=== PATIENT | female | born 1970 | race American Indian/Alaskan Native ===

== ENCOUNTER 2016-12-17 08:56 | Emergency (ER) | payer OTHER ==
[2016-12-17 09:42] LABS: Basophils % (Auto) 1.2 % (0.0-1.8); Eosinophils % (Auto) 1.9 % (0.0-4.3); Hematocrit 24.2 % (30.3-42.9); Hemoglobin 7.8 gm/dl (10.1-14.3); Mean Corpuscular HGB Conc 32 % (30-34); Mean Corpuscular Volume 72 fl (79-97); Platelet Count 166 K/mm3 (140-440); Red Blood Count 3.37 M/mm3 (3.65-5.03); Reticulocyte % 1.85 % (0.78-2.58); White Blood Count 5.9 K/mm3 (4.5-11.0)
[2016-12-17 10:05] LABS: Mean Corpuscular Hemoglobin 23 pg (28-32); Red Cell Distribution Width 21.8 % (13.2-15.2)
[2016-12-17] MEDS ORDERED: ZOFRAN IV ONE (13:07)
[2016-12-17] MEDS ORDERED: NACL 0.9% 1000 ML 1,000 ML IV ONE (13:07)
--- NOTE | 2016-12-17 13:24 | Emergency Department Report ---
ED General Adult HPI - General Chief complaint: Sickle Cell Crisis Stated complaint: SICKLE CELL CRISIS/CHEST PAIN/NAUSEA Time Seen by Provider: 12/17/16 13:06 Source: patient Mode of arrival: Ambulatory Limitations: No Limitations - History of Present Illness MD Complaint: sickle cell crisis -: Gradual Location: buttocks, left, right, upper extremity, lower extremity Radiation: back Severity scale (0 -10): 5 Quality: stabbing, sharp, constant Worsens with: none Associated Symptoms: denies other symptoms. denies: confusion, chest pain, cough, diaphoresis, fever/chills, headaches, loss of appetite, malaise, nausea/ vomiting, rash, shortness of breath, syncope Treatments Prior to Arrival: none - Related Data Previous Rx's Medication Instructions Recorded Last Taken Type HYDROcodone/APAP 10-325 [[place] 1 each PO BID #20 tablet 12/17/16 Unknown Rx 10/325] Allergies Allergy/AdvReac Type Severity Reaction Status Date / Time NSAIDS (Non-Steroidal AdvReac Unknown Verified 12/17/16 09:15 Anti-Inflamma promethazine HCl AdvReac Unknown Verified 12/17/16 09:14 [From Phenergan] tramadol AdvReac Unknown Verified 12/17/16 09:14 ED Review of Systems ROS: Stated complaint: SICKLE CELL CRISIS/CHEST PAIN/NAUSEA Other details as noted in HPI Comment: All other systems reviewed and negative ED Past Medical Hx - Past Medical History Hx of Cancer: Yes (Renal Cell Carcinoma) Hx Sickle Cell Disease: Yes - Surgical History Additional Surgical History: Removal left kidney, Thyroidectomy - Social History Smoking Status: Never Smoker Substance Use Type: Alcohol - Medications Home Medications: Home Medications Medication Instructions Recorded Confirmed Last Taken Type HYDROcodone/APAP 10-325 [[place] 1 each PO BID #20 tablet 12/17/16 Unknown Rx 10/325] ED Physical Exam - General Limitations: No Limitations General appearance: alert, in no apparent distress - Head Head exam: Present: atraumatic, normocephalic - Eye Eye exam: Present: normal appearance, PERRL, EOMI - ENT ENT exam: Present: normal exam, normal orophraynx, mucous membranes moist - Neck Neck exam: Present: normal inspection - Respiratory Respiratory exam: Present: normal lung sounds bilaterally. Absent: respiratory distress - Cardiovascular Cardiovascular Exam: Present: regular rate, normal rhythm. Absent: systolic murmur, diastolic murmur, rubs, gallop - GI/Abdominal GI/Abdominal exam: Present: soft, normal bowel sounds - Extremities Exam Extremities exam: Present: normal inspection - Back Exam Back exam: Present: normal inspection - Neurological Exam Neurological exam: Present: alert, oriented X3 - Psychiatric Psychiatric exam: Present: normal affect, normal mood - Skin Skin exam: Present: warm, dry, intact, normal color. Absent: rash ED Course Vital Signs 12/17/16 12/17/16 12/17/16 09:08 13:51 15:23 Temperature 98.6 F Pulse Rate 73 74 Respiratory 20 20 20 Rate Blood Pressure 119/74 Blood Pressure 122/74 [Left] O2 Sat by Pulse 100 100 Oximetry 12/17/16 12/17/16 16:38 17:30 Temperature Pulse Rate Respiratory 18 18 Rate Blood Pressure Blood Pressure [Left] O2 Sat by Pulse Oximetry ED Medical Decision Making - Lab Data Result diagrams: 12/17/16 09:20 - Radiology Data Radiology results: report reviewed, image reviewed - Medical Decision Making patient doing well , wishes to go home at this time and doesnt want to wait for rest of the labs, will refill her pain meds and follow up on Sunday Critical care attestation.: If time is entered above; I have spent that time in minutes in the direct care of this critically ill patient, excluding procedure time. ED Disposition Clinical Impression: Sickle cell anemia Disposition: - TO HOME OR SELFCARE Is pt being admited?: No Does the pt Need Aspirin: No Prescriptions: HYDROcodone/APAP 10-325 [[place] 10/325] 1 each PO BID #20 tablet Referrals: PRIMARY CARE, [Primary Care Provider] - 3-5 Days Time of Disposition: 17:16
[2016-12-17] MEDS ORDERED: DILAUDID IV ONE ×2 (13:37→18:12)
[2016-12-17 15:23] VITALS: BP 122/74
[2016-12-17] MEDS ORDERED: BENADRYL ONE (16:46)
[2016-12-17] MEDS ORDERED: DILAUDID ONE (16:47)
[2016-12-17] MEDS ORDERED: BENADRYL IV ONE (18:12)
--- NOTE | 2016-12-18 07:21 | XRay Report ---
AP CHEST: HISTORY: Chest pain, sickle cell disease AP view of the chest demonstrates a normal mediastinal and cardiac contour with clear lungs and normal bony and soft tissue structures. IMPRESSION: Unremarkable AP chest.
== END 2016-12-17 18:15 | disposition home or self-care (01) ==
LOC: ED 08:56
DX: D57.1 Sickle-cell disease without crisis (principal)
CPT/HCPCS: 36415; 71010; 83690; 84702; 85025; 85045; 93005; 93010; 96374; 96375; 96376; 99284; J1170; J1200; J2405; J7030

== ENCOUNTER 2016-12-21 15:44 | Inpatient (IN) | payer SELFPAY ==
[2016-12-21] MEDS ORDERED: D5NS 0.2% 1,000 ML IV SCH (17:00)
[2016-12-21 17:29] LABS: Basophils % (Auto) 1.4 % (0.0-1.8); Eosinophils % (Auto) 3.1 % (0.0-4.3); Hematocrit 25.3 % (30.3-42.9); Hemoglobin 8.1 gm/dl (10.1-14.3); Mean Corpuscular HGB Conc 32 % (30-34); Mean Corpuscular Volume 74 fl (79-97); Platelet Count 182 K/mm3 (140-440); Red Blood Count 3.45 M/mm3 (3.65-5.03); Reticulocyte % 2.06 % (0.78-2.58); White Blood Count 6.8 K/mm3 (4.5-11.0)
[2016-12-21 17:43] LABS: Mean Corpuscular Hemoglobin 23 pg (28-32); Red Cell Distribution Width 21.9 % (13.2-15.2)
[2016-12-22] MEDS ORDERED: ZOFRAN IV ONE (02:59)
[2016-12-22] MEDS ORDERED: DILAUDID IV ONE (02:59)
[2016-12-22] MEDS ORDERED: BENADRYL IV ONE (02:59)
--- NOTE | 2016-12-22 02:59 | Emergency Department Report ---
ED General Adult HPI - General Chief complaint: Sickle Cell Crisis Stated complaint: SICKLE CELL PAIN/NAUSEA/CHEST PAIN Time Seen by Provider: 12/22/16 02:17 Source: patient Mode of arrival: Ambulatory Limitations: No Limitations - History of Present Illness Initial comments: 46-year-old female with a past medical history of sickle cell S as a renal cell carcinoma with left nephrectomy as well as previous cholecystectomy presents to the hospital complains of generalized body pain secondary sickle cell crisis. Patient was seen here on December [address] Olmstead for the same and prescribed hydrocodone 20 tablets. Patient states pain has worsened and now she complains of bilateral hand and feet swelling. Symptoms sudden onset in intensity, constant, no aggravating or alleviating factors. Patient denies fever. Patient complains of chest tightness and dyspnea on exertion. No reports of cough or fever. Patient states she only has a crisis every 1-1.5 years, she does not have a port, and she just moved here from [place] Severity scale (0 -10): 8 - Related Data Previous Rx's Medication Instructions Recorded Last Taken Type HYDROcodone/APAP 10-325 [[place] 1 each PO BID #20 tablet 12/17/16 Unknown Rx 10/325] Allergies Allergy/AdvReac Type Severity Reaction Status Date / Time NSAIDS (Non-Steroidal AdvReac Unknown Verified 12/17/16 09:15 Anti-Inflamma promethazine HCl AdvReac Unknown Verified 12/17/16 09:14 [From Phenergan] tramadol AdvReac Unknown Verified 12/17/16 09:14 ED Review of Systems ROS: Stated complaint: SICKLE CELL PAIN/NAUSEA/CHEST PAIN Other details as noted in HPI Comment: All other systems reviewed and negative Other: Constitutional: No fevers chills Eyes: No eye pain visual changes ENT: No ear pain or throat pain Neck: Denies pain Respiratory: Denies cough wheezing shortness of breath Cardiovascular: As per HPI GI: Denies abdominal pain, nausea, vomiting, diarrhea : Denies dysuria Musculoskeletal: As per HPI Skin: Denies rash, lesions, erythema Neurologic: Denies headache, numbness, weakness Psychiatric: Denies suicidal ideation, hallucinations ED Past Medical Hx - Past Medical History Previous Medical History?: Yes Hx Sickle Cell Disease: Yes Additional medical history: Renal cell carcinoma - Surgical History Past Surgical History?: Yes Hx Cholecystectomy: Yes Additional Surgical History: Removal left kidney, Thyroidectomy. 3 c section - Social History Smoking Status: Never Smoker Substance Use Type: None - Medications Home Medications: Home Medications Medication Instructions Recorded Confirmed Last Taken Type HYDROcodone/APAP 10-325 [[place] 1 each PO BID #20 tablet 12/17/16 Unknown Rx 10/325] ED Physical Exam - General Limitations: No Limitations - Other Other exam information: General: No limitations, patient is alert in no acute distress Head exam: Atraumatic, normocephalic Eyes exam: Normal appearance ENT: Moist mucous membrane, normal oropharynx Neck exam: Normal inspection, full range of motion, no meningismus nontender Respiratory exam: Clear to auscultation bilateral, no wheezes, rales, crackles Cardiovascular: Normal rate and rhythm, normal heart sounds Abdomen: Soft, nondistended, and nontender, with normal bowel sounds, no rebound, or guarding Extremity: Full range of motion normal inspection no deformity, no calf tenderness , mild nonpitting pedal edema. No noticeable hand edema Back: Normal Inspection, full range of motion, no tenderness Neurologic: Alert, oriented x3, cranial nerves intact, no motor or sensory deficit Psychiatric: normal affect, normal mood Skin: Warm, dry, intact ED Course Vital Signs 12/21/16 12/22/16 12/22/16 16:56 01:50 01:53 Temperature 98 F Pulse Rate 87 69 71 Respiratory 16 11 L 14 Rate Blood Pressure 143/90 131/86 Blood Pressure [Left] O2 Sat by Pulse 100 100 Oximetry 12/22/16 12/22/16 12/22/16 02:00 02:11 02:21 Temperature Pulse Rate 59 L 74 72 Respiratory 13 14 11 L Rate Blood Pressure 121/80 121/80 131/69 Blood Pressure [Left] O2 Sat by Pulse Oximetry 12/22/16 02:37 Temperature Pulse Rate 69 Respiratory Rate Blood Pressure Blood Pressure 131/69 [Left] O2 Sat by Pulse Oximetry - Reevaluation(s) Reevaluation #1: 12/22/16 03:07 Dilaudid, Zofran, and Benadryl ordered ED Medical Decision Making - Lab Data Result diagrams: 12/21/16 17:13 Lab Results 12/21/16 Range/Units 17:13 WBC 6.8 (4.5-11.0) K/mm3 RBC 3.45 L (3.65-5.03) M/mm3 Hgb 8.1 L (10.1-14.3) gm/dl Hct 25.3 L (30.3-42.9) % MCV 74 L (79-97) fl MCH 23 L (28-32) pg MCHC 32 (30-34) % RDW 21.9 H (13.2-15.2) % Plt Count 182 (140-440) K/mm3 Lymph % (Auto) 30.8 (13.4-35.0) % [place] % (Auto) 5.8 (0.0-7.3) % Eos % (Auto) 3.1 (0.0-4.3) % Baso % (Auto) 1.4 (0.0-1.8) % Lymph # 2.1 (1.2-5.4) K/mm3 [place] # 0.4 (0.0-0.8) K/mm3 Eos # 0.2 (0.0-0.4) K/mm3 Baso # 0.1 (0.0-0.1) K/mm3 Seg Neutrophils % 58.9 (40.0-70.0) % Seg Neutrophils # 4.0 (1.8-7.7) K/mm3 Percent Retic 2.06 (0.78-2.58) % - Radiology Data Radiology results: image reviewed (chest x-ray:naf) - Medical Decision Making Patient will be admitted for sickle cell crisis since she is requiring repeat ER visitation this week. She does not require blood transfusion, white count normal without signs of infection. Sickle cell test has been ordered to verify her status given that she has normal retake counts with her crisis - Differential Diagnosis sickle cell crisis, drug-seeking, anemia, acute chest Critical Care Time: No Critical care attestation.: If time is entered above; I have spent that time in minutes in the direct care of this critically ill patient, excluding procedure time. ED Disposition Clinical Impression: Sickle cell anemia with crisis Disposition: OP ADMIT IP TO THIS HOSP Is pt being admited?: Yes Condition: Stable Time of Disposition: 02:58 (Dr Galindo/hosp)
[2016-12-22] MEDS ORDERED: ZOFRAN IV PRN (03:49)
[2016-12-22] MEDS ORDERED: MILK OF MAGNESIA PO PRN (03:49)
[2016-12-22] MEDS ORDERED: DULCOLAX PR PRN (03:49)
--- NOTE | 2016-12-22 03:53 | History and Physical Report ---
History of Present Illness Date of examination: 12/22/16 History of present illness: 46-year-old man with a history of sickle cell, renal cell cancer comes emergency room complaining of pain in the arms and legs, achy, constant since last week, intensity 6/10, no radiation any cannot identify exacerbating or relieving factors. Also complaining of chest pain and shortness of breath, worse with activity. Patient with recent travel to [place] and [place] Patient denies palpitation, abdominal pain, hematochezia, dysuria, frequency, focal weakness, dysarthria, fever chills, polydipsia polyuria, hot or cold intolerance, easy bruisability, or rash or bleeding from mucosal membrane, rhinorrhea, epistaxis, earache, tinnitus, blurry vision, eye discharge, anxiety , depression. Other review of systems negative PAST SURGICAL HISTORY: Left nephrectomy, cholecystectomy, partial thyroidectomy , , left oophorectomy SOCIAL HISTORY: Social alcohol, no tobacco or drugs FAMILY HISTORY: Hypertension Medications and Allergies Allergies Allergy/AdvReac Type Severity Reaction Status Date / Time NSAIDS (Non-Steroidal AdvReac Unknown Verified 12/17/16 09:15 Anti-Inflamma promethazine HCl AdvReac Unknown Verified 12/17/16 09:14 [From Phenergan] tramadol AdvReac Unknown Verified 12/17/16 09:14 Home Medications Medication Instructions Recorded Confirmed Last Taken Type HYDROcodone/APAP 10-325 [[place] 1 each PO BID #20 tablet 12/17/16 Unknown Rx 10/325] Active Meds: Active Medications Dextrose/Sodium Chloride (D5ns 0.2%) 1,000 mls @ 250 mls/hr IV DIRECT RYANNE Exam - Physical Exam Narrative exam: Gen. appearance: Patient lying in bed, no apparent distress HEENT: Normocephalic, atraumatic, pupils equally round and reactive to light, extraocular movement intact, and no sclericterus,. No JVD or thyromegaly or nodule,neck supple, no carotid bruit ,mucous membranes moist, no exudate or erythema Heart: S1, S2, regular rate and rhythm Lungs: Clear to auscultation bilaterally, breathing comfortable Abdomen: Positive bowel sounds, nontender, nondistended, no organomegaly Extremity: No edema, cyanosis, clubbing Skin: No rash, nodules, warm, dry Neuro: Oriented 3, cranial nerves II-12 intact, speech is fluent, motor and sensory intact - Constitutional Vitals: Temp Pulse Resp BP Pulse Ox 98 F 69 11 L 131/69 100 12/21/16 16:56 12/22/16 02:37 12/22/16 02:21 12/22/16 02:37 12/22/16 01:53 Results - Labs CBC & Chem 7: 12/21/16 17:13 Labs: Abnormal lab results 12/21/16 Range/Units 17:13 RBC 3.45 L (3.65-5.03) M/mm3 Hgb 8.1 L (10.1-14.3) gm/dl Hct 25.3 L (30.3-42.9) % MCV 74 L (79-97) fl MCH 23 L (28-32) pg RDW 21.9 H (13.2-15.2) % - Imaging and Cardiology EKG: image reviewed Chest x-ray: image reviewed Assessment and Plan Sickle cell crisis Chest pain, rule out PE Admit to medicine Start IV fluids, IV narcotics Check d-dimer, cardiac enzymes, chemistry, CBC, retic and LDH Start DVT prophylaxis
[2016-12-22] MEDS ORDERED: D5/0.45NS 1,000 ML IV SCH (04:00)
[2016-12-22 04:32] LABS: BUN/Creatinine Ratio 9.16; Calcium 8.5 mg/dL (8.4-10.2); Chloride 100.1 mmol/L (98-107); Potassium 3.6 mmol/L (3.6-5.0)
[2016-12-22] MEDS: OxyCONTIN PO SCH ×2 (05:21→13:25)
--- NOTE | 2016-12-22 07:52 | XRay Report ---
Single chest are compared to 12/17/16. History: Chest pain. Shortness of breath. Findings: Normal cardiomediastinal silhouette. Trachea is midline. No consolidation, pneumothorax or pleural effusion. Impression: No acute cardiopulmonary findings.
[2016-12-22] MEDS: MORPHINE IV PRN ×3 (08:22→21:28)
[2016-12-22] MEDS: FOLVITE PO SCH (09:58)
[2016-12-22] MEDS: LOVENOX SUB-Q SCH (09:58)
[2016-12-22] MEDS: THERAGRAN Tab PO SCH (09:58)
[2016-12-22] MEDS ORDERED: LOVENOX SUB-Q SCH (10:00)
--- NOTE | 2016-12-22 12:44 | Admit Criteria Form ---
Admission Criteria Documentation: SICKLE CELL DISEASE Clinical Indications for Admission to Inpatient Care (Place 'X' for any and all applicable criteria): Admission is indicated for ANY ONE of the following(1)(2)(3)(4)(5): [ X]I. Inpatient admission required rather than observation care because of ANY ONE of the following: [ ]a) Altered mental status [ ]b) High fever or infection requiring inpatient admission as indicated by ANY ONE of the following: [ ]A. Appropriate outpatient observation care antimicrobial treatment unavailable, not effective, or not appropriate for infection [ ]B. Documented bacteremia [ ]C. Temp >104.9F (40.5C) (oral) [ ]D. Temp >103.1F (oral) or <96.8F(rectal) that does not respond to all emergency treatment measures [ ]c) Supplemental O2 or respiratory therapy for over 24 h that are performable only in acute inpatient setting [ ]d) Continuous parenteral narcoticsother major pain intervention for >24 h performable only in acute inpatient setting. [ ]e) Exchange transfusion [ X]f) Other condition, treatment or monitoring requiring inpatient admission [ ]II. Acute chest syndrome indicated by ALL of the following (10): [ ]a) New alveolar infiltrate involving at least one lung segment [ ]b) Associated pulmonary symptoms or findings as indicated by ANY ONE of the following: [ ]i) Chest pain [ ]ii) Hypoxemia [ ]iii) Tachypnea/dyspnea [ ]iv) Wheezing [ ]v) Cough [ ]vi) Sputum production [ ]III. Significant hypoxemia or acidosis (more severe than baseline) [ ]IV. Emergent surgery needed (eg, acute cholecystitis) [ ]V. -related complication(11) [ ]. Splenic or hepatic sequestration(12) [ ]VII. Aplastic crisis [ ]VIII. Priapism or other vascular complication(13) [ ]IX. Traumatic hyphema [A](14) [ ]X. Underlying condition requiring hospitalization (eg, osteomyelitis) [ ]XI. Signs or symptoms of central nervous system injury indicated by ANY ONE of the following: [ ]a) Stroke(9) [ ]b) Seizure [ ]c) Other significant central nervous system symptom or event [ ]XII. Acute renal failure Extended stay beyond goal length of stay may be needed for: [ ]a) Inadequate pain control [ ]b) Acute chest syndrome [ ]c) Sequestration or aplastic crisis (12) [ ]d) Pneumonia and asthma exacerbation [ ]e) Neurologic or vascular complications (25) [ ]f) Infection (eg, osteomyelitis) that requires ongoing treatment) The original [facility] [employer] content created by [facility] has been revised. The portions of the content which have been revised are identified through the use of italic text or in bold, and [facility] has neither reviewed nor approved the modified material. All other unmodified content is copyright [facility]. Please see references footnoted in the original [facility] edition 2016 Admission Criteria Met: Yes
--- NOTE | 2016-12-22 15:44 | Event Note ---
Date: 12/22/16 Patient was admitted this morning, and evaluated Medical records reviewed, agree with the current management Transfer to medical floor, possible discharge in 1-2 days if stable Plan of care discussed with the patient and her nurse
[2016-12-22] MEDS ORDERED: SENOKOT PO SCH (22:00)
[2016-12-23] MEDS: MORPHINE IV PRN (02:49)
[2016-12-23] MEDS: MORPHINE PO PRN ×2 (09:05→15:40)
[2016-12-23] MEDS: THERAGRAN Tab PO SCH (09:10)
[2016-12-23] MEDS: FOLVITE PO SCH (09:10)
[2016-12-23] MEDS: LOVENOX SUB-Q SCH (09:10)
[2016-12-23 10:48] LABS: Basophils % (Auto) 1.3 % (0.0-1.8); Eosinophils % (Auto) 3.1 % (0.0-4.3); Hematocrit 23.2 % (30.3-42.9); Hemoglobin 7.5 gm/dl (10.1-14.3); Mean Corpuscular HGB Conc 32 % (30-34); Mean Corpuscular Volume 73 fl (79-97); Platelet Count 159 K/mm3 (140-440); Reticulocyte % 2.09 % (0.78-2.58); White Blood Count 5.6 K/mm3 (4.5-11.0)
[2016-12-23 10:49] LABS: Mean Corpuscular Hemoglobin 23 pg (28-32); Red Cell Distribution Width 21.8 % (13.2-15.2)
--- NOTE | 2016-12-23 11:13 | Discharge Summary ---
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 initially evaluated managed symptomatically,patients h/h was closely monitored. symptoms significantly improved.on the day of discharge,patient is comfortable no new complaints and patient is hemodynamically and clinically stable for d/c home Disposition: DC-01 TO HOME OR SELFCARE Time spent for discharge: 31 min Core Measure Documentation - Palliative Care Palliative Care/ Comfort Measures: Not Applicable - Core Measures Any of the following diagnoses?: none Exam - Constitutional Vitals: Temp Pulse Resp BP Pulse Ox 97.9 F 46 L 18 90/50 98 12/23/16 08:00 12/23/16 08:00 12/23/16 08:00 12/23/16 08:00 12/23/16 08:00 General appearance: Present: no acute distress, well-nourished - EENT Eyes: Present: PERRL, EOM intact - Neck Neck: Present: supple, normal ROM - Respiratory Respiratory effort: normal Respiratory: bilateral: CTA, diminished, negative: rales, rhonchi, wheezing - Cardiovascular Rhythm: regular Heart Sounds: Present: S1 & S2 - Extremities Extremities: no ischemia, No edema Extremity abnormal: edema Peripheral Pulses: within normal limits - Abdominal General gastrointestinal: Present: soft, non-tender, non-distended, normal bowel sounds - Integumentary Integumentary: Present: clear, warm - Musculoskeletal Musculoskeletal: strength equal bilaterally - Psychiatric Psychiatric: appropriate mood/affect, cooperative - Neurologic Neurologic: CNII-XII intact, moves all extremities Plan Activity: no restrictions Diet: regular Additional Instructions: f/u private welder tech in 3-4 days. if you have chest pain or shortness of breath,contact MD or go to ER Follow up with: PRIMARY CARE, [Primary Care Provider] - 7 Days
[2016-12-23 16:38] VITALS: BP 124/80
== END 2016-12-23 17:05 | disposition home or self-care (01) | DRG 812 ==
LOC: ED 15:44 → 4A 12-22 03:49 → 3A 12-22 14:06
PROVIDERS: ADMIT Internal Medicine; ATTEND Internal Medicine
DX: D57.00 Hb-SS disease with crisis, unspecified (principal); E89.0 Postprocedural hypothyroidism; Z88.8 Allergy status to other drugs, medicaments and biological substances; Z90.5 Acquired absence of kidney; Z90.49 Acquired absence of other specified parts of digestive tract; Z90.721 Acquired absence of ovaries, unilateral; Z90.89 Acquired absence of other organs; Z82.49 Family history of ischemic heart disease and other diseases of the circulatory system
CPT/HCPCS: 36415; 71020; 80048; 83615; 85025; 85045; 85379; 85660; 96374; 96375; J1170; J1200; J1650; J2270; J2405

== ENCOUNTER 2017-01-26 21:13 | Emergency (ER) | payer SELFPAY ==
[2017-01-26] MEDS ORDERED: D5NS 0.2% 1,000 ML IV SCH (22:00)
[2017-01-26 22:09] LABS: Basophils % (Auto) 1.2 % (0.0-1.8); Eosinophils % (Auto) 1.9 % (0.0-4.3); Hematocrit 27.2 % (30.3-42.9); Hemoglobin 8.8 gm/dl (10.1-14.3); Mean Corpuscular HGB Conc 32 % (30-34); Mean Corpuscular Volume 74 fl (79-97); Platelet Count 196 K/mm3 (140-440); Red Blood Count 3.65 M/mm3 (3.65-5.03); Reticulocyte % 2.11 % (0.78-2.58); White Blood Count 6.6 K/mm3 (4.5-11.0)
[2017-01-26 22:10] LABS: Mean Corpuscular Hemoglobin 24 pg (28-32); Red Cell Distribution Width 20.1 % (13.2-15.2)
[2017-01-27 03:07] LABS: BUN/Creatinine Ratio 9.28; Calcium 9.9 mg/dL (8.4-10.2); Chloride 102.2 mmol/L (98-107); Potassium 3.7 mmol/L (3.6-5.0)
[2017-01-27] MEDS ORDERED: MORPHINE IV ONE ×2 (03:12→05:03)
[2017-01-27] MEDS ORDERED: NACL 0.9% 1000 ML 1,000 ML IV ONE (03:13)
--- NOTE | 2017-01-27 05:21 | Emergency Department Report ---
ED Chest Pain HPI - General Chief Complaint: Sickle Cell Crisis Stated Complaint: CHEST PAIN, SICKLE CELL PAIN Time Seen by Provider: 01/27/17 01:58 Source: patient Mode of arrival: Ambulatory Limitations: No Limitations - History of Present Illness Initial Comments: This is a 46-year-old Afro-[place] female presents to the emergency department with a 2 day history of sickle cell pain which included some chest pain, bilateral shoulder pain and leg pain. She denies any shortness of breath, nausea, vomiting, fever. She says that this is how her usual pain crisis presents. She took some folic acid, which she takes on a regular basis, but did not get any relief. She does not currently have a primary care physician as she just moved here from [place]. She denies any history of IA, CVA, PE/ DVT. She does have a left nephrectomy secondary to renal cell carcinoma in the past. Severity scale (0 -10): 6 - Related Data Home Medications Medication Instructions Recorded Confirmed Last Taken Folic Acid 20 mg PO QDAY 12/22/16 12/22/16 Unknown Previous Rx's Medication Instructions Recorded Last Taken Type HYDROcodone/APAP 5-325 [Cranberry 1 - 2 each PO Q6HR PRN #12 tablet 01/27/17 Unknown Rx 5/325] Allergies Allergy/AdvReac Type Severity Reaction Status Date / Time NSAIDS (Non-Steroidal AdvReac Unknown Verified 12/17/16 09:15 Anti-Inflamma promethazine HCl AdvReac Unknown Verified 12/17/16 09:14 [From Phenergan] tramadol AdvReac Unknown Verified 12/17/16 09:14 Heart Score - HEART Score History: Slightly suspicious EKG: Normal Age: 45-65 Risk factors: No known risk factors Troponin: < normal limit HEART Score: 1 - Critical Actions Critical Actions: 0-3 pts:0.9-1.7%risk of adverse cardiac event.Candidate for discharge ED Review of Systems ROS: Stated complaint: CHEST PAIN, SICKLE CELL PAIN Other details as noted in HPI Comment: All other systems reviewed and negative Constitutional: denies: chills, fever Eyes: denies: eye pain, eye discharge, vision change ENT: denies: ear pain, throat pain Respiratory: denies: cough, shortness of breath, wheezing Cardiovascular: chest pain. denies: palpitations, edema Gastrointestinal: denies: abdominal pain, nausea, diarrhea Genitourinary: denies: urgency, dysuria, discharge Musculoskeletal: arthralgia. denies: joint swelling Skin: denies: rash, lesions Neurological: denies: headache, weakness, paresthesias ED Past Medical Hx - Past Medical History Hx Congestive Heart Failure: No Hx Diabetes: No Hx Sickle Cell Disease: Yes Hx Asthma: No Hx COPD: No Additional medical history: Renal cell carcinoma - Surgical History Hx Cholecystectomy: Yes Additional Surgical History: Removal left kidney, Thyroidectomy. 3 c section, left oop - Social History Smoking Status: Never Smoker Substance Use Type: Alcohol - Medications Home Medications: Home Medications Medication Instructions Recorded Confirmed Last Taken Type Folic Acid 20 mg PO QDAY 12/22/16 12/22/16 Unknown History HYDROcodone/APAP 5-325 [Cranberry 1 - 2 each PO Q6HR PRN #12 tablet 01/27/17 Unknown Rx 5/325] ED Physical Exam - General Limitations: No Limitations - Other Other exam information: GENERAL: The patient is well-developed well-nourished. HEENT: Normocephalic. Atraumatic. Extraocular motions are intact. Patient has moist mucous membranes. Pupils equal reactive to light bilaterally. NECK: Supple. Trachea is midline. CHEST/LUNGS: Clear to auscultation. There is no respiratory distress noted. There is some reproducible tenderness to palpation along the chest wall. HEART/CARDIOVASCULAR: Regular. There is no tachycardia. There is no gallop rub or murmur. ABDOMEN: Abdomen is soft, nontender. Patient has normal bowel sounds. There is no abdominal distention. SKIN: Skin is warm and dry. NEURO: The patient is awake, alert, and oriented. The patient is cooperative. The patient has no focal neurologic deficits. The patient has normal speech. MUSCULOSKELETAL: There is no tenderness or deformity. There is no limitation range of motion. There is no evidence of acute injury. Radial pulse +2 over 4 bilaterally. Muscle strength 5 out of 5 for upper and lower extremities bilaterally. ED Course Vital Signs 01/26/17 01/27/17 01/27/17 21:27 00:53 01:00 Temperature 98.1 F Pulse Rate 95 H 73 76 Respiratory 18 19 21 Rate Blood Pressure 134/95 133/93 Blood Pressure [Left] O2 Sat by Pulse 95 Oximetry 01/27/17 01/27/17 01/27/17 01:01 01:10 01:20 Temperature 97.7 F Pulse Rate 74 70 85 Respiratory 20 18 12 Rate Blood Pressure 133/93 129/87 Blood Pressure 136/90 [Left] O2 Sat by Pulse 100 Oximetry 01/27/17 01/27/17 01/27/17 01:30 01:40 01:50 Temperature Pulse Rate 78 66 77 Respiratory 11 L 11 L 11 L Rate Blood Pressure 126/82 129/87 127/91 Blood Pressure [Left] O2 Sat by Pulse 100 Oximetry 01/27/17 01/27/17 01/27/17 02:00 02:10 02:20 Temperature Pulse Rate 71 73 71 Respiratory 15 14 15 Rate Blood Pressure 130/90 130/90 128/79 Blood Pressure [Left] O2 Sat by Pulse 99 100 95 Oximetry 01/27/17 01/27/17 01/27/17 02:30 03:00 03:30 Temperature Pulse Rate 69 69 70 Respiratory 15 18 14 Rate Blood Pressure 123/75 126/87 120/90 Blood Pressure [Left] O2 Sat by Pulse 98 96 99 Oximetry 01/27/17 01/27/17 01/27/17 04:00 04:30 04:42 Temperature Pulse Rate 66 66 66 Respiratory 19 16 Rate Blood Pressure 121/72 118/64 Blood Pressure [Left] O2 Sat by Pulse 93 92 Oximetry 01/27/17 01/27/17 05:00 05:39 Temperature Pulse Rate 53 L Respiratory 16 18 Rate Blood Pressure 109/65 Blood Pressure [Left] O2 Sat by Pulse 94 100 Oximetry BONNIE score - Bonnie Score Age > 65: (0) No Aspirin use within the Past 7 Days: (0) No 3 or more CAD Risk Factors: (0) No 2 or more Angina events in past 24 hrs: (1) Yes (if pain is angina) Known CAD with more than 50% Stenosis: (0) No Elevated Cardiac Markers: (0) No ST Deviation Greater than 0.5mm: (0) No BONNIE Score: 1 ED Medical Decision Making - Lab Data Result diagrams: 01/26/17 21:56 01/27/17 02:30 - EKG Data -: EKG Interpreted by Mn EKG shows normal: sinus rhythm, axis, intervals, QRS complexes (Q waves to the septal leads and borderline Q waves to the inferior leads), ST-T waves Rate: normal - EKG Data When compared to previous EKG there are: no significant change Interpretation: unchanged when compared t (12/17/16) - Radiology Data Radiology results: image reviewed interpreted by me: Chest x-ray did not show any acute process. Heart is normal shape and size. No effusions. No pneumothorax. No signs of pneumonia seen. - Medical Decision Making 46-year-old female with sickle cell presents with some joint pains, chest pain. EKG does not show any signs of ST elevation IA, or dysrhythmia. Labs are mostly unremarkable including negative troponins 2 and a negative d-dimer. Reticulocyte count is only 2. Hemoglobin is around 8.8 which is higher than previous visit. Chest x-ray does not show any acute process. Vital signs stable including being afebrile. She appears low suspicion for chest crisis. She is low on the heart score criteria and low on the BONNIE score. Patient did have some renal insufficiency. She has a history of a nephrectomy. She is urinating well but will be given a referral for nephrology. She was given some IV fluid as well as some pain medication. Upon reevaluation she says she is feeling much improved. She appears safe for discharge home at this time. She was given a referral for cardiology, nephrology, and primary care. She will return to the ER for any worsening of her symptoms or any acute distress. - Differential Diagnosis chest crisis, IA, PE, pneumonia, costochondritis Critical Care Time: No Critical care attestation.: If time is entered above; I have spent that time in minutes in the direct care of this critically ill patient, excluding procedure time. ED Disposition Clinical Impression: Sickle cell anemia with crisis, Body aches, Renal insufficiency Chest pain Qualifiers: Chest pain type: unspecified Qualified Code(s): R07.9 - Chest pain, unspecified Disposition: DC-01 TO HOME OR SELFCARE Is pt being admited?: No Condition: Stable Instructions: Chest Pain (ED), Sickle Cell Crisis (ED) Additional Instructions: Please follow-up with a primary care physician as soon as possible. I referral for a local painting trades worker, Dr. Galindo, in case you would like to follow up regarding your chest pain. Return to the emergency department with any recurrence of her chest pain, worsening of your symptoms, development of fever, or any acute distress. You've been prescribed a medication that is sedating. Therefore this medication cannot be mixed with alcohol, or taken prior to driving, working, or being responsible for children. Prescriptions: HYDROcodone/APAP 5-325 [Cranberry 5/325] 1 - 2 each PO Q6HR PRN #12 tablet PRN Reason: Pain Referrals: [facility] [Outside] - 3-5 Days ESTELLA GALINDO MD [Staff Physician] - 3-5 Days PRIMARY CARE, [Primary Care Provider] - 3-5 Days ALBERT HOOKS MD [Staff Physician] - 3-5 Days Time of Disposition: 05:50
[2017-01-27 05:38] VITALS: BP 109/65
--- NOTE | 2017-01-27 09:12 | XRay Report ---
Single view chest: Compared to 12/22/16. History: Chest pain. Findings: Borderline cardiomegaly. Trachea is midline. No consolidation, pneumothorax or pleural effusion. Impression: No acute cardiopulmonary findings.
== END 2017-01-27 06:03 | disposition home or self-care (01) ==
LOC: ED 21:13
DX: D57.00 Hb-SS disease with crisis, unspecified (principal); N28.9 Disorder of kidney and ureter, unspecified; R07.9 Chest pain, unspecified; Z88.8 Allergy status to other drugs, medicaments and biological substances
CPT/HCPCS: 36415; 71010; 80048; 84484; 85025; 85045; 85379; 93005; 93010; 96361; 96374; 96376; 99284; J2270; J7030

== ENCOUNTER 2017-05-26 01:43 | Inpatient (IN) | payer MEDICAID ==
[2017-05-26 02:48] LABS: Basophils % (Auto) 0.6 % (0.0-1.8); Eosinophils % (Auto) 1.6 % (0.0-4.3); Hematocrit 24.8 % (30.3-42.9); Mean Corpuscular HGB Conc 32 % (30-34); Platelet Count 217 K/mm3 (140-440); Red Blood Count 3.67 M/mm3 (3.65-5.03); Red Cell Distribution Width 19.6 % (13.2-15.2); Reticulocyte % 1.94 % (0.78-2.58); White Blood Count 7.7 K/mm3 (4.5-11.0)
[2017-05-26 02:58] LABS: BUN/Creatinine Ratio 15; Blood Urea Nitrogen 16 mg/dL (7-17); Calcium 9.3 mg/dL (8.4-10.2); Carbon Dioxide 20 mmol/L (22-30); Glucose 97 mg/dL (65-100)
[2017-05-26 03:25] LABS: Anion Gap 19 mmol/L; Potassium 3.6 mmol/L (3.6-5.0); Sodium 138 mmol/L (137-145)
[2017-05-26 04:06] LABS: Mean Corpuscular Hemoglobin 22 pg (28-32); Mean Corpuscular Volume 68 fl (79-97)
--- NOTE | 2017-05-26 05:15 | XRay Report ---
FINAL REPORT EXAM: XR CHEST 1V AP HISTORY: chest pain TECHNIQUE: A portable upright view of the chest was submitted. There are no previous studies available for comparison. FINDINGS: The heart size and mediastinum appear normal. The lungs are clear. There EKG leads overlying the chest wall. The bones and soft tissues otherwise reveal obesity. IMPRESSION: No active chest disease.
--- NOTE | 2017-05-26 07:26 | Emergency Department Report ---
ED Chest Pain HPI - General Chief Complaint: Chest Pain Stated Complaint: CP/SICKLE CELL CRISIS Time Seen by Provider: 05/26/17 06:56 Source: patient Mode of arrival: Ambulatory Limitations: No Limitations - History of Present Illness Initial Comments: Patient complains of tightness across her chest which does not radiate down her arms. She states that she's had this since yesterday and it's only mildly persistent. She does not complain of shortness of breath or cough. She denies any leg pain. She states she has had some leg swelling however bilaterally. The patient has been worked up at this facility before she has sickle cell disease. She's had a few admissions for chest pain. She's had a VQ scan which was recently negative. She has no history of VTE. She states that she has been treated for atrial fibrillation which was related to hyperthyroidism. She' s had a partial thyroidectomy. She is not on a blood thinner. She cannot identify a intranet developer that she has seen in the office. Apparently her heart workup for atrial fibrillation did not take place here. Complaint: chest pain -: Gradual Onset: during rest Pain Location: other (across the anterior chest) Pain Radiation: none Severity scale (0 -10): 9 Quality: tightness Consistency: constant, now resolved (now much improved mildly persistent) Improves With: nothing Worsens With: nothing Context: other (sickle cell disease.) re: denies: nausea, vomting, diaphoresis Other Symptoms: denies: cough, fever, syncope Treatments Prior to Arrival: none Aspirin use within the Past 7 Days: (0) No - Related Data Home Medications Medication Instructions Recorded Confirmed Last Taken Folic Acid 20 mg PO QDAY 12/22/16 05/26/17 Unknown Levothyroxine [Synthroid] 125 mcg PO QAM 05/26/17 05/26/17 Unknown Allergies Allergy/AdvReac Type Severity Reaction Status Date / Time NSAIDS (Non-Steroidal AdvReac Unknown Verified 12/17/16 09:15 Anti-Inflamma promethazine HCl AdvReac Unknown Verified 12/17/16 09:14 [From Phenergan] tramadol AdvReac Unknown Verified 12/17/16 09:14 Heart Score - HEART Score History: Moderately suspicious EKG: Non-specific Age: 45-65 Risk factors: 1-2 risk factors Troponin: < normal limit HEART Score: 4 - Critical Actions Critical Actions: 4-6 pts:12-16.6% risk of adverse cardiac event. Should be admitted ED Review of Systems ROS: Stated complaint: CP/SICKLE CELL CRISIS Other details as noted in HPI Constitutional: denies: chills, fever Eyes: denies: eye pain, eye discharge, vision change ENT: denies: ear pain, throat pain Respiratory: denies: cough, shortness of breath, wheezing Cardiovascular: denies: chest pain, palpitations Endocrine: no symptoms reported Gastrointestinal: denies: abdominal pain, nausea, diarrhea Genitourinary: denies: urgency, dysuria, discharge Musculoskeletal: arthralgia, other. denies: back pain, joint swelling Skin: denies: rash, lesions Neurological: denies: headache, weakness, paresthesias Psychiatric: denies: anxiety, depression Hematological/Lymphatic: denies: easy bleeding, easy bruising ED Past Medical Hx - Past Medical History Hx Congestive Heart Failure: No Hx Diabetes: No Hx Sickle Cell Disease: Yes Hx Asthma: No Hx COPD: No Additional medical history: Renal cell carcinoma - Surgical History Hx Cholecystectomy: Yes Additional Surgical History: Removal left kidney, Thyroidectomy. 3 c section, left oop - Social History Smoking Status: Never Smoker Substance Use Type: None - Medications Home Medications: Home Medications Medication Instructions Recorded Confirmed Last Taken Type Folic Acid 20 mg PO QDAY 12/22/16 05/26/17 Unknown History Levothyroxine [Synthroid] 125 mcg PO QAM 05/26/17 05/26/17 Unknown History ED Physical Exam - General Limitations: No Limitations General appearance: alert, in no apparent distress - Head Head exam: Present: atraumatic, normocephalic. Absent: normal inspection - Eye Eye exam: Present: normal appearance. Absent: scleral icterus - ENT ENT exam: Present: mucous membranes moist - Neck Neck exam: Present: normal inspection - Respiratory Respiratory exam: Present: normal lung sounds bilaterally. Absent: respiratory distress - Cardiovascular Cardiovascular Exam: Present: regular rate, normal rhythm. Absent: systolic murmur, diastolic murmur, rubs, gallop - GI/Abdominal GI/Abdominal exam: Present: soft, normal bowel sounds. Absent: distended, tenderness, guarding, rebound, rigid - Extremities Exam Extremities exam: Present: full ROM, normal capillary refill, pedal edema (trace ), other (1+ pretibial edema bilaterally). Absent: tenderness, joint swelling, calf tenderness - Back Exam Back exam: Present: normal inspection - Neurological Exam Neurological exam: Present: alert, oriented X3, CN II-XII intact. Absent: motor sensory deficit - Psychiatric Psychiatric exam: Present: normal affect, normal mood - Skin Skin exam: Present: warm, dry, intact, normal color. Absent: rash ED Course Vital Signs 05/26/17 05/26/17 05/26/17 02:11 03:51 03:59 Temperature 98.1 F 98 F Pulse Rate 82 104 H 74 Respiratory 13 18 Rate Blood Pressure 142/94 Blood Pressure 133/87 [Left] O2 Sat by Pulse 100 96 Oximetry 05/26/17 05/26/17 05/26/17 04:00 05:00 06:00 Temperature Pulse Rate 65 61 76 Respiratory 21 14 18 Rate Blood Pressure 127/75 127/75 139/73 Blood Pressure [Left] O2 Sat by Pulse 98 99 96 Oximetry 05/26/17 07:00 Temperature Pulse Rate 76 Respiratory 13 Rate Blood Pressure 129/81 Blood Pressure [Left] O2 Sat by Pulse 100 Oximetry - Reevaluation(s) Reevaluation #1: D-dimer was negative. Coags and pro BNP are pending. Chest x-ray is negative. 05/26/17 08:50 Reevaluation #2: I will order repeat EKG. The patient is being seen by the hospitalist and admitted to telemetry for further care and evaluation stable condition. 05/26/17 08:52 BONNIE score - Bonnie Score Age > 65: (0) No Aspirin use within the Past 7 Days: (0) No 3 or more CAD Risk Factors: (0) No 2 or more Angina events in past 24 hrs: (1) Yes (if pain is angina) Known CAD with more than 50% Stenosis: (0) No Elevated Cardiac Markers: (0) No ST Deviation Greater than 0.5mm: (0) No BONNIE Score: 1 ED Medical Decision Making - Lab Data Result diagrams: 05/26/17 02:20 05/26/17 02:20 Laboratory Results - last 24 hr 05/26/17 05/26/17 05/26/17 02:20 02:20 03:59 WBC 7.7 RBC 3.67 Hgb 8.0 L Hct 24.8 L MCV 68 L MCH 22 L MCHC 32 RDW 19.6 H Plt Count 217 Lymph % (Auto) 24.1 [place] % (Auto) 6.8 Eos % (Auto) 1.6 Baso % (Auto) 0.6 Lymph # 1.9 [place] # 0.5 Eos # 0.1 Baso # 0.0 Seg Neutrophils % 66.9 Seg Neutrophils # 5.2 Percent Retic 1.94 D-Dimer Sodium 138 Potassium 3.6 Chloride 103.0 Carbon Dioxide 20 L Anion Gap 19 BUN 16 Creatinine 1.1 Estimated GFR > 60 BUN/Creatinine Ratio 15 Glucose 97 Calcium 9.3 Troponin T < 0.010 HCG, Qual Negative 05/26/17 05/26/17 05:13 05:13 WBC RBC Hgb Hct MCV MCH MCHC RDW Plt Count Lymph % (Auto) [place] % (Auto) Eos % (Auto) Baso % (Auto) Lymph # [place] # Eos # Baso # Seg Neutrophils % Seg Neutrophils # Percent Retic D-Dimer < 135 Sodium Potassium Chloride Carbon Dioxide Anion Gap BUN Creatinine Estimated GFR BUN/Creatinine Ratio Glucose Calcium Troponin T < 0.010 HCG, Qual Laboratory Results - last 24 hr 05/26/17 05/26/17 05/26/17 02:20 02:20 03:59 WBC 7.7 RBC 3.67 Hgb 8.0 L Hct 24.8 L MCV 68 L MCH 22 L MCHC 32 RDW 19.6 H Plt Count 217 Lymph % (Auto) 24.1 [place] % (Auto) 6.8 Eos % (Auto) 1.6 Baso % (Auto) 0.6 Lymph # 1.9 [place] # 0.5 Eos # 0.1 Baso # 0.0 Seg Neutrophils % 66.9 Seg Neutrophils # 5.2 Percent Retic 1.94 D-Dimer Sodium 138 Potassium 3.6 Chloride 103.0 Carbon Dioxide 20 L Anion Gap 19 BUN 16 Creatinine 1.1 Estimated GFR > 60 BUN/Creatinine Ratio 15 Glucose 97 Calcium 9.3 Magnesium Total Bilirubin AST ALT Alkaline Phosphatase Troponin T < 0.010 NT-Pro-B Natriuret Pep Total Protein Albumin Albumin/Globulin Ratio HCG, Qual Negative 05/26/17 05/26/17 05/26/17 05:13 05:13 08:09 WBC RBC Hgb Hct MCV MCH MCHC RDW Plt Count Lymph % (Auto) [place] % (Auto) Eos % (Auto) Baso % (Auto) Lymph # [place] # Eos # Baso # Seg Neutrophils % Seg Neutrophils # Percent Retic D-Dimer < 135 Sodium Potassium Chloride Carbon Dioxide Anion Gap BUN Creatinine Estimated GFR BUN/Creatinine Ratio Glucose Calcium Magnesium Total Bilirubin AST ALT Alkaline Phosphatase Troponin T < 0.010 < 0.010 NT-Pro-B Natriuret Pep Total Protein Albumin Albumin/Globulin Ratio HCG, Qual 05/26/17 08:12 WBC RBC Hgb Hct MCV MCH MCHC RDW Plt Count Lymph % (Auto) [place] % (Auto) Eos % (Auto) Baso % (Auto) Lymph # [place] # Eos # Baso # Seg Neutrophils % Seg Neutrophils # Percent Retic D-Dimer Sodium Potassium Chloride Carbon Dioxide Anion Gap BUN Creatinine Estimated GFR BUN/Creatinine Ratio Glucose Calcium Magnesium 1.90 Total Bilirubin 0.70 AST 13 ALT 6 L Alkaline Phosphatase 85 Troponin T NT-Pro-B Natriuret Pep 56.21 Total Protein 8.0 Albumin 4.1 Albumin/Globulin Ratio 1.1 HCG, Qual - EKG Data -: EKG Interpreted by Me - EKG Data Interpretation: other (2 serial EKGs were reviewed 1 from last night at about 2 AM that suggests the possibility of flutter with possibly 3-1 block versus motion artifact. ) - Radiology Data interpreted by me: Chest x-ray no acute process. Critical care attestation.: If time is entered above; I have spent that time in minutes in the direct care of this critically ill patient, excluding procedure time. ED Disposition Clinical Impression: Sickle-cell disease with pain Chest pain Qualifiers: Chest pain type: unspecified Qualified Code(s): R07.9 - Chest pain, unspecified Disposition: OP ADMIT IP TO THIS HOSP Is pt being admited?: Yes Does the pt Need Aspirin: Yes Condition: Stable Instructions: Chest Pain (ED) Referrals: PRIMARY CARE, [Primary Care Provider] - 3-5 Days Time of Disposition: 08:53
[2017-05-26] MEDS ORDERED: ASPIRIN PO ONE (07:54)
[2017-05-26] MEDS ORDERED: DILAUDID IV ONE (07:54)
[2017-05-26] MEDS ORDERED: ZOFRAN IV ONE (08:09)
--- NOTE | 2017-05-26 08:41 | History and Physical Report ---
History of Present Illness Date of examination: 05/26/17 Chief complaint: Chest pain History of present illness: 46 year old -[place] female with past medical history significant for sickle cell disease, RCCA status post left nephrectomy, hypothyroidism status post thyroidectomy, A. fib presented to the emergency department complaining of chest pain. Midsternal chest pain, sharp, on and off, 8 out of 10 in intensity , worsened was ambulation. She denied diaphoresis, palpitation, fever, chills but admitted for occasional dry cough & SOB. She is also complaining joint pain , back pain, lower extremity pain. Patient has been admitted for sickle cell pain crisis previously. Patient didn't have a primary care physician. REVIEW OF SYSTEMS: GENERAL: no weight change, no fatigue, no fever HEAD: no head ache EYES: no blurry vision, no acute visual loss EARS: no hearing loss, no discharge, no earache NOSE: no stuffiness, no sneezing, no discharge MOUTH, THROAT AND NECK: no bleeding gums, no sore throat, no swollen neck CARDIAC: As stated in HPI. RESPIRATORY: no shortness of breath, no wheeze, + cough, no sputum, no hemoptysis, no asthma GI: no decreased appetite, no nausea, no vomiting, no dysphagia, no diarrhea, no constipation, no abdominal pain URINARY: no change in frequency, no urgency, no polyuria, no hematuria, no incontinence MUSCULOSKELETAL: no muscle weakness, no pain, no joint stiffness NEUROLOGIC: no loss of sensation/numbness, no tingling, no tremors, no weakness/ paralysis HEMATOLOGIC: no anemia, no easy bruising SKIN: no rashes ENDOCRINE: no heat/cold intolerance, no polyuria, no polydipsia, + thyroid problems, no diabetes PSYCHIATRIC: no anxiety, no depression, no suicidal ideations Past History Past Medical History: atrial fib, hyperthyroidism, other (Sickle cell disease) Past Surgical History: thyroidectomy, Other (Left kidney nephrectomy) Social history: full code. denies: smoking, alcohol abuse, prescription drug abuse, IV drug use Family history: no significant family history Medications and Allergies Allergies Allergy/AdvReac Type Severity Reaction Status Date / Time NSAIDS (Non-Steroidal AdvReac Unknown Verified 12/17/16 09:15 Anti-Inflamma promethazine HCl AdvReac Unknown Verified 12/17/16 09:14 [From Phenergan] tramadol AdvReac Unknown Verified 12/17/16 09:14 Home Medications Medication Instructions Recorded Confirmed Last Taken Type Folic Acid 20 mg PO QDAY 12/22/16 05/26/17 Unknown History Levothyroxine [Synthroid] 125 mcg PO QAM 05/26/17 05/26/17 Unknown History Active Meds: Active Medications Dextrose/Sodium Chloride (D5ns 0.2%) 1,000 mls @ 250 mls/hr IV DIRECT RYANNE Exam - Physical Exam Narrative exam: Not in cardiopulmonary distress. The patient appeared well nourished and normally developed. Vital signs as documented. Head exam is unremarkable. No scleral icterus . Neck is without jugular venous distension, thyromegaly, or carotid bruits. Lungs are clear to auscultation. Cardiac exam reveals regular rate and Rhythm. First and second heart sounds normal. No murmurs, rubs or gallops. Abdominal exam reveals normal bowel sounds, no masses, no organomegaly and no aortic enlargement. Extremities are nonedematous and both femoral and pedal pulses are normal. 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 No focal weakness. - Constitutional Vitals: Temp Pulse Resp BP Pulse Ox 98 F 76 13 129/81 100 05/26/17 03:59 05/26/17 07:00 05/26/17 07:00 05/26/17 07:00 05/26/17 07:00 Results - Labs CBC & Chem 7: 05/26/17 09:12 05/26/17 09:12 Labs: Laboratory Last Values WBC 7.7 K/mm3 (4.5-11.0) 05/26/17 02:20 RBC 3.67 M/mm3 (3.65-5.03) 05/26/17 02:20 Hgb 8.0 gm/dl (10.1-14.3) L 05/26/17 02:20 Hct 24.8 % (30.3-42.9) L 05/26/17 02:20 MCV 68 fl (79-97) L 05/26/17 02:20 MCH 22 pg (28-32) L 05/26/17 02:20 MCHC 32 % (30-34) 05/26/17 02:20 RDW 19.6 % (13.2-15.2) H 05/26/17 02:20 Plt Count 217 K/mm3 (140-440) 05/26/17 02:20 Lymph % (Auto) 24.1 % (13.4-35.0) 05/26/17 02:20 [place] % (Auto) 6.8 % (0.0-7.3) 05/26/17 02:20 Eos % (Auto) 1.6 % (0.0-4.3) 05/26/17 02:20 Baso % (Auto) 0.6 % (0.0-1.8) 05/26/17 02:20 Lymph # 1.9 K/mm3 (1.2-5.4) 05/26/17 02:20 [place] # 0.5 K/mm3 (0.0-0.8) 05/26/17 02:20 Eos # 0.1 K/mm3 (0.0-0.4) 05/26/17 02:20 Baso # 0.0 K/mm3 (0.0-0.1) 05/26/17 02:20 Seg Neutrophils % 66.9 % (40.0-70.0) 05/26/17 02:20 Seg Neutrophils # 5.2 K/mm3 (1.8-7.7) 05/26/17 02:20 Percent Retic 1.94 % (0.78-2.58) 05/26/17 02:20 D-Dimer < 135 ng/mlDDU (0-234) 05/26/17 05:13 Sodium 138 mmol/L (137-145) 05/26/17 02:20 Potassium 3.6 mmol/L (3.6-5.0) 05/26/17 02:20 Chloride 103.0 mmol/L (98-107) 05/26/17 02:20 Carbon Dioxide 20 mmol/L (22-30) L 05/26/17 02:20 Anion Gap 19 mmol/L 05/26/17 02:20 BUN 16 mg/dL (7-17) 05/26/17 02:20 Creatinine 1.1 mg/dL (0.7-1.2) 05/26/17 02:20 Estimated GFR > 60 ml/min 05/26/17 02:20 BUN/Creatinine Ratio 15 % 05/26/17 02:20 Glucose 97 mg/dL (65-100) 05/26/17 02:20 Calcium 9.3 mg/dL (8.4-10.2) 05/26/17 02:20 Troponin T < 0.010 ng/mL (0.00-0.029) 05/26/17 05:13 HCG, Qual Negative (Negative) 05/26/17 03:59 Assessment and Plan Assessment and plan: Sickle cell pain crisis Chest pain Atrial flutter Hypothyroidism Morbid obesity - Pain control, - Serial EKG and cardiac enzymes, stress test, cardiology consult - EKG shows atrial flutter - Resume appropriate home medications - Counseled about weight loss DVT prophylaxis - Heparin Disposition admit to telemetry Advance Directives: Yes VTE prophylaxis?: Chemical Plan of care discussed with patient/family: Yes
[2017-05-26 08:45] LABS: Alanine Aminotransferase 6 units/L (7-56); Albumin 4.1 g/dL (3.9-5); Albumin/Globulin Ratio 1.1 %; Alkaline Phosphatase 85 units/L (35-129)
[2017-05-26 08:50] LABS: Partial Thromboplastin Time 34.4 Sec. (24.2-36.6)
[2017-05-26 08:52] LABS: Bilirubin,Direct < 0.2 mg/dL (0-0.2); Bilirubin,Indirect 0.5 mg/dL
[2017-05-26] MEDS ORDERED: MORPHINE IV PRN (09:02)
[2017-05-26] MEDS ORDERED: SODIUM CHLORIDE FLUSH SYRINGE 10 ML IV PRN (09:02)
[2017-05-26 09:19] LABS: Basophils % (Auto) 0.9 % (0.0-1.8); Eosinophils % (Auto) 1.9 % (0.0-4.3); Hematocrit 22.8 % (30.3-42.9); Hemoglobin 7.4 gm/dl (10.1-14.3); Mean Corpuscular HGB Conc 33 % (30-34); Platelet Count 208 K/mm3 (140-440); Red Cell Distribution Width 19.5 % (13.2-15.2); White Blood Count 7.1 K/mm3 (4.5-11.0)
[2017-05-26 09:21] LABS: Mean Corpuscular Hemoglobin 22 pg (28-32); Mean Corpuscular Volume 67 fl (79-97)
[2017-05-26 09:41] LABS: Anion Gap 19 mmol/L; BUN/Creatinine Ratio 13; Blood Urea Nitrogen 14 mg/dL (7-17); Calcium 8.9 mg/dL (8.4-10.2); Carbon Dioxide 19 mmol/L (22-30); Chloride 103.6 mmol/L (98-107); Glucose 88 mg/dL (65-100); Potassium 3.6 mmol/L (3.6-5.0); Sodium 138 mmol/L (137-145)
[2017-05-26] MEDS ORDERED: LEXISCAN IV ONE ×2 (09:49→09:53)
[2017-05-26] MEDS: MORPHINE IV PRN ×3 (12:38→23:02)
[2017-05-26] MEDS: ZOFRAN IV PRN ×2 (12:39→23:02)
--- NOTE | 2017-05-26 14:54 | Consultation ---
History of Present Illness Consult date: 05/26/17 Requesting physician: JAKE BERGMAN Consult reason: chest pain History of present illness: The patient was seen after she underwent a pharmacologic stress test with nuclear imaging this morning. She claims that she has been experiencing recurrent substernal chest tightness associated with shortness of breath for 1 week. Symptoms are worse with exertion. Her nuclear scan showed mostly fixed defect with no significant ischemia. Past History Past Medical History: atrial fib (paroxysmal), cancer (renal cell cancer), hypothyroidism, other (sickle cell disease) Past Surgical History: Other (Left kidney nephrectomy secondary to renal cell cancer) Social history: alcohol abuse, full code. denies: smoking Family history: denies: CAD Medications and Allergies Allergies Allergy/AdvReac Type Severity Reaction Status Date / Time NSAIDS (Non-Steroidal AdvReac Unknown Verified 12/17/16 09:15 Anti-Inflamma promethazine HCl AdvReac Unknown Verified 12/17/16 09:14 [From Phenergan] tramadol AdvReac Unknown Verified 12/17/16 09:14 Home Medications Medication Instructions Recorded Confirmed Last Taken Type Folic Acid 20 mg PO QDAY 12/22/16 05/26/17 Unknown History Levothyroxine [Synthroid] 125 mcg PO QAM 05/26/17 05/26/17 Unknown History Active Meds: Active Medications Aspirin (Baby Aspirin) 81 mg PO QDAY RYANNE Atorvastatin Calcium (Lipitor) 20 mg PO QHS RYANNE Famotidine (Pepcid) 20 mg PO BID RYANNE Heparin Sodium (Porcine) (Heparin) 5,000 unit SUB-Q Q8HR RYANNE Dextrose/Sodium Chloride (D5ns 0.2%) 1,000 mls @ 250 mls/hr IV DIRECT RYANNE Morphine Sulfate (Morphine) 2 mg IV Q4H PRN PRN Reason: Chest Pain Last Admin: 05/26/17 12:38 Dose: 2 mg Ondansetron HCl (Zofran) 4 mg IV Q6H PRN PRN Reason: Nausea And Vomiting Last Admin: 05/26/17 12:39 Dose: 4 mg Sodium Chloride (Sodium Chloride Flush Syringe 10 Ml) 10 ml IV PRN PRN PRN Reason: LINE FLUSH Review of Systems Constitutional: no fever, no chills Ears, nose, mouth and throat: no ear pain, no ear discharge, no sore throat Cardiovascular: chest pain, palpitations, shortness of breath, no orthopnea, no edema, no lightheadedness Respiratory: shortness of breath, no cough, no hemoptysis Gastrointestinal: no abdominal pain, no nausea, no vomiting, no diarrhea, no constipation Genitourinary Female: no dysuria, no urinary frequency Rectal: no pain, no bleeding Musculoskeletal: no neck stiffness, no neck pain, no myalgias Integumentary: no rash, no pruritis Neurological: no weakness, no parathesias, no headaches Endocrine: no cold intolerance, no heat intolerance Hematologic/Lymphatic: no easy bruising, no easy bleeding Allergic/Immunologic: no urticaria, no wheezing Physical Examination Vital Signs Temp Pulse BP Pulse Ox 98.1 F 82 142/94 100 05/26/17 02:11 05/26/17 02:11 05/26/17 02:11 05/26/17 02:11 General appearance: no acute distress HEENT: Positive: EOMI, Normocephaly, Mucus Membranes Moist Neck: Positive: neck supple, trachea midline Cardiac: Positive: Reg Rate and Rhythm, Regular Rate, S1/S2 Lungs: Positive: clear to auscultation Neuro: Positive: Grossly Intact Abdomen: Positive: Soft, Active Bowel Sounds. Negative: Tender Skin: Positive: Clear. Negative: Rash Musculoskeletal: Normal Range of Motion Extremities: Present: normal. Absent: edema Results 05/26/17 09:12 05/26/17 09:12 Cardiac Enzymes 05/26/17 Range/Units 08:12 AST 13 (5-40) units/L Coagulation 05/26/17 Range/Units 08:12 PT 13.7 (12.2-14.9) Sec. INR 1.00 (0.87-1.13) APTT 34.4 (24.2-36.6) Sec. CBC 05/26/17 05/26/17 Range/Units 02:20 09:12 WBC 7.7 7.1 (4.5-11.0) K/mm3 RBC 3.67 3.40 L (3.65-5.03) M/mm3 Hgb 8.0 L 7.4 L (10.1-14.3) gm/dl Hct 24.8 L 22.8 L (30.3-42.9) % Plt Count 217 208 (140-440) K/mm3 Lymph # 1.9 1.8 (1.2-5.4) K/mm3 [place] # 0.5 0.4 (0.0-0.8) K/mm3 Eos # 0.1 0.1 (0.0-0.4) K/mm3 Baso # 0.0 0.1 (0.0-0.1) K/mm3 Comprehensive Metabolic Panel 05/26/17 05/26/17 05/26/17 Range/Units 02:20 08:12 09:12 Sodium 138 138 (137-145) mmol/L Potassium 3.6 3.6 (3.6-5.0) mmol/L Chloride 103.0 103.6 (98-107) mmol/L Carbon Dioxide 20 L 19 L (22-30) mmol/L BUN 16 14 (7-17) mg/dL Creatinine 1.1 1.1 (0.7-1.2) mg/dL Glucose 97 88 (65-100) mg/dL Calcium 9.3 8.9 (8.4-10.2) mg/dL Direct Bilirubin < 0.2 (0-0.2) mg/dL Indirect Bilirubin 0.5 mg/dL AST 13 (5-40) units/L ALT 6 L (7-56) units/L Alkaline Phosphatase 85 (35-129) units/L Total Protein 8.0 (6.3-8.2) g/dL Albumin 4.1 (3.9-5) g/dL - Imaging and Cardiology EKG: image reviewed EKG interpretations - Telemetry EKG Rhythm: Sinus Bradycardia Assessment and Plan Add oral nitrates. - Patient Problems (1) Chest pain Current Visit: Yes Status: Acute Qualifiers: Chest pain type: unspecified Qualified Code(s): R07.9 - Chest pain, unspecified (2) Sickle cell anemia with crisis Current Visit: Yes Status: Acute (3) History of unilateral nephrectomy Current Visit: Yes Status: Acute
[2017-05-26] MEDS: PEPCID PO SCH ×2 (18:57→21:15)
[2017-05-26] MEDS: IMDUR PO SCH (18:57)
[2017-05-26] MEDS: HEPARIN SUB-Q SCH (21:15)
--- NOTE | 2017-05-26 22:56 | Treadmill Report ---
REASON FOR STUDY: Chest pain. STRESS TEST PROTOCOL: The patient received 0.4 of Lexiscan intravenously over 10 seconds. Technetium-99m tetrofosmin was subsequently injected. Baseline EKG, sinus bradycardia. Lexiscan EKG, no diagnostic ischemic changes. No chest pain. No arrhythmias. IMPRESSION: Electrocardiographically negative stress test. Nuclear imaging report to follow. JOB# [id number] CONSTANTIN/KAVIN
[2017-05-27] MEDS: ZOFRAN IV PRN (06:16)
[2017-05-27] MEDS: MORPHINE IV PRN ×3 (06:16→20:11)
[2017-05-27] MEDS: HEPARIN SUB-Q SCH ×3 (06:17→21:16)
--- NOTE | 2017-05-27 07:28 | Treadmill Report ---
THALLIUM REPORT REASON FOR STUDY: Chest pain. IMAGING PROTOCOL: The patient received 10 mCi of Tc-99m Tetrofosmin for rest imaging, and 28 mCi of Tc-99m Tetrofosmin for stress imaging. Imaging for all procedures was completed 30-90 minutes following the initial injection of Technetium 99m Tetrofosmin. SPECT imaging in the 180 degree arc was performed in the right anterior oblique projection. Computerized reconstruction of the images was performed for analysis. NUCLEAR IMAGING RESULTS: Normal left ventricular cavity size with no change from stress to rest. Distribution of radionuclide within the left ventricle revealed a medium size area of photo-induction involving the inferior and inferoapical region. The degree of photo-induction is moderate. Rest imaging does not show any significant improvement in this defect. Gated SPECT imaging revealed normal global LV systolic function with no significant wall motion abnormalities. The calculated left ventricular ejection fraction is 66%. IMPRESSION: Medium-size fixed inferior and inferoapical defect. Normal global LV systolic function with no significant wall motion abnormalities. EF 66%. These findings suggest prior infarction in the right coronary artery territory. However, in the absence of significant wall motion abnormalities, the defect noted in this patient may be artifactual. No evidence of significant stress-induced ischemia. JOB# [id number] CONSTANTIN/KAVIN HAMILTON
[2017-05-27 09:25] LABS: Basophils % (Auto) 0.9 % (0.0-1.8); Eosinophils % (Auto) 2.4 % (0.0-4.3); Hematocrit 22.4 % (30.3-42.9); Hemoglobin 7.2 gm/dl (10.1-14.3); Mean Corpuscular HGB Conc 32 % (30-34); Platelet Count 199 K/mm3 (140-440); Red Blood Count 3.37 M/mm3 (3.65-5.03); Red Cell Distribution Width 19.8 % (13.2-15.2); White Blood Count 6.6 K/mm3 (4.5-11.0)
[2017-05-27 09:31] LABS: Mean Corpuscular Volume 67 fl (79-97)
[2017-05-27 09:32] LABS: Mean Corpuscular Hemoglobin 21 pg (28-32)
[2017-05-27] MEDS ORDERED: NACL 0.9% 500 ML 500 ML IV ONE (09:49)
[2017-05-27] MEDS ORDERED: SYNTHROID PO SCH (10:00)
[2017-05-27] MEDS ORDERED: NACL 0.9% 1000 ML 1,000 ML IV SCH (10:00)
[2017-05-27] MEDS ORDERED: FOLIC ACID 20 MG PO SCH (10:00)
[2017-05-27] MEDS: PEPCID PO SCH ×2 (10:57→21:16)
[2017-05-27] MEDS: BABY ASPIRIN PO SCH (10:57)
[2017-05-27] MEDS: FOLVITE PO SCH (10:57)
[2017-05-27] MEDS: IMDUR PO SCH (10:58)
--- NOTE | 2017-05-27 13:45 | Progress Note ---
Assessment and Plan Assessment and plan: Sickle cell pain crisis Chest pain Atrial flutter Hypothyroidism Morbid obesity - Pain control, - Serial cardiac enzymes normal, stress test was negative, cardiology consult appreciated - EKG shows atrial flutter - Hemoglobin is trending down given her patient's low blood pressure and chest pain, patient needs transfusion of 1 unit of blood - TSH is very high, patient has been out of her medication for the last 2 weeks and restarted as inpatient - Resume appropriate home medications - Counseled about weight loss DVT prophylaxis - Heparin Disposition admit to telemetry History Interval history: Patient to seen and evaluated this morning, Chest pain is getting better. Hospitalist Physical - Physical exam Narrative exam: Not in cardiopulmonary distress. The patient appeared well nourished and normally developed. Vital signs as documented. Head exam is unremarkable. No scleral icterus . Neck is without jugular venous distension, thyromegaly, or carotid bruits. Lungs are clear to auscultation. Cardiac exam reveals regular rate and Rhythm. First and second heart sounds normal. No murmurs, rubs or gallops. Abdominal exam reveals normal bowel sounds, no masses, no organomegaly and no aortic enlargement. Extremities are nonedematous and both femoral and pedal pulses are normal. RN TRIAGE: Alert and oriented 3. No focal weakness. - Constitutional Vitals: Temp Pulse Resp BP Pulse Ox 98.3 F 63 20 111/69 95 05/27/17 09:40 05/27/17 10:58 05/27/17 09:40 05/27/17 10:58 05/27/17 09:40 General appearance: Present: no acute distress Results - Labs CBC & Chem 7: 05/27/17 09:09 05/26/17 09:12 Labs: Laboratory Last Values WBC 6.6 K/mm3 (4.5-11.0) 05/27/17 09:09 RBC 3.37 M/mm3 (3.65-5.03) L 05/27/17 09:09 Hgb 7.2 gm/dl (10.1-14.3) L 05/27/17 09:09 Hct 22.4 % (30.3-42.9) L 05/27/17 09:09 MCV 67 fl (79-97) L 05/27/17 09:09 MCH 21 pg (28-32) L 05/27/17 09:09 MCHC 32 % (30-34) 05/27/17 09:09 RDW 19.8 % (13.2-15.2) H 05/27/17 09:09 Plt Count 199 K/mm3 (140-440) 05/27/17 09:09 Lymph % (Auto) 25.0 % (13.4-35.0) 05/27/17 09:09 [place] % (Auto) 6.1 % (0.0-7.3) 05/27/17 09:09 Eos % (Auto) 2.4 % (0.0-4.3) 05/27/17 09:09 Baso % (Auto) 0.9 % (0.0-1.8) 05/27/17 09:09 Lymph # 1.7 K/mm3 (1.2-5.4) 05/27/17 09:09 [place] # 0.4 K/mm3 (0.0-0.8) 05/27/17 09:09 Eos # 0.2 K/mm3 (0.0-0.4) 05/27/17 09:09 Baso # 0.1 K/mm3 (0.0-0.1) 05/27/17 09:09 Seg Neutrophils % 65.6 % (40.0-70.0) 05/27/17 09:09 Seg Neutrophils # 4.4 K/mm3 (1.8-7.7) 05/27/17 09:09 Percent Retic 1.94 % (0.78-2.58) 05/26/17 02:20 PT 13.7 Sec. (12.2-14.9) 05/26/17 08:12 INR 1.00 (0.87-1.13) 05/26/17 08:12 APTT 34.4 Sec. (24.2-36.6) 05/26/17 08:12 D-Dimer < 135 ng/mlDDU (0-234) 05/26/17 05:13 Sodium 138 mmol/L (137-145) 05/26/17 09:12 Potassium 3.6 mmol/L (3.6-5.0) 05/26/17 09:12 Chloride 103.6 mmol/L (98-107) 05/26/17 09:12 Carbon Dioxide 19 mmol/L (22-30) L 05/26/17 09:12 Anion Gap 19 mmol/L 05/26/17 09:12 BUN 14 mg/dL (7-17) 05/26/17 09:12 Creatinine 1.1 mg/dL (0.7-1.2) 05/26/17 09:12 Estimated GFR > 60 ml/min 05/26/17 09:12 BUN/Creatinine Ratio 13 % 05/26/17 09:12 Glucose 88 mg/dL (65-100) 05/26/17 09:12 Calcium 8.9 mg/dL (8.4-10.2) 05/26/17 09:12 Magnesium 1.90 mg/dL (1.7-2.3) 05/26/17 08:12 Total Bilirubin 0.70 mg/dL (0.1-1.2) 05/26/17 08:12 Direct Bilirubin < 0.2 mg/dL (0-0.2) 05/26/17 08:12 Indirect Bilirubin 0.5 mg/dL 05/26/17 08:12 AST 13 units/L (5-40) 05/26/17 08:12 ALT 6 units/L (7-56) L 05/26/17 08:12 Alkaline Phosphatase 85 units/L (35-129) 05/26/17 08:12 Troponin T < 0.010 ng/mL (0.00-0.029) 05/26/17 13:50 NT-Pro-B Natriuret Pep 56.21 pg/mL (0-450) 05/26/17 08:12 Total Protein 8.0 g/dL (6.3-8.2) 05/26/17 08:12 Albumin 4.1 g/dL (3.9-5) 05/26/17 08:12 Albumin/Globulin Ratio 1.1 % 05/26/17 08:12 TSH 43.930 mlU/mL (0.270-4.200) H 05/26/17 09:01 Free T4 0.41 ng/dL (0.76-1.46) L 05/26/17 09:01 HCG, Qual Negative (Negative) 05/26/17 03:59 Blood Type O POSITIVE 05/27/17 10:25 Antibody Screen Negative 05/27/17 10:25 Crossmatch See Detail 05/27/17 10:25 Hemoglobin is trending down
--- NOTE | 2017-05-27 14:02 | Progress Note ---
Assessment and Plan We'll see her PRN. Thanks. - Patient Problems (1) Chest pain Current Visit: Yes Status: Acute Qualifiers: Chest pain type: unspecified Qualified Code(s): R07.9 - Chest pain, unspecified (2) Sickle cell anemia with crisis Current Visit: Yes Status: Acute (3) History of unilateral nephrectomy Current Visit: Yes Status: Acute Subjective Date of service: 05/27/17 Principal diagnosis: Chest Pain, Sickle cell anemia with pain crisis Interval history: She claims that her chest pain has improved. We discussed her negative stress test. Objective Vital Signs Temp Pulse Pulse Resp BP BP Pulse Ox 05/27/17 10:58 63 111/69 05/27/17 09:40 98.3 F 54 L 20 94/53 95 05/27/17 05:38 98.5 F 62 18 128/66 96 05/27/17 00:36 98.5 F 63 18 113/55 99 05/26/17 20:46 98.5 F 56 L 18 106/48 96 05/26/17 20:15 52 L 05/26/17 20:00 58 L 05/26/17 18:57 70 116/85 05/26/17 17:08 98.3 F 72 18 116/85 - Physical Examination General: No Apparent Distress HEENT: Positive: EOMI, Normocephaly, Mucus Membranes Moist Neck: Positive: neck supple, trachea midline Cardiac: Positive: Reg Rate and Rhythm Lungs: Positive: clear to auscultation Neuro: Positive: Grossly Intact Abdomen: Positive: Soft, Active Bowel Sounds. Negative: Tender Skin: Positive: Clear. Negative: Rash Musculoskeletal: Normal Range of Motion Extremities: Present: normal. Absent: edema - Labs and Meds CBC 05/27/17 Range/Units 09:09 WBC 6.6 (4.5-11.0) K/mm3 RBC 3.37 L (3.65-5.03) M/mm3 Hgb 7.2 L (10.1-14.3) gm/dl Hct 22.4 L (30.3-42.9) % Plt Count 199 (140-440) K/mm3 Lymph # 1.7 (1.2-5.4) K/mm3 [place] # 0.4 (0.0-0.8) K/mm3 Eos # 0.2 (0.0-0.4) K/mm3 Baso # 0.1 (0.0-0.1) K/mm3 - Imaging and Cardiology EKG: image reviewed Nuclear stress test: image reviewed
[2017-05-27] MEDS ORDERED: NACL 0.9% 500 ML 500 ML IV SCH (18:00)
[2017-05-28] MEDS: D5NS 0.2% 1,000 ML IV SCH ×3 (00:38→08:11)
[2017-05-28] MEDS: MORPHINE IV PRN ×4 (00:39→13:55)
[2017-05-28] MEDS: HEPARIN SUB-Q SCH (05:00)
[2017-05-28 06:51] LABS: Basophils % (Auto) 1.2 % (0.0-1.8); Eosinophils % (Auto) 2.9 % (0.0-4.3); Hematocrit 23.5 % (30.3-42.9); Hemoglobin 7.5 gm/dl (10.1-14.3); Mean Corpuscular HGB Conc 32 % (30-34); Mean Corpuscular Volume 70 fl (79-97); Platelet Count 173 K/mm3 (140-440); Red Blood Count 3.37 M/mm3 (3.65-5.03); White Blood Count 6.8 K/mm3 (4.5-11.0)
[2017-05-28 06:52] LABS: Mean Corpuscular Hemoglobin 22 pg (28-32); Red Cell Distribution Width 21.1 % (13.2-15.2)
[2017-05-28 07:08] LABS: Chloride 102.7 mmol/L (98-107); Potassium 3.5 mmol/L (3.6-5.0)
[2017-05-28] MEDS: IMDUR PO SCH (09:17)
[2017-05-28] MEDS: BABY ASPIRIN PO SCH (09:17)
[2017-05-28] MEDS: PEPCID PO SCH (09:18)
[2017-05-28] MEDS: FOLVITE PO SCH (09:18)
[2017-05-28] MEDS ORDERED: NACL 0.9% 500 ML 500 ML IV ONE (10:42)
--- NOTE | 2017-05-28 10:50 | Discharge Summary ---
Providers - Providers Date of Admission: 05/26/17 09:54 Date of discharge: 05/28/17 Attending physician: JAKE BERGMAN MD 05/26/17 Consult to Cardiac Rehabilitation [CONS] Routine Reason For Exam: Phase I 05/26/17 09:02 Consult to Cardiology [CONS] Routine Consulting Provider: LUIS MEZA Reason For Exam: chest pain, Atrial flutter Primary care physician: CIRCUIT MANAGER Hospitalization Reason for admission: sickle cell pain crisis, sickle cell anemia, chest pain Condition: Stable Pertinent studies: Cardiac stress test negative for acute ischemia Hospital course: 46 year old -Portuguese female with past medical history significant for sickle cell disease, RCCA status post left nephrectomy, hypothyroidism status post thyroidectomy, A. fib presented to the emergency department complaining of chest pain. Midsternal chest pain, sharp, on and off, 8 out of 10 in intensity , worsened was ambulation. She denied diaphoresis, palpitation, fever, chills but admitted for occasional dry cough & SOB. She is also complaining joint pain , back pain, lower extremity pain. Patient has been admitted for sickle cell pain crisis previously. Patient didn't have a primary care physician. The patient was admitted to the floor and managed for sickle cell pain crisis. For chest pain cardiac stress test was done and was negative, cardiology consulted and recommended no further cardiac workup. Patient's hemoglobin was low and given her chest pain, and tachycardia have transfused 2 units of blood. Patient TSH was high and was not taking her levothyroxine for a while and her levothyroxine was restarted and given a script to continue as an outpatient. I have also referred the patient to follow with Dr. Machuca and advised to have followup with her PCP. Patient was hemodynamically stable at the time of discharge. Patient's medications were reviewed and updated at the time of discharge. Patient is obese and counselled about weight loss. Disposition: - TO HOME OR SELFCARE Time spent for discharge: 31 minutes - Discharge Diagnoses (1) Chest pain Status: Acute Qualifiers: Chest pain type: unspecified Qualified Code(s): R07.9 - Chest pain, unspecified (2) History of unilateral nephrectomy Status: Acute (3) Sickle cell anemia with crisis Status: Acute (4) Sickle-cell disease with pain Status: Acute Core Measure Documentation - Palliative Care Palliative Care/ Comfort Measures: Not Applicable - Core Measures Any of the following diagnoses?: none Exam - Physical Exam Narrative exam: Not in cardiopulmonary distress. The patient is obese. Vital signs as documented. Head exam is unremarkable. No scleral icterus . Neck is without jugular venous distension, thyromegaly, or carotid bruits. Lungs are clear to auscultation. Cardiac exam reveals regular rate and Rhythm. First and second heart sounds normal. No murmurs, rubs or gallops. Abdominal exam reveals normal bowel sounds, no masses, no organomegaly and no aortic enlargement. Extremities are nonedematous and both femoral and pedal pulses are normal. 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 No focal weakness. - Constitutional Vitals: Temp Pulse Resp BP Pulse Ox 98.2 F 66 14 115/58 99 05/28/17 08:05 05/28/17 08:05 05/28/17 09:19 05/28/17 08:05 05/28/17 08:05 Plan Activity: no restrictions Weight Bearing Status: Full Weight Bearing Diet: low fat, low cholesterol Follow up with: PRIMARY CARE, [Primary Care Provider] - 3-5 Days HERBERT MACHUCA DO [Staff Physician] - 7 Days Prescriptions: Folic Acid 1 mg PO QDAY #30 capsule Levothyroxine [Synthroid] 125 mcg PO QAM #30 tablet Oxycodone HCl/Acetaminophen [Percocet 10/325 mg] 1 each PO Q6HR PRN #12 tablet PRN Reason: Pain
--- NOTE | 2017-05-28 12:23 | Query- Chest Pain ---
Deayanna Rodriguez Diana Date: 05/28/17 Health And Safety Consultant/CDS: Rohit Phone#:[phone] Exercise your independent professional judgment when responding to query. Questions asked do not imply a particular answer is desired or expected. We greatly appreciate your clarification on this issue. Clinical Documentation States: 46 year old female was admitted on 05/26/17 The discharge summary (Dr. Ortiz) states " Reason for admission: sickle cell pain crisis, sickle cell anemia, chest pain - Discharge Diagnoses (1) Chest pain (3) Sickle cell anemia with crisis (4) Sickle-cell disease with pain " The cardiology progress note (Dr. Her 05/27/17) states " - Patient Problems (1) Chest pain Principal diagnosis: Chest Pain, Sickle cell anemia with pain crisis Interval history: She claims that her chest pain has improved. We discussed her negative stress test. " Please document the etiology of Chest Pain: [ ] Myocardial Infarction [ ] Pneumonia [ ] Mediastinitis [x ] Costochondritis [ ] Pulmonary Embolism [ ] Coronary Artery Disease [ ] GERD [ ] Other: [ ] Comment/Explanation: Present on Admission: [ x] Yes (Y) [ ] Clinically undeterminable (W) [ ] No(N) Please document response in your Progress Notes and/or Discharge Summary and indicate if the condition was present on admission. ALFONSO
[2017-05-28 17:38] VITALS: BP 115/69
[2017-05-29] MEDS ORDERED: SYNTHROID PO SCH (06:00)
== END 2017-05-28 17:47 | disposition home or self-care (01) | DRG 205 ==
LOC: ED 01:43 → 4A 09:54
PROVIDERS: ADMIT Internal Medicine; ATTEND Internal Medicine
PROC: 30233N1 Transfusion of Nonautologous Red Blood Cells into Peripheral Vein, Percutaneous Approach (ICD-10-PCS; principal; 2017-05-27)
DX: M94.0 Chondrocostal junction syndrome [Tietze] (principal); D57.00 Hb-SS disease with crisis, unspecified; I48.92 Unspecified atrial flutter; E66.01 Morbid (severe) obesity due to excess calories; E89.0 Postprocedural hypothyroidism; I48.0 Paroxysmal atrial fibrillation; F10.10 Alcohol abuse, uncomplicated; M54.9 Dorsalgia, unspecified; M25.50 Pain in unspecified joint; Z88.8 Allergy status to other drugs, medicaments and biological substances; Z85.528 Personal history of other malignant neoplasm of kidney; Z90.5 Acquired absence of kidney; Z68.41 Body mass index [BMI] 40.0-44.9, adult; Z90.49 Acquired absence of other specified parts of digestive tract; Z79.899 Other long term (current) drug therapy; Z71.3 Dietary counseling and surveillance
CPT/HCPCS: 36415; 71010; 78452; 80048; 80074; 83735; 83880; 84439; 84443; 84484; 84703; 85025; 85045; 85379; 85610; 85660; 85730; 86850; 86900; 86901; 86920; 93005; 93010; 93017; 96374; 96375; A9270-GY; A9502; J1170; J1644; J2270; J2405; J2785; J7030; J7040; P9016

== ENCOUNTER 2017-09-08 01:47 | Emergency (ER) | payer MEDICAID ==
[2017-09-08] MEDS ORDERED: ASPIRIN PO ONE (02:44)
[2017-09-08 03:04] LABS: Basophils # (Auto) 0.1 K/mm3 (0.0-0.1); Basophils % (Auto) 0.8 % (0.0-1.8); Eosinophils # (Auto) 0.1 K/mm3 (0.0-0.4); Eosinophils % (Auto) 1.2 % (0.0-4.3); Hematocrit 26.1 % (30.3-42.9); Hemoglobin 8.7 gm/dl (10.1-14.3); Lymphocytes # (Auto) 1.6 K/mm3 (1.2-5.4); Lymphocytes % (Auto) 18.5 % (13.4-35.0); Mean Corpuscular HGB Conc 33 % (30-34); Mean Corpuscular Volume 73 fl (79-97); Monocytes # (Auto) 0.3 K/mm3 (0.0-0.8); Monocytes % (Auto) 3.8 % (0.0-7.3); Platelet Count 231 K/mm3 (140-440); Red Blood Count 3.59 M/mm3 (3.65-5.03)
[2017-09-08 03:19] LABS: Mean Corpuscular Hemoglobin 24 pg (28-32); Red Cell Distribution Width 22.3 % (13.2-15.2)
[2017-09-08 03:31] LABS: BUN/Creatinine Ratio 11; Blood Urea Nitrogen 12 mg/dL (7-17); Calcium 8.6 mg/dL (8.4-10.2); Hemolysis Index 0
--- NOTE | 2017-09-08 04:33 | XRay Report ---
FINAL REPORT PROCEDURE: XR CHEST ROUTINE 2V TECHNIQUE: PA and lateral chest radiographs were obtained. CPT 51959 HISTORY: cough, chest pain, sob COMPARISON: No prior studies are available for comparison. FINDINGS: Heart: Normal. Mediastinum/Vessels: Normal. Lungs/Pleural space: Normal. Bony thorax: No acute osseous abnormality. Other: IMPRESSION: Normal examination.
--- NOTE | 2017-09-08 06:27 | Emergency Department Report ---
ED General Adult HPI - General Chief complaint: Chest Pain Stated complaint: CHEST PAIN Time Seen by Provider: 09/08/17 05:58 Source: patient Mode of arrival: Ambulatory Limitations: No Limitations - History of Present Illness Initial comments: 46 yo has hx of Hgb SS disease who presents with sickle cell crisis. She has diffuse chest pain nonproductive cough. She denies fever. She has bilateral lower extremity pain. Gradual Onset of symptoms. Nondescript chest pain radiating to her left chest. Constant in nature. Bilateral diffuse lower extremity pain. No indication of injury. Patient takes Goody powder for pain [id number]. She is followed by [facility]. -: Gradual, days(s) (1) Location: chest, lower extremity Severity scale (0 -10): 9 Quality: aching Consistency: constant Improves with: none Worsens with: none Associated Symptoms: chest pain, cough. denies: confusion, diaphoresis, fever/ chills, headaches, loss of appetite, malaise, nausea/vomiting, rash, seizure, shortness of breath, syncope, weakness - Related Data Previous Rx's Medication Instructions Recorded Last Taken Type Folic Acid 1 mg PO QDAY #30 capsule 05/28/17 Unknown Rx Levothyroxine [Synthroid] 125 mcg PO QAM #30 tablet 05/28/17 Unknown Rx Oxycodone HCl/Acetaminophen 1 each PO Q6HR PRN #12 tablet 05/28/17 Unknown Rx [Percocet 10/325 mg] Oxycodone HCl/Acetaminophen 1 each PO Q4H PRN #20 tablet 09/08/17 Unknown Rx [Percocet 7.5/325 mg] Allergies Allergy/AdvReac Type Severity Reaction Status Date / Time NSAIDS (Non-Steroidal AdvReac Unknown Verified 12/17/16 09:15 Anti-Inflamma promethazine HCl AdvReac Unknown Verified 12/17/16 09:14 [From Phenergan] tramadol AdvReac Unknown Verified 12/17/16 09:14 ED Review of Systems ROS: Stated complaint: CHEST PAIN Other details as noted in HPI Comment: All other systems reviewed and negative Constitutional: denies: chills, fever, malaise Respiratory: cough Cardiovascular: chest pain ED Past Medical Hx - Past Medical History Previous Medical History?: Yes Hx Congestive Heart Failure: No Hx Diabetes: No Hx Sickle Cell Disease: Yes Hx Asthma: No Hx COPD: No Additional medical history: Renal cell carcinoma. A-Fib. Stage 2 kidney Disease - Surgical History Past Surgical History?: Yes Hx Cholecystectomy: Yes Additional Surgical History: Removal left kidney, Thyroidectomy. x3, left ovary removal - Social History Smoking Status: Never Smoker Substance Use Type: None - Medications Home Medications: Home Medications Medication Instructions Recorded Confirmed Last Taken Type Folic Acid 1 mg PO QDAY #30 capsule 05/28/17 Unknown Rx Levothyroxine [Synthroid] 125 mcg PO QAM #30 tablet 05/28/17 Unknown Rx Oxycodone HCl/Acetaminophen 1 each PO Q6HR PRN #12 tablet 05/28/17 Unknown Rx [Percocet 10/325 mg] Oxycodone HCl/Acetaminophen 1 each PO Q4H PRN #20 tablet 09/08/17 Unknown Rx [Percocet 7.5/325 mg] ED Physical Exam - General Limitations: No Limitations General appearance: alert, in no apparent distress - Head Head exam: Present: atraumatic, normocephalic - Eye Eye exam: Present: normal appearance - ENT ENT exam: Present: mucous membranes moist - Neck Neck exam: Present: normal inspection. Absent: tenderness, meningismus - Respiratory Respiratory exam: Present: normal lung sounds bilaterally. Absent: respiratory distress, wheezes, rales, rhonchi - Cardiovascular Cardiovascular Exam: Present: regular rate, normal rhythm, normal heart sounds. Absent: systolic murmur, diastolic murmur, rubs, gallop - GI/Abdominal GI/Abdominal exam: Present: soft, normal bowel sounds. Absent: distended, tenderness, guarding, rebound - Extremities Exam Extremities exam: Present: normal inspection - Back Exam Back exam: Present: normal inspection - Neurological Exam Neurological exam: Present: alert, oriented X3 - Psychiatric Psychiatric exam: Present: normal affect, normal mood - Skin Skin exam: Present: warm, dry, intact, normal color. Absent: rash ED Course Vital Signs 09/08/17 09/08/17 09/08/17 02:29 04:54 05:00 Temperature 98.6 F Pulse Rate 82 91 H Respiratory 18 Rate Blood Pressure 135/97 133/87 141/87 Blood Pressure [Left] O2 Sat by Pulse 99 99 96 Oximetry 09/08/17 09/08/17 09/08/17 05:02 05:30 06:00 Temperature Pulse Rate 78 80 Respiratory 18 28 H 20 Rate Blood Pressure 134/74 121/79 Blood Pressure [Left] O2 Sat by Pulse 99 99 98 Oximetry 09/08/17 09/08/17 09/08/17 06:30 07:00 08:59 Temperature Pulse Rate 71 79 84 Respiratory 14 21 18 Rate Blood Pressure 131/76 138/68 Blood Pressure 116/77 [Left] O2 Sat by Pulse 98 98 100 Oximetry 09/08/17 12:20 Temperature Pulse Rate 88 Respiratory 18 Rate Blood Pressure Blood Pressure 114/78 [Left] O2 Sat by Pulse 100 Oximetry ED Medical Decision Making - Lab Data Result diagrams: 09/08/17 02:54 09/08/17 02:54 Vital Signs - 24 hr 09/08/17 09/08/17 09/08/17 02:29 04:54 05:00 Temperature 98.6 F Pulse Rate 82 91 H Respiratory 18 Rate Blood Pressure 135/97 133/87 141/87 O2 Sat by Pulse 99 99 96 Oximetry 09/08/17 05:02 Temperature Pulse Rate Respiratory 18 Rate Blood Pressure O2 Sat by Pulse 99 Oximetry - EKG Data 09/08/17 06:28 EKG obtained that 202 Normal sinus rhythm rate of 70 bpm normal axis prolonged QT interval anterior Q waves no ST elevation poor R-wave progression in anterior leads - Medical Decision Making Mrs. Vo presents with sickle cell disease crisis. No indication of acute chest syndrome. No fever no hypoxia nondescript mild chest pain. Patient appears well. She appears comfortable. She does not appear toxic. Chest pain atypical for ACS. Patient had recent nuclear stress tests myocardial perfusion scan May 2017 3 months ago. No evidence of reversible ischemia. Aspirin order canceled. ASA not indicated. Mrs. Gerson botello's pain improved with medication provided in the ED. She desired discharge home. She states that she desires to avoid hospitalization. I prescribed Percocet 7.5 mg tablets according to her request. Critical care attestation.: If time is entered above; I have spent that time in minutes in the direct care of this critically ill patient, excluding procedure time. ED Disposition Clinical Impression: Sickle cell anemia with crisis, Chest pain Disposition: - TO HOME OR SELFCARE Is pt being admited?: No Does the pt Need Aspirin: No Condition: Stable Instructions: Sickle Cell Crisis (ED) Prescriptions: Oxycodone HCl/Acetaminophen [Percocet 7.5/325 mg] 1 each PO Q4H PRN #20 tablet PRN Reason: Pain
[2017-09-08] MEDS ORDERED: DILAUDID IV ONE ×3 (06:33→08:52)
[2017-09-08] MEDS ORDERED: ZOFRAN IV ONE (07:40)
[2017-09-08] MEDS ORDERED: BENADRYL IV ONE (10:46)
[2017-09-08] MEDS ORDERED: PERCOCET 5/325 PO ONE (10:47)
[2017-09-08 12:20] VITALS: BP 114/78
== END 2017-09-08 13:11 | disposition home or self-care (01) ==
LOC: ED 01:47
DX: D57.00 Hb-SS disease with crisis, unspecified (principal); N18.2 Chronic kidney disease, stage 2 (mild); R05 Cough; I48.91 Unspecified atrial fibrillation; E89.0 Postprocedural hypothyroidism; Z90.89 Acquired absence of other organs; Z90.721 Acquired absence of ovaries, unilateral; Z90.5 Acquired absence of kidney; Z90.49 Acquired absence of other specified parts of digestive tract; Z88.6 Allergy status to analgesic agent; Z88.8 Allergy status to other drugs, medicaments and biological substances
CPT/HCPCS: 36415; 71046; 80048; 84484; 84703; 85025; 93005; 93010; 96374; 96375; 96376; 99284; J1170; J1200; J2405

== ENCOUNTER 2018-02-05 02:29 | Emergency (ER) | payer MEDICAID, OTHER ==
[2018-02-05] MEDS ORDERED: ASPIRIN PO ONE (04:25)
[2018-02-05 04:45] LABS: Basophils # (Auto) 0.1 K/mm3 (0.0-0.1); Basophils % (Auto) 1.9 % (0.0-1.8); Eosinophils # (Auto) 0.2 K/mm3 (0.0-0.4); Eosinophils % (Auto) 2.9 % (0.0-4.3); Hematocrit 23.1 % (30.3-42.9); Hemoglobin 7.5 gm/dl (10.1-14.3); Lymphocytes # (Auto) 1.7 K/mm3 (1.2-5.4); Lymphocytes % (Auto) 23.5 % (13.4-35.0); Mean Corpuscular HGB Conc 32 % (30-34); Monocytes # (Auto) 0.3 K/mm3 (0.0-0.8); Monocytes % (Auto) 4.4 % (0.0-7.3); Platelet Count 222 K/mm3 (140-440); Red Blood Count 3.52 M/mm3 (3.65-5.03); Red Cell Distribution Width 19.9 % (13.2-15.2)
[2018-02-05 04:49] LABS: Mean Corpuscular Hemoglobin 21 pg (28-32); Mean Corpuscular Volume 66 fl (79-97)
[2018-02-05] MEDS ORDERED: D5NS 0.2% 1,000 ML IV SCH (05:00)
[2018-02-05 05:02] LABS: BUN/Creatinine Ratio 9; Blood Urea Nitrogen 12 mg/dL (7-17); Calcium 8.9 mg/dL (8.4-10.2); Hemolysis Index 11
[2018-02-05] MEDS ORDERED: TYLENOL PO ONE (07:03)
[2018-02-05] MEDS ORDERED: DILAUDID IM ONE (07:03)
--- NOTE | 2018-02-05 07:05 | Emergency Department Report ---
ED General Adult HPI - General Chief complaint: Chest Pain Stated complaint: CHEST PAIN,SOB,SICKLE CELL Time Seen by Provider: 02/05/18 06:53 Source: patient, RN notes reviewed, old records reviewed Mode of arrival: Ambulatory Limitations: No Limitations - History of Present Illness Initial comments: This is a 47-year-old female who is not known to this provider previously. Past medical history includes sickle cell disease, history of left nephrectomy, hypothyroidism, paroxysmal A. fib, not currently on anticoagulation, had a nuclear stress test performed at this hospital May 2017, which demonstrated a normal global LV systolic function, no wall motion abnormalities , no evidence of stress-induced ischemia. Patient presents to the ER with a complaint of swelling in her bilateral wrists and her bilateral feet which has been going on for the past couple days, she reports that this feels similar to prior episodes of sickle cell crisis, she also complains of lower back pain, frontal sinus headache, and chest wall pain. The chest wall pain has been present since Sunday, 3-4 days, is intermittent , and does not radiate to the back, arms or neck. There is no vomiting, there is no diaphoresis. The patient denies DVT, pulmonary emesis factors, recent aspirin ingestion, recent cocaine ingestion. She also endorses dysuria. She also endorses bilateral hip pain. -: Gradual Location: head, chest, back, left, right, upper extremity, lower extremity Radiation: non-radiation Quality: aching Consistency: intermittent Improves with: none Worsens with: none Associated Symptoms: chest pain, loss of appetite, malaise, shortness of breath. denies: confusion, cough, diaphoresis, fever/chills, headaches, nausea/ vomiting, rash, seizure, syncope, weakness - Related Data Previous Rx's Medication Instructions Recorded Last Taken Type Oxycodone HCl/Acetaminophen 1 each PO Q6HR PRN #12 tablet 05/28/17 Unknown Rx [Percocet 10/325 mg] Folic Acid 1 mg PO QDAY #30 capsule 02/05/18 Unknown Rx Furosemide [Lasix] 20 mg PO QDAY #14 tablet 02/05/18 Unknown Rx Levothyroxine [Synthroid] 125 mcg PO QAM #30 tablet 02/05/18 Unknown Rx Oxycodone HCl/Acetaminophen 1 each PO Q4H PRN #10 tablet 02/05/18 Unknown Rx [Percocet 7.5/325 mg] Allergies Allergy/AdvReac Type Severity Reaction Status Date / Time NSAIDS (Non-Steroidal AdvReac Unknown Verified 12/17/16 09:15 Anti-Inflamma promethazine HCl AdvReac Unknown Verified 12/17/16 09:14 [From Phenergan] tramadol AdvReac Unknown Verified 12/17/16 09:14 ED Review of Systems ROS: Stated complaint: CHEST PAIN,SOB,SICKLE CELL Other details as noted in HPI Comment: All other systems reviewed and negative ED Past Medical Hx - Past Medical History Hx Congestive Heart Failure: No Hx Diabetes: No Hx Sickle Cell Disease: Yes Hx Asthma: No Hx COPD: No Additional medical history: Renal cell carcinoma. A-Fib. Stage 2 kidney Disease - Surgical History Hx Cholecystectomy: Yes Additional Surgical History: Removal left kidney, Thyroidectomy. x3, left ovary removal - Social History Smoking Status: Never Smoker Substance Use Type: Alcohol - Medications Home Medications: Home Medications Medication Instructions Recorded Confirmed Last Taken Type Oxycodone HCl/Acetaminophen 1 each PO Q6HR PRN #12 tablet 05/28/17 Unknown Rx [Percocet 10/325 mg] Folic Acid 1 mg PO QDAY #30 capsule 02/05/18 Unknown Rx Furosemide [Lasix] 20 mg PO QDAY #14 tablet 02/05/18 Unknown Rx Levothyroxine [Synthroid] 125 mcg PO QAM #30 tablet 02/05/18 Unknown Rx Oxycodone HCl/Acetaminophen 1 each PO Q4H PRN #10 tablet 02/05/18 Unknown Rx [Percocet 7.5/325 mg] ED Physical Exam - General Limitations: No Limitations General appearance: alert, in no apparent distress - Head Head exam: Present: atraumatic, normocephalic, other (there is reproducible frontal sinus tenderness) - Eye Eye exam: Present: normal appearance, EOMI. Absent: nystagmus - ENT ENT exam: Present: normal exam, normal orophraynx, mucous membranes moist, normal external ear exam - Neck Neck exam: Present: normal inspection, full ROM. Absent: tenderness, meningismus - Respiratory Respiratory exam: Present: normal lung sounds bilaterally, chest wall tenderness. Absent: respiratory distress - Cardiovascular Cardiovascular Exam: Present: regular rate, normal rhythm, normal heart sounds. Absent: bradycardia, tachycardia, irregular rhythm, systolic murmur, diastolic murmur, rubs, gallop - GI/Abdominal GI/Abdominal exam: Present: soft. Absent: distended, tenderness, guarding, rebound, rigid, pulsatile mass - Extremities Exam Extremities exam: Present: normal inspection (there is no obvious swelling noted to the bilateral wrists. There is full active, passive range of motion in the bilateral upper, lower extremities. There is no extremity, redness, pus , streaking. Compartments soft.), full ROM, normal capillary refill, pedal edema (there is 2+ pitting edema in the bilateral lower extremities), other (2+ pulses noted in the bilateral upper, lower extremities. Compartments soft. No long bony tenderness. The pelvis is stable.). Absent: tenderness, calf tenderness - Back Exam Back exam: Present: normal inspection, full ROM, paraspinal tenderness. Absent : CVA tenderness (R), CVA tenderness (L) - Neurological Exam Neurological exam: Present: alert, oriented X3, CN II-XII intact, normal gait, other (Extraocular movements intact. Tongue midline. No facial droop. Facial sensation intact to light touch in the V1, V2, V3 distribution bilaterally. 5 and 5 strength in 4 extremities.. Sensation is intact to light touch in 4 extremities.). Absent: motor sensory deficit - Psychiatric Psychiatric exam: Present: anxious - Skin Skin exam: Present: warm, dry, intact, normal color. Absent: rash ED Course Vital Signs 02/05/18 02/05/18 02/05/18 04:16 06:31 06:45 Temperature 98.3 F Pulse Rate 86 62 Respiratory 16 17 Rate Blood Pressure 151/94 129/81 137/83 Blood Pressure [Left] O2 Sat by Pulse 100 98 Oximetry 02/05/18 02/05/18 02/05/18 07:00 07:10 07:19 Temperature 98.4 F Pulse Rate 90 90 Respiratory 15 15 Rate Blood Pressure 137/83 146/98 Blood Pressure 137/83 [Left] O2 Sat by Pulse 99 99 99 Oximetry 02/05/18 02/05/18 02/05/18 07:30 07:45 08:01 Temperature Pulse Rate 76 Respiratory 17 Rate Blood Pressure 130/89 130/83 146/90 Blood Pressure [Left] O2 Sat by Pulse 100 100 100 Oximetry 02/05/18 02/05/18 02/05/18 08:15 08:20 08:31 Temperature Pulse Rate Respiratory 15 Rate Blood Pressure 146/90 146/90 Blood Pressure [Left] O2 Sat by Pulse 100 98 Oximetry 02/05/18 02/05/18 02/05/18 08:45 09:01 09:15 Temperature Pulse Rate Respiratory Rate Blood Pressure 146/90 146/90 159/95 Blood Pressure [Left] O2 Sat by Pulse 100 99 99 Oximetry 02/05/18 02/05/18 02/05/18 09:31 09:45 10:01 Temperature Pulse Rate Respiratory Rate Blood Pressure 159/95 159/95 159/95 Blood Pressure [Left] O2 Sat by Pulse 97 100 100 Oximetry 02/05/18 10:20 Temperature 98.4 F Pulse Rate 88 Respiratory 16 Rate Blood Pressure Blood Pressure 142/84 [Left] O2 Sat by Pulse 100 Oximetry - Reevaluation(s) Reevaluation #1: 02/05/18 07:59 Differential diagnosis, including not limited to: Sickle cell crisis, frontal sinus headache, pneumonia, urinary tract infection, costochondritis, sickle cell crisis, dependent edema, hepatic dysfunction, DVT Assessment and plan: 47-year-old female complaining of chest wall pain, extremity pain and swelling, dysuria I find the patient to be low risk by well's criteria, she has had multiple negative d-dimer's in the past, and she is also perc negative Chest pain by history is atypical, reproducible, low risk by heart score, and patient also had a nuclear stress test within the past year that was negative for stress-induced ischemia. The EKG today is abnormal but unchanged 2, and also appears to be unchanged from her prior EKG. Her pain will be treated, a urinalysis is pending, a chest x-ray was negative, and bilateral lower extremity DVT study is pending, although I suspect dependent edema, not thromboembolic disease. Reevaluation #2: 02/05/18 09:33 Troponin is negative 2. DVT study is negative. Laboratory studies do not demonstrate evidence of congestive heart failure, hepatic failure, renal insufficiency, or urinary tract infection. The patient is afebrile with reassuring vital signs and appears to be clinically and hemodynamically staBle. She is medically suitable for discharge at this point in time, and she can follow up with an outpatient primary care doctor. Most likely has dependent edema and lower extremities without evidence of erica congestive heart failure, or pulmonary fluid overload. Patient's TSH is elevated suggesting probably managed hypothyroidism. She will be discharged with diuretics, instructions to follow up with nephrology , Synthroid, and instructions to follow up with primary care. 02/05/18 09:34 ED Medical Decision Making - Lab Data Result diagrams: 02/05/18 04:30 02/05/18 04:30 Vital Signs 02/05/18 02/05/18 02/05/18 04:16 06:31 06:45 Temperature 98.3 F Pulse Rate 86 62 Respiratory 16 17 Rate Blood Pressure 151/94 129/81 137/83 Blood Pressure [Left] O2 Sat by Pulse 100 98 Oximetry 02/05/18 02/05/18 02/05/18 07:00 07:10 07:19 Temperature 98.4 F Pulse Rate 90 90 Respiratory 15 15 Rate Blood Pressure 137/83 146/98 Blood Pressure 137/83 [Left] O2 Sat by Pulse 99 99 99 Oximetry Labs 02/05/18 02/05/18 02/05/18 04:30 04:30 04:30 WBC 7.2 RBC 3.52 L Hgb 7.5 L Hct 23.1 L MCV 66 L MCH 21 L MCHC 32 RDW 19.9 H Plt Count 222 Lymph % (Auto) 23.5 Davidson % (Auto) 4.4 Eos % (Auto) 2.9 Baso % (Auto) 1.9 H Lymph # 1.7 Davidson # 0.3 Eos # 0.2 Baso # 0.1 Seg Neutrophils % 67.3 Seg Neutrophils # 4.8 Percent Retic 2.33 Sodium 139 Potassium 4.1 Chloride 103.2 Carbon Dioxide 21 L Anion Gap 19 BUN 12 Creatinine 1.4 H Estimated GFR 49 BUN/Creatinine Ratio 9 Glucose 105 H Calcium 8.9 Troponin T < 0.010 HCG, Qual Negative - EKG Data -: EKG Interpreted by Ks - EKG Data When compared to previous EKG there are: no significant change 02/05/18 08:01 EKG #1 demonstrates sinus, 73 bpm, QTC prolonged, left axis deviation, motion artifact, poor R-wave progression. EKG #2 was unchanged. Both EKGs appeared to be unchanged from prior EKG from 09/08/2017. - Radiology Data Radiology results: report reviewed, image reviewed X-ray of the chest is negative for acute disease. [facility] Female : 1970 MedRec# [id number] 02/05/18 09:31 - Radiology Dept. Note by AMANDA CANCHOLA [facility] Num: [id number] : 1970 Patient Age: 47 VASCULAR LAB.PRELIMINARY REPORT. BLE VENOUS DUPLEX DONE BEDSIDE. NO EVIDENCE OF DVT/SVT IN VESSELS VISUALIZED. Initialized on 02/05/18 09:31 - END OF NOTE Critical care attestation.: If time is entered above; I have spent that time in minutes in the direct care of this critically ill patient, excluding procedure time. ED Disposition Clinical Impression: Sickle-cell disease with pain, Chest pain, Dependent edema Disposition: - TO HOME OR SELFCARE Is pt being admited?: No Does the pt Need Aspirin: No Condition: Stable Instructions: Chest Pain (ED) Additional Instructions: Take the medications as directed. Laboratory studies suggested chronic anemia, chronic hypothyroidism follow-up with a primary care doctor for anemia, hypothyroidism, and edema. Alternatively, patient may follow-up with any listed cardiology groups within the next week for her chest pain and edema. Follow up with nephrology specialist or edema history of nephrectomy within the next month. Return to the ER right away with new pain, worsening pain, migration of pain, projectile vomiting, change in mental status, confusion, inability to tolerate liquids since. Prescriptions: Folic Acid 1 mg PO QDAY #30 capsule Furosemide [Lasix] 20 mg PO QDAY #14 tablet Levothyroxine [Synthroid] 125 mcg PO QAM #30 tablet Oxycodone HCl/Acetaminophen [Percocet 7.5/325 mg] 1 each PO Q4H PRN #10 tablet PRN Reason: Pain Referrals: BRADLY OCONNOR MD [Primary Care Provider] - 3-5 Days GRISELDA FLORES MD [Staff Physician] - 3-5 Days [facility] [Provider Group] - 3-5 Days [facility] [Provider Group] - 3-5 Days
--- NOTE | 2018-02-05 07:21 | XRay Report ---
FINAL REPORT EXAM: XR CHEST ROUTINE 2V HISTORY: chest pressure TECHNIQUE: PA and lateral chest radiographs PRIORS: 09/08/2017 FINDINGS: No mediastinal shift. Cardiac silhouette is not enlarged. No pneumothorax, effusion, or focal pulmonary opacity. No acute skeletal finding. IMPRESSION: No focal pulmonary opacity.
[2018-02-05 08:11] LABS: Alanine Aminotransferase 8 units/L (7-56); Albumin 4.2 g/dL (3.9-5); Bilirubin,Direct < 0.2 mg/dL (0-0.2)
[2018-02-05 08:35] LABS: Bacteria,Urine 1+ /HPF (Negative)
[2018-02-05 08:40] LABS: Bilirubin,Urine Negative (Negative); Blood,Urine Negative (Negative); Color,Urine Yellow (Yellow); Protein,Urine <15 mg/dL mg/dL (Negative); Urobilinogen,Urine < 2.0 mg/dL (<2.0)
[2018-02-05 10:22] VITALS: BP 142/84
== END 2018-02-05 10:20 | disposition home or self-care (01) ==
LOC: ED 02:29
DX: D57.1 Sickle-cell disease without crisis (principal); R07.9 Chest pain, unspecified; R60.9 Edema, unspecified; R30.0 Dysuria; M25.552 Pain in left hip; M25.551 Pain in right hip; N18.2 Chronic kidney disease, stage 2 (mild); E03.9 Hypothyroidism, unspecified; Z88.8 Allergy status to other drugs, medicaments and biological substances
CPT/HCPCS: 36415; 71046; 80048; 80074; 81001; 83735; 83880; 84443; 84484; 84703; 85025; 85045; 87086; 93005; 93010; 93970; 96372; 99285; J1170

== ENCOUNTER 2018-07-07 11:36 | Emergency (ER) | payer MEDICAID ==
[2018-07-07 11:48] VITALS: BP 136/78
[2018-07-07 12:26] LABS: Basophils # (Auto) 0.1 K/mm3 (0.0-0.1); Basophils % (Auto) 1.6 % (0.0-1.8); Eosinophils # (Auto) 0.2 K/mm3 (0.0-0.4); Eosinophils % (Auto) 3.4 % (0.0-4.3); Hematocrit 24.5 % (30.3-42.9); Hemoglobin 7.8 gm/dl (10.1-14.3); Lymphocytes % (Auto) 16.1 % (13.4-35.0); Mean Corpuscular HGB Conc 32 % (30-34); Mean Corpuscular Volume 75 fl (79-97); Monocytes # (Auto) 0.4 K/mm3 (0.0-0.8); Monocytes % (Auto) 6.8 % (0.0-7.3); Platelet Count 184 K/mm3 (140-440); Red Blood Count 3.29 M/mm3 (3.65-5.03)
[2018-07-07 12:40] LABS: INR 0.95 (0.87-1.13)
[2018-07-07 12:41] LABS: Partial Thromboplastin Time 32.6 Sec. (24.2-36.6)
[2018-07-07 12:43] LABS: Alanine Aminotransferase 6 units/L (7-56); Albumin 4.1 g/dL (3.9-5)
[2018-07-07 13:03] LABS: Free T4 (Free Thyroxine) 0.15 ng/dL (0.76-1.46)
[2018-07-07 13:10] LABS: Bilirubin,Direct < 0.2 mg/dL (0-0.2)
[2018-07-07] MEDS ORDERED: BENADRYL IV STA (13:18)
[2018-07-07] MEDS ORDERED: SUBLIMAZE IV ONE ×2 (13:18→15:20)
[2018-07-07] MEDS ORDERED: NACL 0.9% 1000 ML 1,000 ML IV ONE (13:18)
[2018-07-07] MEDS ORDERED: ZOFRAN IV STA (13:19)
--- NOTE | 2018-07-07 13:51 | Emergency Department Report ---
ED General Adult HPI - General Chief complaint: Sickle Cell Crisis Stated complaint: SICKLE CELL PAIN/CHEST TIGHTNESS Time Seen by Provider: 07/07/18 13:01 Source: patient Mode of arrival: Ambulatory Limitations: No Limitations - History of Present Illness Initial comments: 47-year-old obese -[place] female with a past medical history of sickle cell disease is most department complaining of she feels like is a sickle cell pain crisis exacerbation. She's been present for the last 1-1/2 weeks. She tried [id number] counter medications at her home Percocet with no resolution of her symptoms. Denies any fever, chills, sweats, vomiting or diarrhea but has been feeling cold symptoms with nasal congestion and coryza having some swelling to her lower extremity a few days ago which is improved today. Feels that the Weather[employer] plan role in her current symptomology, but the pain is becoming too elevated for her to cope. She denies any previous history of a DVT. States she is able to tolerate Consistency: constant Improves with: medication Worsens with: none Associated Symptoms: malaise. denies: confusion, cough, fever/chills, shortness of breath, syncope, weakness - Related Data Previous Rx's Medication Instructions Recorded Last Taken Type Oxycodone HCl/Acetaminophen 1 each PO Q6HR PRN #12 tablet 05/28/17 Unknown Rx [Percocet 10/325 mg] Folic Acid 1 mg PO QDAY #30 capsule 02/05/18 Unknown Rx Furosemide [Lasix] 20 mg PO QDAY #14 tablet 02/05/18 Unknown Rx Levothyroxine [Synthroid] 125 mcg PO QAM #30 tablet 02/05/18 Unknown Rx Oxycodone HCl/Acetaminophen 1 each PO Q4H PRN #10 tablet 02/05/18 Unknown Rx [Percocet 7.5/325 mg] Levothyroxine Sodium [Synthroid] 175 mcg PO QDAY #20 tab 07/07/18 Unknown Rx Allergies Allergy/AdvReac Type Severity Reaction Status Date / Time NSAIDS (Non-Steroidal AdvReac Unknown Verified 12/17/16 09:15 Anti-Inflamma promethazine HCl AdvReac Unknown Verified 12/17/16 09:14 [From Phenergan] tramadol AdvReac Unknown Verified 12/17/16 09:14 ED Review of Systems ROS: Stated complaint: SICKLE CELL PAIN/CHEST TIGHTNESS Other details as noted in HPI Constitutional: denies: chills, fever Eyes: denies: eye pain, eye discharge, vision change ENT: denies: ear pain, throat pain Respiratory: denies: cough, shortness of breath, wheezing Cardiovascular: denies: chest pain, palpitations Endocrine: no symptoms reported Gastrointestinal: denies: abdominal pain, nausea, diarrhea Genitourinary: denies: urgency, dysuria, discharge Musculoskeletal: denies: back pain, joint swelling, arthralgia Skin: denies: rash, lesions Neurological: denies: headache, weakness, paresthesias Psychiatric: denies: anxiety, depression Hematological/Lymphatic: denies: easy bleeding, easy bruising ED Past Medical Hx - Past Medical History Hx Congestive Heart Failure: No Hx Diabetes: No Hx Sickle Cell Disease: Yes Hx Asthma: No Hx COPD: No Additional medical history: Renal cell carcinoma,hypothyroidism. A-Fib. Stage 2 kidney Disease - Surgical History Hx Cholecystectomy: Yes Additional Surgical History: Removal left kidney, Thyroidectomy. x3, left ovary removal - Social History Smoking Status: Never Smoker Substance Use Type: Alcohol - Medications Home Medications: Home Medications Medication Instructions Recorded Confirmed Last Taken Type Oxycodone HCl/Acetaminophen 1 each PO Q6HR PRN #12 tablet 05/28/17 Unknown Rx [Percocet 10/325 mg] Folic Acid 1 mg PO QDAY #30 capsule 02/05/18 Unknown Rx Furosemide [Lasix] 20 mg PO QDAY #14 tablet 02/05/18 Unknown Rx Levothyroxine [Synthroid] 125 mcg PO QAM #30 tablet 02/05/18 Unknown Rx Oxycodone HCl/Acetaminophen 1 each PO Q4H PRN #10 tablet 02/05/18 Unknown Rx [Percocet 7.5/325 mg] Levothyroxine Sodium [Synthroid] 175 mcg PO QDAY #20 tab 07/07/18 Unknown Rx ED Physical Exam - General Limitations: No Limitations General appearance: alert, in no apparent distress - Head Head exam: Present: atraumatic, normocephalic - Eye Eye exam: Present: normal appearance, PERRL, EOMI Pupils: Present: normal accommodation - ENT ENT exam: Present: normal exam, mucous membranes moist, TM's normal bilaterally - Neck Neck exam: Present: normal inspection - Respiratory Respiratory exam: Present: normal lung sounds bilaterally. Absent: respiratory distress, wheezes, rales, chest wall tenderness, accessory muscle use, prolonged expiratory - Cardiovascular Cardiovascular Exam: Present: regular rate, normal rhythm. Absent: systolic murmur, diastolic murmur, rubs, gallop - GI/Abdominal GI/Abdominal exam: Present: soft, normal bowel sounds. Absent: distended, tenderness - Extremities Exam Extremities exam: Present: normal inspection, tenderness (to her thighs and lower extremity. No Homans sign. No cords. Pulses 2+2 dorsalis pedis and posterior tibialis. Skin has normal turgor and tenting. Capillary refills are brisk.), normal capillary refill. Absent: joint swelling - Back Exam Back exam: Present: normal inspection - Neurological Exam Neurological exam: Present: alert, oriented X3 - Psychiatric Psychiatric exam: Present: normal affect, normal mood - Skin Skin exam: Present: warm, dry, intact, normal color. Absent: rash ED Course Vital Signs 07/07/18 11:45 Temperature 98.2 F Pulse Rate 85 Respiratory 18 Rate Blood Pressure 136/78 O2 Sat by Pulse 100 Oximetry ED Medical Decision Making - Lab Data Result diagrams: 07/07/18 12:12 07/07/18 12:12 Critical care attestation.: If time is entered above; I have spent that time in minutes in the direct care of this critically ill patient, excluding procedure time. ED Disposition Clinical Impression: Sickle-cell disease with pain, Nonadherence to medication, Hypothyroid Disposition: DC-01 TO HOME OR SELFCARE Is pt being admited?: No Does the pt Need Aspirin: No Condition: Stable Instructions: Sickle Cell Crisis (ED), Thyroid Supplement (By mouth), Hypothyroidism (ED) Prescriptions: Levothyroxine Sodium [Synthroid] 175 mcg PO QDAY #20 tab Referrals: CHRISTOPHER YEN [Primary Care Provider] - 3-5 Days
--- NOTE | 2018-07-07 14:11 | XRay Report ---
FINAL REPORT EXAM: XR CHEST ROUTINE 2V HISTORY: sob,chest tightness COMPARISON: Chest radiograph performed on 02/05/2018 TECHNIQUE: Frontal and lateral views of the chest FINDINGS: The cardiomediastinal silhouette is normal in appearance. The lungs are clear without focal consolidation. There is no pleural effusion or pneumothorax. There is no acute soft tissue or osseous abnormality. IMPRESSION: No acute cardiopulmonary disease.
== END 2018-07-07 16:59 | disposition home or self-care (01) ==
LOC: ED 11:36
DX: D57.219 Sickle-cell/Hb-C disease with crisis, unspecified (principal); E89.0 Postprocedural hypothyroidism; Z90.49 Acquired absence of other specified parts of digestive tract; Z88.6 Allergy status to analgesic agent; Z88.5 Allergy status to narcotic agent
CPT/HCPCS: 36415; 71046; 80048; 80076; 84439; 84443; 84484; 85025; 85045; 85379; 85610; 85730; 93005; 93010; 96374; 96375; 96376; 99284; J1200; J2405; J3010; J7030

== ENCOUNTER 2018-10-02 03:21 | Emergency (ER) | payer MEDICAID ==
[2018-10-02 04:04] LABS: Basophils # (Auto) 0.1 K/mm3 (0.0-0.1); Basophils % (Auto) 1.8 % (0.0-1.8); Eosinophils # (Auto) 0.2 K/mm3 (0.0-0.4); Eosinophils % (Auto) 2.4 % (0.0-4.3); Hemoglobin 8.6 gm/dl (10.1-14.3); Lymphocytes # (Auto) 1.4 K/mm3 (1.2-5.4); Lymphocytes % (Auto) 20.7 % (13.4-35.0); Mean Corpuscular HGB Conc 33 % (30-34); Mean Corpuscular Volume 73 fl (79-97); Monocytes # (Auto) 0.4 K/mm3 (0.0-0.8); Monocytes % (Auto) 5.6 % (0.0-7.3); Platelet Count 226 K/mm3 (140-440); Red Blood Count 3.56 M/mm3 (3.65-5.03)
[2018-10-02 04:28] LABS: BUN/Creatinine Ratio 11; Blood Urea Nitrogen 16 mg/dL (7-17); Calcium 8.5 mg/dL (8.4-10.2); Hemolysis Index 1
--- NOTE | 2018-10-02 04:30 | XRay Report ---
PROCEDURE: XR CHEST 1V AP TECHNIQUE: Chest radiograph single view. HISTORY: Chest Pain COMPARISONS: July 07, 2018 . FINDINGS: Heart: Normal. Mediastinum/Vessels: Normal. Lungs/Pleural space: Normal. Bony thorax: No acute osseous abnormality. Life support devices: None. IMPRESSION: No acute cardiopulmonary abnormality. This document is electronically signed by Maulik Yang MD., October 02 2018 04:28:48 AM ET
[2018-10-02 04:47] VITALS: BP 129/77
[2018-10-02] MEDS ORDERED: NORCO 10/325 PO ONE (07:22)
[2018-10-02] MEDS ORDERED: ZOFRAN ODT PO ONE (07:22)
[2018-10-02] MEDS ORDERED: DUONEB *Not for PRN Use IH ONE (07:22)
[2018-10-02 07:35] LABS: INR 0.89 (0.87-1.13)
[2018-10-02 07:36] LABS: Partial Thromboplastin Time 30.1 Sec. (24.2-36.6)
--- NOTE | 2018-10-02 08:12 | Emergency Department Report ---
ED General Adult HPI - General Chief complaint: Chest Pain Stated complaint: SSC,CP,SOB Time Seen by Provider: 10/02/18 06:27 Source: patient Mode of arrival: Ambulatory Limitations: No Limitations - History of Present Illness Initial comments: Patient presents to the emergency department with a chief complaint of chest pain or shortness of breath for the last 2 days. Patient denies headache, abdominal pain, weakness. Patient describes the chest pain as a tightness and denies any radiation of her chest pain. Patient also complains of diffuse body pain as well -: Sudden Location: chest Severity scale (0 -10): 6 Quality: aching Consistency: constant Improves with: none Worsens with: none Associated Symptoms: denies other symptoms Treatments Prior to Arrival: none - Related Data Previous Rx's Medication Instructions Recorded Last Taken Type Oxycodone HCl/Acetaminophen 1 each PO Q6HR PRN #12 tablet 05/28/17 Unknown Rx [Percocet 10/325 mg] Folic Acid 1 mg PO QDAY #30 capsule 02/05/18 Unknown Rx Furosemide [Lasix] 20 mg PO QDAY #14 tablet 02/05/18 Unknown Rx Levothyroxine [Synthroid] 125 mcg PO QAM #30 tablet 02/05/18 Unknown Rx Oxycodone HCl/Acetaminophen 1 each PO Q4H PRN #10 tablet 02/05/18 Unknown Rx [Percocet 7.5/325 mg] Levothyroxine Sodium [Synthroid] 175 mcg PO QDAY #20 tab 07/07/18 Unknown Rx HYDROcodone/APAP 5-325 [[place] 1 each PO Q6HR PRN #12 tablet 10/02/18 Unknown Rx 5/325] Allergies Allergy/AdvReac Type Severity Reaction Status Date / Time promethazine HCl Allergy Unknown Verified 10/02/18 03:30 [From Phenergan] ketorolac [From Toradol] AdvReac Unknown Verified 10/02/18 03:30 NSAIDS (Non-Steroidal AdvReac Unknown Verified 12/17/16 09:15 Anti-Inflamma tramadol AdvReac Unknown Verified 12/17/16 09:14 ED Review of Systems ROS: Stated complaint: SSC,CP,SOB Other details as noted in HPI Comment: Unobtainable due to pts medical conditions Constitutional: denies: chills, fever Eyes: denies: eye pain, eye discharge, vision change ENT: denies: ear pain, throat pain Respiratory: shortness of breath. denies: cough, wheezing Cardiovascular: chest pain. denies: palpitations Endocrine: no symptoms reported Gastrointestinal: denies: abdominal pain, nausea, diarrhea Genitourinary: denies: urgency, dysuria, discharge Musculoskeletal: denies: back pain, joint swelling, arthralgia Skin: denies: rash, lesions Neurological: denies: headache, weakness, paresthesias Psychiatric: denies: anxiety, depression Hematological/Lymphatic: denies: easy bleeding, easy bruising ED Past Medical Hx - Past Medical History Previous Medical History?: Yes Hx Congestive Heart Failure: No Hx Diabetes: No Hx Sickle Cell Disease: Yes Hx Asthma: No Hx COPD: No Additional medical history: Renal cell carcinoma,hypothyroidism. A-Fib. Stage 2 kidney Disease. fibroids - Surgical History Past Surgical History?: Yes Hx Cholecystectomy: Yes Additional Surgical History: Removal left kidney, Thyroidectomy. x3, left ovary removal - Social History Smoking Status: Never Smoker Substance Use Type: Alcohol - Medications Home Medications: Home Medications Medication Instructions Recorded Confirmed Last Taken Type Oxycodone HCl/Acetaminophen 1 each PO Q6HR PRN #12 tablet 05/28/17 Unknown Rx [Percocet 10/325 mg] Folic Acid 1 mg PO QDAY #30 capsule 02/05/18 Unknown Rx Furosemide [Lasix] 20 mg PO QDAY #14 tablet 02/05/18 Unknown Rx Levothyroxine [Synthroid] 125 mcg PO QAM #30 tablet 02/05/18 Unknown Rx Oxycodone HCl/Acetaminophen 1 each PO Q4H PRN #10 tablet 02/05/18 Unknown Rx [Percocet 7.5/325 mg] Levothyroxine Sodium [Synthroid] 175 mcg PO QDAY #20 tab 07/07/18 Unknown Rx HYDROcodone/APAP 5-325 [[place] 1 each PO Q6HR PRN #12 tablet 10/02/18 Unknown Rx 5/325] ED Physical Exam - General Limitations: No Limitations General appearance: alert, in no apparent distress - Head Head exam: Present: atraumatic, normocephalic - Eye Eye exam: Present: normal appearance, PERRL, EOMI - ENT ENT exam: Present: mucous membranes moist - Neck Neck exam: Present: normal inspection - Respiratory Respiratory exam: Present: normal lung sounds bilaterally, wheezes. Absent: respiratory distress, rales - Cardiovascular Cardiovascular Exam: Present: regular rate, normal rhythm. Absent: systolic murmur, diastolic murmur, rubs, gallop - GI/Abdominal GI/Abdominal exam: Present: soft, normal bowel sounds. Absent: distended, tenderness - Extremities Exam Extremities exam: Present: normal inspection - Back Exam Back exam: Present: normal inspection - Neurological Exam Neurological exam: Present: alert, oriented X3, CN II-XII intact. Absent: motor sensory deficit - Psychiatric Psychiatric exam: Present: normal affect, normal mood - Skin Skin exam: Present: warm, dry, intact, normal color. Absent: rash ED Course Vital Signs 10/02/18 10/02/18 10/02/18 03:31 04:40 06:53 Temperature 98.3 F Pulse Rate 85 80 Pulse Rate [ Anterior Bilateral Throughout] Respiratory 16 24 16 Rate Respiratory Rate [Anterior Bilateral Throughout] Blood Pressure 129/77 129/77 [Right] O2 Sat by Pulse 98 99 98 Oximetry 10/02/18 10/02/18 08:05 08:15 Temperature Pulse Rate Pulse Rate [ 72 77 Anterior Bilateral Throughout] Respiratory Rate Respiratory 21 16 Rate [Anterior Bilateral Throughout] Blood Pressure [Right] O2 Sat by Pulse Oximetry ED Medical Decision Making - Lab Data Result diagrams: 10/02/18 03:42 10/02/18 03:42 Lab Results 10/02/18 10/02/18 10/02/18 Range/Units 03:42 03:42 06:39 WBC 6.9 (4.5-11.0) K/mm3 RBC 3.56 L (3.65-5.03) M/mm3 Hgb 8.6 L (10.1-14.3) gm/dl Hct 26.0 L (30.3-42.9) % MCV 73 L (79-97) fl MCH 24 L (28-32) pg MCHC 33 (30-34) % RDW 20.0 H (13.2-15.2) % Plt Count 226 (140-440) K/mm3 Lymph % (Auto) 20.7 (13.4-35.0) % [place] % (Auto) 5.6 (0.0-7.3) % Eos % (Auto) 2.4 (0.0-4.3) % Baso % (Auto) 1.8 (0.0-1.8) % Lymph # 1.4 (1.2-5.4) K/mm3 [place] # 0.4 (0.0-0.8) K/mm3 Eos # 0.2 (0.0-0.4) K/mm3 Baso # 0.1 (0.0-0.1) K/mm3 Seg Neutrophils % 69.5 (40.0-70.0) % Seg Neutrophils # 4.8 (1.8-7.7) K/mm3 PT (12.2-14.9) Sec. INR (0.87-1.13) APTT (24.2-36.6) Sec. D-Dimer (0-234) ng/mlDDU Sodium 139 (137-145) mmol/L Potassium 3.8 (3.6-5.0) mmol/L Chloride 104.7 (98-107) mmol/L Carbon Dioxide 21 L (22-30) mmol/L Anion Gap 17 mmol/L BUN 16 (7-17) mg/dL Creatinine 1.5 H (0.7-1.2) mg/dL Estimated GFR 45 ml/min BUN/Creatinine Ratio 11 % Glucose 102 H (65-100) mg/dL Calcium 8.5 (8.4-10.2) mg/dL Troponin T < 0.010 < 0.010 (0.00-0.029) ng/mL NT-Pro-B Natriuret Pep (0-450) pg/mL 10/02/18 10/02/18 10/02/18 Range/Units 06:39 07:19 09:23 WBC (4.5-11.0) K/mm3 RBC (3.65-5.03) M/mm3 Hgb (10.1-14.3) gm/dl Hct (30.3-42.9) % MCV (79-97) fl MCH (28-32) pg MCHC (30-34) % RDW (13.2-15.2) % Plt Count (140-440) K/mm3 Lymph % (Auto) (13.4-35.0) % [place] % (Auto) (0.0-7.3) % Eos % (Auto) (0.0-4.3) % Baso % (Auto) (0.0-1.8) % Lymph # (1.2-5.4) K/mm3 [place] # (0.0-0.8) K/mm3 Eos # (0.0-0.4) K/mm3 Baso # (0.0-0.1) K/mm3 Seg Neutrophils % (40.0-70.0) % Seg Neutrophils # (1.8-7.7) K/mm3 PT 12.6 (12.2-14.9) Sec. INR 0.89 (0.87-1.13) APTT 30.1 (24.2-36.6) Sec. D-Dimer 313.31 H (0-234) ng/mlDDU Sodium (137-145) mmol/L Potassium (3.6-5.0) mmol/L Chloride (98-107) mmol/L Carbon Dioxide (22-30) mmol/L Anion Gap mmol/L BUN (7-17) mg/dL Creatinine (0.7-1.2) mg/dL Estimated GFR ml/min BUN/Creatinine Ratio % Glucose (65-100) mg/dL Calcium (8.4-10.2) mg/dL Troponin T < 0.010 (0.00-0.029) ng/mL NT-Pro-B Natriuret Pep 66.21 (0-450) pg/mL - EKG Data -: EKG Interpreted by Me EKG shows normal: sinus rhythm Rate: normal - Radiology Data Radiology results: report reviewed - Medical Decision Making Discussed results with the patient Critical care attestation.: If time is entered above; I have spent that time in minutes in the direct care of this critically ill patient, excluding procedure time. ED Disposition Clinical Impression: Pleurisy, Chest pain, SOB (shortness of breath) Disposition: DC- TO HOME OR SELFCARE Is pt being admited?: No Does the pt Need Aspirin: No Condition: Stable Instructions: Chest Pain (ED), Pleurisy (ED), Dyspnea (ED) Additional Instructions: return if worse Prescriptions: HYDROcodone/APAP 5-325 [[place] 5/325] 1 each PO Q6HR PRN #12 tablet PRN Reason: Pain Referrals: CHRISTOPHER YEN MD [Primary Care Provider] - 3-5 Days [facility] [Provider Group] - 3-5 Days [facility] [Provider Group] - 3-5 Days Time of Disposition: 10:25
[2018-10-02] MEDS ORDERED: MORPHINE IV ONE (09:31)
[2018-10-02] MEDS ORDERED: ZOFRAN IV ONE (09:31)
--- NOTE | 2018-10-02 09:31 | Nuclear Medicine Report ---
LUNG SCAN, VENTILATION AND PERFUSION: History: Chest pain, shortness of breath, elevated d-dimer. Technique: 5mci of Tc99m MAA was infused for the perfusion images. 15mci XE 133 gas was inhaled for the ventilatory images. Correlation is made with a chest x-ray dated 10/02/18. Findings: Inhalation of Xenon gas demonstrates a normal distribution of the activity throughout both lungs. The wash out phases show no focal retention of activity. After injection of Technetium 99m macroaggregated albumin gamma camera imaging of the lungs in multiple projections demonstrates normal pulmonary contours with a homogeneous distribution of activity. No focal areas of perfusion deficiency are identified. IMPRESSION: Low probability for pulmonary embolus.
== END 2018-10-02 11:19 | disposition home or self-care (01) ==
LOC: ED 03:21
DX: R09.1 Pleurisy (principal); E03.9 Hypothyroidism, unspecified; Z90.49 Acquired absence of other specified parts of digestive tract; Z88.8 Allergy status to other drugs, medicaments and biological substances; Z88.6 Allergy status to analgesic agent
CPT/HCPCS: 36415; 71045; 78582; 80048; 83880; 84484; 85025; 85379; 85610; 85730; 93005; 93010; 94640; 96374; 96375; 99284; A9540; A9558; J2270; J2405; Q0162

== ENCOUNTER 2018-10-28 21:19 | Emergency (ER) | payer MEDICAID ==
--- NOTE | 2018-10-28 22:13 | Emergency Department Report ---
Blank Doc - Documentation Documentation: This is a 48-year-old female that presents with chest pain and SOB. Also has some n/v. This initial assessment/diagnostic orders/clinical plan/treatment(s) is/are subject to change based on patient's health status, clinical progression and re- assessment by fellow clinical providers in the ED. Further treatment and workup at subsequent clinical providers discretion. Patient/guardians urged not to elope from the ED as their condition may be serious if not clinically assessed and managed. Initial orders include: 1- Patient sent to MAIN ED for further evaluation and treatment 2- labs 3- EKG 4- CXR
[2018-10-28 22:52] LABS: Basophils # (Auto) 0.2 K/mm3 (0.0-0.1); Basophils % (Auto) 2.9 % (0.0-1.8); Eosinophils # (Auto) 0.1 K/mm3 (0.0-0.4); Eosinophils % (Auto) 1.6 % (0.0-4.3); Hematocrit 26.5 % (30.3-42.9); Hemoglobin 8.6 gm/dl (10.1-14.3); Lymphocytes # (Auto) 1.9 K/mm3 (1.2-5.4); Lymphocytes % (Auto) 24.4 % (13.4-35.0); Mean Corpuscular HGB Conc 33 % (30-34); Mean Corpuscular Volume 71 fl (79-97); Monocytes # (Auto) 0.4 K/mm3 (0.0-0.8); Monocytes % (Auto) 4.6 % (0.0-7.3); Platelet Count 288 K/mm3 (140-440); Red Blood Count 3.75 M/mm3 (3.65-5.03)
[2018-10-28 23:01] LABS: INR 0.99 (0.87-1.13); Red Cell Distribution Width 20.1 % (13.2-15.2)
[2018-10-28 23:02] LABS: Partial Thromboplastin Time 30.6 Sec. (24.2-36.6)
--- NOTE | 2018-10-28 23:41 | XRay Report ---
PROCEDURE: XR CHEST ROUTINE 2V TECHNIQUE: 2 view chest HISTORY: Chest Pain COMPARISONS: Chest x-ray October 02, 2018 FINDINGS: Trachea midline. Heart size normal. No pneumothorax. No sizable effusion. No acute airspace disease. No acute bony abnormality IMPRESSION: No acute pulmonary disease.. This document is electronically signed by Shankar Sykes MD., Oct 28 2018 11:39:17 PM ET
[2018-10-28 23:46] LABS: Alanine Aminotransferase 9 units/L (7-56); Albumin 3.9 g/dL (3.9-5); BUN/Creatinine Ratio 11; Blood Urea Nitrogen 17 mg/dL (7-17); Calcium 8.9 mg/dL (8.4-10.2); Hemolysis Index 3
[2018-10-29 10:29] VITALS: BP 127/89
[2018-10-29] MEDS ORDERED: NACL 0.9% 1000 ML 1,000 ML IV ONE (12:12)
[2018-10-29] MEDS ORDERED: DILAUDID IV ONE ×2 (12:18→14:59)
--- NOTE | 2018-10-29 12:40 | Emergency Department Report ---
ED General Adult HPI - General Chief complaint: Sickle Cell Crisis Stated complaint: SICKLE CELL CRISIS/PAIN IN CHEST/SOB Time Seen by Provider: 10/28/18 22:11 Source: patient Mode of arrival: Ambulatory Limitations: No Limitations - History of Present Illness Initial comments: Patient is a 48-year-old -Citizen Of [place] female that comes in with complaints of pain. Pain in her chest pain in her back pain when she breathes. Patient states this feels like her typical sickle cell crisis. Patient has no history of coronary artery disease or CVA. Patient is ambulatory on arrival to the ER with stable vital signs. Severity scale (0 -10): 9 - Related Data Previous Rx's Medication Instructions Recorded Last Taken Type Folic Acid 1 mg PO QDAY #30 capsule 02/05/18 Unknown Rx Levothyroxine Sodium [Synthroid] 175 mcg PO QDAY #20 tab 07/07/18 Unknown Rx Allergies Allergy/AdvReac Type Severity Reaction Status Date / Time promethazine HCl Allergy Unknown Verified 10/02/18 03:30 [From Phenergan] quetiapine [From Seroquel] Allergy Unknown Verified 10/28/18 21:23 ketorolac [From Toradol] AdvReac Unknown Verified 10/02/18 03:30 NSAIDS (Non-Steroidal AdvReac Unknown Verified 12/17/16 09:15 Anti-Inflamma tramadol AdvReac Unknown Verified 12/17/16 09:14 ED Review of Systems ROS: Stated complaint: SICKLE CELL CRISIS/PAIN IN CHEST/SOB Other details as noted in HPI Comment: All other systems reviewed and negative ED Past Medical Hx - Past Medical History Hx Congestive Heart Failure: No Hx Diabetes: No Hx Sickle Cell Disease: Yes Hx Asthma: No Hx COPD: No Additional medical history: Renal cell carcinoma,hypothyroidism. A-Fib. Stage 2 kidney Disease. fibroids - Surgical History Hx Cholecystectomy: Yes Additional Surgical History: Removal left kidney, Thyroidectomy. x3, left ovary removal - Social History Smoking Status: Never Smoker Substance Use Type: None - Medications Home Medications: Home Medications Medication Instructions Recorded Confirmed Last Taken Type Folic Acid 1 mg PO QDAY #30 capsule 02/05/18 Unknown Rx Levothyroxine Sodium [Synthroid] 175 mcg PO QDAY #20 tab 07/07/18 Unknown Rx ED Physical Exam - General Limitations: No Limitations General appearance: alert - Head Head exam: Present: normocephalic - Eye Eye exam: Present: normal appearance, PERRL - ENT ENT exam: Present: mucous membranes moist - Neck Neck exam: Present: normal inspection - Respiratory Respiratory exam: Present: normal lung sounds bilaterally - Cardiovascular Cardiovascular Exam: Present: regular rate - GI/Abdominal GI/Abdominal exam: Present: soft, normal bowel sounds - Rectal Rectal exam: Present: deferred - Extremities Exam Extremities exam: Present: normal inspection, full ROM - Back Exam Back exam: Present: normal inspection, full ROM - Neurological Exam Neurological exam: Present: alert, oriented X3, CN II-XII intact - Psychiatric Psychiatric exam: Present: normal affect, normal mood - Skin Skin exam: Present: warm, dry, intact ED Course Vital Signs 10/28/18 10/28/18 10/29/18 21:24 22:12 04:28 Temperature 98.0 F 98.0 F 98.3 F Pulse Rate 89 86 95 H Respiratory 18 18 18 Rate Blood Pressure 154/77 154/77 142/85 O2 Sat by Pulse 100 100 100 Oximetry 10/29/18 10:24 Temperature 97.6 F Pulse Rate 77 Respiratory 20 Rate Blood Pressure 127/89 O2 Sat by Pulse 97 Oximetry ED Medical Decision Making - Lab Data Result diagrams: 10/28/18 22:34 10/28/18 22:34 - EKG Data -: EKG Interpreted by Pr EKG shows normal: sinus rhythm Rate: normal - EKG Data When compared to previous EKG there are: no significant change Interpretation: no acute changes - Radiology Data Radiology results: report reviewed, image reviewed - Medical Decision Making Vital Signs 10/28/18 10/28/18 10/29/18 21:24 22:12 04:28 Temperature 98.0 F 98.0 F 98.3 F Pulse Rate 89 86 95 H Respiratory 18 18 18 Rate Blood Pressure 154/77 154/77 142/85 O2 Sat by Pulse 100 100 100 Oximetry 10/29/18 10:24 Temperature 97.6 F Pulse Rate 77 Respiratory 20 Rate Blood Pressure 127/89 O2 Sat by Pulse 97 Oximetry Lab Results 10/28/18 10/28/18 10/28/18 Range/Units 22:34 22:34 22:34 WBC 7.7 (4.5-11.0) K/mm3 RBC 3.75 (3.65-5.03) M/mm3 Hgb 8.6 L (10.1-14.3) gm/dl Hct 26.5 L (30.3-42.9) % MCV 71 L (79-97) fl MCH 23 L (28-32) pg MCHC 33 (30-34) % RDW 20.1 H (13.2-15.2) % Plt Count 288 (140-440) K/mm3 Lymph % (Auto) 24.4 (13.4-35.0) % [place] % (Auto) 4.6 (0.0-7.3) % Eos % (Auto) 1.6 (0.0-4.3) % Baso % (Auto) 2.9 H (0.0-1.8) % Lymph # 1.9 (1.2-5.4) K/mm3 [place] # 0.4 (0.0-0.8) K/mm3 Eos # 0.1 (0.0-0.4) K/mm3 Baso # 0.2 H (0.0-0.1) K/mm3 Seg Neutrophils % 66.5 (40.0-70.0) % Seg Neutrophils # 5.1 (1.8-7.7) K/mm3 Percent Retic (0.78-2.58) % PT 13.7 (12.2-14.9) Sec. INR 0.99 (0.87-1.13) APTT 30.6 (24.2-36.6) Sec. Sodium 141 (137-145) mmol/L Potassium 3.8 (3.6-5.0) mmol/L Chloride 105.4 (98-107) mmol/L Carbon Dioxide 17 L (22-30) mmol/L Anion Gap 22 mmol/L BUN 17 (7-17) mg/dL Creatinine 1.6 H (0.7-1.2) mg/dL Estimated GFR 42 ml/min BUN/Creatinine Ratio 11 % Glucose 97 (65-100) mg/dL Calcium 8.9 (8.4-10.2) mg/dL Total Bilirubin 0.40 (0.1-1.2) mg/dL AST 21 (5-40) units/L ALT 9 (7-56) units/L Alkaline Phosphatase 85 (35-129) units/L Troponin T < 0.010 (0.00-0.029) ng/mL Total Protein 8.2 (6.3-8.2) g/dL Albumin 3.9 (3.9-5) g/dL Albumin/Globulin Ratio 0.9 % Lipase 67 H (13-60) units/L Urine Color (Yellow) Urine Turbidity (Clear) Urine pH (5.0-7.0) Ur Specific Mcdougal (1.003-1.030) Urine Protein (Negative) mg/dL Urine Glucose (UA) (Negative) mg/dL Urine Ketones (Negative) mg/dL Urine Blood (Negative) Urine Nitrite (Negative) Urine Bilirubin (Negative) Urine Urobilinogen (<2.0) mg/dL Ur Leukocyte Esterase (Negative) Urine WBC (Auto) (0.0-6.0) /HPF Urine RBC (Auto) (0.0-6.0) /HPF U Epithel Cells (Auto) (0-13.0) /HPF Urine Mucus /HPF Urine HCG, Qual (Negative) Urine Opiates Screen Urine Methadone Screen Ur Barbiturates Screen Ur Phencyclidine Scrn Ur Amphetamines Screen U Benzodiazepines Scrn Urine Cocaine Screen U Marijuana (THC) Screen Drugs of Abuse Note 10/29/18 10/29/18 10/29/18 Range/Units 10:59 12:27 14:07 WBC (4.5-11.0) K/mm3 RBC (3.65-5.03) M/mm3 Hgb (10.1-14.3) gm/dl Hct (30.3-42.9) % MCV (79-97) fl MCH (28-32) pg MCHC (30-34) % RDW (13.2-15.2) % Plt Count (140-440) K/mm3 Lymph % (Auto) (13.4-35.0) % [place] % (Auto) (0.0-7.3) % Eos % (Auto) (0.0-4.3) % Baso % (Auto) (0.0-1.8) % Lymph # (1.2-5.4) K/mm3 [place] # (0.0-0.8) K/mm3 Eos # (0.0-0.4) K/mm3 Baso # (0.0-0.1) K/mm3 Seg Neutrophils % (40.0-70.0) % Seg Neutrophils # (1.8-7.7) K/mm3 Percent Retic 2.54 (0.78-2.58) % PT (12.2-14.9) Sec. INR (0.87-1.13) APTT (24.2-36.6) Sec. Sodium (137-145) mmol/L Potassium (3.6-5.0) mmol/L Chloride (98-107) mmol/L Carbon Dioxide (22-30) mmol/L Anion Gap mmol/L BUN (7-17) mg/dL Creatinine (0.7-1.2) mg/dL Estimated GFR ml/min BUN/Creatinine Ratio % Glucose (65-100) mg/dL Calcium (8.4-10.2) mg/dL Total Bilirubin (0.1-1.2) mg/dL AST (5-40) units/L ALT (7-56) units/L Alkaline Phosphatase (35-129) units/L Troponin T < 0.010 (0.00-0.029) ng/mL Total Protein (6.3-8.2) g/dL Albumin (3.9-5) g/dL Albumin/Globulin Ratio % Lipase (13-60) units/L Urine Color (Yellow) Urine Turbidity (Clear) Urine pH (5.0-7.0) Ur Specific Mcdougal (1.003-1.030) Urine Protein (Negative) mg/dL Urine Glucose (UA) (Negative) mg/dL Urine Ketones (Negative) mg/dL Urine Blood (Negative) Urine Nitrite (Negative) Urine Bilirubin (Negative) Urine Urobilinogen (<2.0) mg/dL Ur Leukocyte Esterase (Negative) Urine WBC (Auto) (0.0-6.0) /HPF Urine RBC (Auto) (0.0-6.0) /HPF U Epithel Cells (Auto) (0-13.0) /HPF Urine Mucus /HPF Urine HCG, Qual (Negative) Urine Opiates Screen Presumptive negative Urine Methadone Screen Presumptive negative Ur Barbiturates Screen Presumptive negative Ur Phencyclidine Scrn Presumptive negative Ur Amphetamines Screen Presumptive negative U Benzodiazepines Scrn Presumptive negative Urine Cocaine Screen Presumptive negative U Marijuana (THC) Screen Presumptive negative Drugs of Abuse Note Disclamer 10/29/18 Range/Units 14:07 WBC (4.5-11.0) K/mm3 RBC (3.65-5.03) M/mm3 Hgb (10.1-14.3) gm/dl Hct (30.3-42.9) % MCV (79-97) fl MCH (28-32) pg MCHC (30-34) % RDW (13.2-15.2) % Plt Count (140-440) K/mm3 Lymph % (Auto) (13.4-35.0) % [place] % (Auto) (0.0-7.3) % Eos % (Auto) (0.0-4.3) % Baso % (Auto) (0.0-1.8) % Lymph # (1.2-5.4) K/mm3 [place] # (0.0-0.8) K/mm3 Eos # (0.0-0.4) K/mm3 Baso # (0.0-0.1) K/mm3 Seg Neutrophils % (40.0-70.0) % Seg Neutrophils # (1.8-7.7) K/mm3 Percent Retic (0.78-2.58) % PT (12.2-14.9) Sec. INR (0.87-1.13) APTT (24.2-36.6) Sec. Sodium (137-145) mmol/L Potassium (3.6-5.0) mmol/L Chloride (98-107) mmol/L Carbon Dioxide (22-30) mmol/L Anion Gap mmol/L BUN (7-17) mg/dL Creatinine (0.7-1.2) mg/dL Estimated GFR ml/min BUN/Creatinine Ratio % Glucose (65-100) mg/dL Calcium (8.4-10.2) mg/dL Total Bilirubin (0.1-1.2) mg/dL AST (5-40) units/L ALT (7-56) units/L Alkaline Phosphatase (35-129) units/L Troponin T (0.00-0.029) ng/mL Total Protein (6.3-8.2) g/dL Albumin (3.9-5) g/dL Albumin/Globulin Ratio % Lipase (13-60) units/L Urine Color Yellow (Yellow) Urine Turbidity Clear (Clear) Urine pH 5.0 (5.0-7.0) Ur Specific Mcdougal 1.027 (1.003-1.030) Urine Protein 30 mg/dl (Negative) mg/dL Urine Glucose (UA) Neg (Negative) mg/dL Urine Ketones Neg (Negative) mg/dL Urine Blood Neg (Negative) Urine Nitrite Neg (Negative) Urine Bilirubin Neg (Negative) Urine Urobilinogen < 2.0 (<2.0) mg/dL Ur Leukocyte Esterase Sm (Negative) Urine WBC (Auto) 19.0 H (0.0-6.0) /HPF Urine RBC (Auto) 2.0 (0.0-6.0) /HPF U Epithel Cells (Auto) 3.0 (0-13.0) /HPF Urine Mucus Few /HPF Urine HCG, Qual Negative (Negative) Urine Opiates Screen Urine Methadone Screen Ur Barbiturates Screen Ur Phencyclidine Scrn Ur Amphetamines Screen U Benzodiazepines Scrn Urine Cocaine Screen U Marijuana (THC) Screen Drugs of Abuse Note medicated with fluids/zoftan and dilaudid feeling better trop neg x 2 retic normal dc home on her usual medications. to follow up with her MD for additional pain meds. - Differential Diagnosis ro crisis Critical care attestation.: If time is entered above; I have spent that time in minutes in the direct care of this critically ill patient, excluding procedure time. ED Disposition Clinical Impression: Sickle-cell disease with pain Disposition: DC-01 TO HOME OR SELFCARE Is pt being admited?: No Does the pt Need Aspirin: No Condition: Stable Instructions: Sickle Cell Crisis (ED) Additional Instructions: DIET TOLERATED MEDS ORDERED TODAY IN ER FOLLOW INSTRUCTIONS ON THE BOTTLE FOLLOW UP PCP WITHIN 48 HOURS TO ENSURE YOU ARE GETTING BETTER ACTIVITY TOLERATED MOTRIN OR TYLENOL FOR PAIN OR FEVER RETURN TO THE ER FOR WORSENING SYMPTOMS NOT RELIEVED BY YOUR MEDICATIONS. Referrals: ZURI BLAIR MD [Primary Care Provider] - 3-5 Days Time of Disposition: 14:59
[2018-10-29] MEDS ORDERED: ZOFRAN IV ONE (13:14)
[2018-10-29 14:44] LABS: Bilirubin,Urine NEG (Negative); Blood,Urine NEG (Negative); Color,Urine Yellow (Yellow); Mucus,Urine FEW /HPF; Urobilinogen,Urine < 2.0 mg/dL (<2.0)
[2018-10-29 14:47] LABS: Amphetamine Screen,Urine PRESUMPTIVE NEGATIVE; Benzodiazepines Screen,Urine PRESUMPTIVE NEGATIVE; Cannabinoid Screen,Urine PRESUMPTIVE NEGATIVE; Cocaine Screen,Urine PRESUMPTIVE NEGATIVE; Methadone Screen,Urine PRESUMPTIVE NEGATIVE; Opiate Screen,Urine PRESUMPTIVE NEGATIVE
[2018-10-29 14:52] LABS: HCG Qualitative,Urine Negative (Negative)
== END 2018-10-29 15:19 | disposition home or self-care (01) ==
LOC: ED 21:19
DX: D57.00 Hb-SS disease with crisis, unspecified (principal); I48.91 Unspecified atrial fibrillation; E89.0 Postprocedural hypothyroidism; Z90.49 Acquired absence of other specified parts of digestive tract; Z88.8 Allergy status to other drugs, medicaments and biological substances; Z88.5 Allergy status to narcotic agent
CPT/HCPCS: 36415; 71046; 80053; 80307; 81001; 81025; 83690; 84484; 85025; 85045; 85610; 85730; 93005; 93010; 96374; 96375; 96376; 99284; J1170; J2405; J7030; 96361

== ENCOUNTER 2019-01-22 01:23 | Emergency (ER) | payer SELFPAY ==
[2019-01-22 02:18] LABS: Albumin 4.1 g/dL (3.9-5)
[2019-01-22 02:32] LABS: Hematocrit 27.3 % (30.3-42.9); Hemoglobin 8.8 gm/dl (10.1-14.3); Lymphocytes % (Auto) 21.4 % (13.4-35.0); Mean Corpuscular HGB Conc 32 % (30-34); Mean Corpuscular Volume 70 fl (79-97); Mean Platelet Volume 10.5 fl (6-12); Platelet Count 202 K/mm3 (140-440); Red Blood Count 3.87 M/mm3 (3.65-5.03); Red Cell Distribution Width 21.1 % (13.2-15.2)
[2019-01-22 02:33] LABS: Basophils # (Auto) 0.1 K/mm3 (0.0-0.1); Basophils % (Auto) 1.1 % (0.0-1.8); Eosinophils # (Auto) 0.2 K/mm3 (0.0-0.4); Eosinophils % (Auto) 2.8 % (0.0-4.3); Lymphocytes # (Auto) 1.3 K/mm3 (1.2-5.4); Monocytes # (Auto) 0.6 K/mm3 (0.0-0.8); Monocytes % (Auto) 9.7 % (0.0-7.3)
[2019-01-22] MEDS ORDERED: BENADRYL PO ONE (03:52)
[2019-01-22] MEDS ORDERED: DILAUDID IM ONE (03:52)
[2019-01-22] MEDS ORDERED: ZOFRAN ODT PO ONE (03:52)
--- NOTE | 2019-01-22 03:53 | Emergency Department Report ---
<ABEL MARCIAL - Last Filed: 01/22/19 05:28> ED General Adult HPI - General Chief complaint: Sickle Cell Crisis Stated complaint: SICKLE CELL Time Seen by Provider: 01/22/19 02:59 Source: patient, RN notes reviewed, old records reviewed Mode of arrival: Ambulatory Limitations: No Limitations - History of Present Illness Initial comments: This is a 48-year-old female. Her past medical history includes sickle cell disease, history of left nephrectomy, hypothyroidism, paroxysmal A. fib, chronic renal insufficiency. The patient states that she is not . The patient had a nuclear cardiac stress test at this hospital in 2017 which was negative for ischemic changes. The patient presents to the ER today with multiple complaints, including chest wall pain, lower back pain, dysuria, lower extremity swelling, shortness of breath, positive nausea, no vomiting. Symptoms present for the past 2 days. They're constant. The increased with palpation. There are decreased with rest. She is not sure of her sickle cell crisis is acting up. Her pain is typically improved with hydromorphone and Benadryl. -: Gradual, days(s) Location: chest, back, left, right, lower extremity Quality: aching Consistency: constant Improves with: medication, rest Worsens with: movement - Related Data Previous Rx's Medication Instructions Recorded Last Taken Type Folic Acid 1 mg PO QDAY #30 capsule 02/05/18 Unknown Rx Levothyroxine Sodium [Synthroid] 175 mcg PO QDAY #20 tab 07/07/18 Unknown Rx Ciprofloxacin HCl [Ciprofloxacin 500 mg PO Q12HR 10 Days #20 tab 01/22/19 Unknown Rx TAB] HYDROcodone/APAP 7.5-325 [[place] 1 each PO Q6HR PRN #12 tablet 01/22/19 Unknown Rx 7.5/325] Allergies Allergy/AdvReac Type Severity Reaction Status Date / Time promethazine HCl Allergy Unknown Verified 10/02/18 03:30 [From Phenergan] quetiapine [From Seroquel] Allergy Unknown Verified 10/28/18 21:23 ketorolac [From Toradol] AdvReac Unknown Verified 10/02/18 03:30 NSAIDS (Non-Steroidal AdvReac Unknown Verified 12/17/16 09:15 Anti-Inflamma tramadol AdvReac Unknown Verified 12/17/16 09:14 ED Review of Systems Constitutional: malaise. denies: fever, weakness Eyes: denies: eye discharge ENT: denies: congestion Respiratory: shortness of breath Cardiovascular: chest pain Gastrointestinal: nausea. denies: abdominal pain Genitourinary: dysuria Musculoskeletal: back pain, arthralgia, myalgia Skin: denies: lesions Neurological: weakness Psychiatric: anxiety ED Past Medical Hx - Past Medical History Hx Congestive Heart Failure: No Hx Diabetes: No Hx Sickle Cell Disease: Yes Hx Asthma: No Hx COPD: No Additional medical history: Renal cell carcinoma,hypothyroidism. A-Fib. Stage 2 kidney Disease. fibroids - Surgical History Hx Cholecystectomy: Yes Additional Surgical History: Removal left kidney, Thyroidectomy. x3, left ovary removal - Social History Smoking Status: Never Smoker Substance Use Type: Alcohol - Medications Home Medications: Home Medications Medication Instructions Recorded Confirmed Last Taken Type Folic Acid 1 mg PO QDAY #30 capsule 02/05/18 Unknown Rx Levothyroxine Sodium [Synthroid] 175 mcg PO QDAY #20 tab 07/07/18 Unknown Rx Ciprofloxacin HCl [Ciprofloxacin 500 mg PO Q12HR 10 Days #20 tab 01/22/19 Unknown Rx TAB] HYDROcodone/APAP 7.5-325 [[place] 1 each PO Q6HR PRN #12 tablet 01/22/19 Unknown Rx 7.5/325] ED Physical Exam - General Limitations: No Limitations General appearance: alert, anxious, obese - Head Head exam: Present: atraumatic, normocephalic - Eye Eye exam: Present: normal appearance, EOMI. Absent: nystagmus - ENT ENT exam: Present: normal exam, normal orophraynx, mucous membranes moist, normal external ear exam - Neck Neck exam: Present: normal inspection, full ROM. Absent: tenderness, meningismus - Respiratory Respiratory exam: Present: normal lung sounds bilaterally, chest wall tenderness. Absent: respiratory distress, wheezes, rales, rhonchi, stridor - Cardiovascular Cardiovascular Exam: Present: regular rate, normal rhythm, normal heart sounds. Absent: bradycardia, tachycardia, irregular rhythm, systolic murmur, diastolic murmur, rubs, gallop - GI/Abdominal GI/Abdominal exam: Present: soft. Absent: distended, tenderness, guarding, rebo und, rigid, pulsatile mass - Extremities Exam Extremities exam: Present: normal inspection, full ROM, pedal edema, other (2+ pulses noted in the bilateral upper, lower extremities. The compartments are soft. There is bilateral lower extremity dependent edema. There is long bony tenderness on the bilateral lower extremities. The pelvis is stable.). Absent: calf tenderness - Back Exam Back exam: Present: normal inspection, full ROM, tenderness, CVA tenderness (R), muscle spasm, paraspinal tenderness - Neurological Exam Neurological exam: Present: alert, oriented X3, other (Extraocular movements intact. Tongue midline. No facial droop. Facial sensation intact to light t ouch in the V1, V2, V3 distribution bilaterally. 5 and 5 strength in 4 extremities.. Sensation is intact to light touch in 4 extremities.). Absent: motor sensory deficit - Psychiatric Psychiatric exam: Present: anxious - Skin Skin exam: Present: warm, dry, intact, normal color. Absent: rash ED Course - Reevaluation(s) Reevaluation #1: 01/22/19 05:32 Differential diagnosis, including but not limited to: GERD, gastritis, hiatal hernia, pneumonia, pulmonary embolism, DVT, dependent edema, sickle cell crisis, myocarditis, pericarditis Urinary tract infection Assessment and plan: 48-year-old female with recurrent complaint of chest pain, extremity pain, back pain, shortness of breath. Patient low risk by well's criteria, not tachycardic, not hypoxic, d-dimer pending, perc negative EKG is abnormal but morphologically unchanged from prior. Patient has had negative cardiac stress test at this hospital. Troponin 2 ordered, EKG 2 orde red, x-ray of the chest unremarkable. Bilateral lower extremity DVT study ordered, urinalysis ordered. We will treat the patient's pain. Care will be transferred to the oncoming ER physician, Dr. Garry Danielle, to follow up on all the aforementioned diagnostics, and reassess once returned, for final disposition. From a cardiac risk stratification standpoint, the patient is low risk by the heart score, and if no other emergent pathology is identified, could conceivably follow up with an outpatient fire alarm installer for cardiac risk stratification. Suspect lower extremity edema is dependent. Renal insufficiency and hepatic insufficiency are not suggestive at this time. ED Medical Decision Making - Lab Data Result diagrams: 01/22/19 01:40 01/22/19 01:40 Vital Signs 08/07/19 08/07/19 08/07/19 01:48 03:46 04:11 Temperature 98.1 F Pulse Rate 86 93 H Respiratory 16 21 16 Rate Blood Pressure 151/83 140/61 O2 Sat by Pulse 100 97 100 Oximetry 01/22/19 04:23 Temperature Pulse Rate Respiratory Rate Blood Pressure 145/85 O2 Sat by Pulse 97 Oximetry Lab Results 01/22/19 01/22/19 Range/Units 01:40 01:40 WBC 6.1 (4.5-11.0) K/mm3 RBC 3.87 (3.65-5.03) M/mm3 Hgb 8.8 L (10.1-14.3) gm/dl Hct 27.3 L (30.3-42.9) % MCV 70 L (79-97) fl MCH 23 L (28-32) pg MCHC 32 (30-34) % RDW 21.1 H (13.2-15.2) % Plt Count 202 (140-440) K/mm3 Lymph % (Auto) 21.4 (13.4-35.0) % Cloud % (Auto) 9.7 H (0.0-7.3) % Eos % (Auto) 2.8 (0.0-4.3) % Baso % (Auto) 1.1 (0.0-1.8) % Lymph # 1.3 (1.2-5.4) K/mm3 Cloud # 0.6 (0.0-0.8) K/mm3 Eos # 0.2 (0.0-0.4) K/mm3 Baso # 0.1 (0.0-0.1) K/mm3 Seg Neutrophils % 65.0 (40.0-70.0) % Seg Neutrophils # 3.9 (1.8-7.7) K/mm3 Percent Retic 1.79 (0.78-2.58) % Sodium 138 (137-145) mmol/L Potassium 3.7 (3.6-5.0) mmol/L Chloride 106.2 (98-107) mmol/L Carbon Dioxide 20 L (22-30) mmol/L Anion Gap 16 mmol/L BUN 17 (7-17) mg/dL Creatinine 1.5 H (0.7-1.2) mg/dL Estimated GFR 45 ml/min BUN/Creatinine Ratio 11 % Glucose 93 (65-100) mg/dL Calcium 9.0 (8.4-10.2) mg/dL Total Bilirubin 0.30 (0.1-1.2) mg/dL AST 39 (5-40) units/L ALT 39 (7-56) units/L Alkaline Phosphatase 178 H (35-129) units/L Total Protein 8.4 H (6.3-8.2) g/dL Albumin 4.1 (3.9-5) g/dL Albumin/Globulin Ratio 1.0 % - EKG Data -: EKG Interpreted by Mn EKG shows normal: sinus rhythm Rate: normal - EKG Data 01/22/19 05:31 EKG #1 shows sinus rhythm, 60 bpm, left axis deviation, left anterior fascicular block, poor R wave progression, not consistent with ST elevation myocardial infarction, low voltage, the EKG is abnormal, the EKG is unchanged from prior EKG from 10/28/2018. Neither EKG is consistent with ST elevation myocardial infarction. - Radiology Data Radiology results: report reviewed, image reviewed X-ray of the chest is negative for acute disease ED Disposition Clinical Impression: Sickle-cell disease with pain Chest pain Qualifiers: Chest pain type: unspecified Qualified Code(s): R07.9 - Chest pain, unspecified UTI (urinary tract infection) Qualifiers: Urinary tract infection type: acute cystitis Hematuria presence: with hematuria Qualified Code(s): N30.01 - Acute cystitis with hematuria CKD (chronic kidney disease) Qualifiers: Chronic kidney disease stage: unspecified stage Qualified Code(s): N18.9 - Chronic kidney disease, unspecified Disposition: TO HOME OR SELFCARE Condition: Stable Instructions: Chest Pain (ED), Urinary Tract Infection in Women (ED), Dysuria (ED), Sickle Cell Crisis (ED) Additional Instructions: Patient to follow up with primary care in 2-3 days. Patient to follow up with fire alarm installer within 2-3 days. Patient to return to ER if condition worsens. Patient take meds as directed. Patient to continue all other medications. Patient increase water. Patient to rest. Patient to avoid strenuous exercise and activity until cleared by fire alarm installer. Prescriptions: Ciprofloxacin HCl [Ciprofloxacin TAB] 500 mg PO Q12HR 10 Days #20 tab HYDROcodone/APAP 7.5-325 [[place] 7.5/325] 1 each PO Q6HR PRN #12 tablet PRN Reason: Pain Referrals: [facility] [Other] - 2-3 Days RAHEEL JONES MD [Staff Physician] - 2-3 Days <MIKI DANIELLE III - Last Filed: 01/22/19 10:46> ED Review of Systems ROS: Stated complaint: SICKLE CELL Other details as noted in HPI ED Past Medical Hx - Past Medical History Previous Medical History?: Yes ED Course Vital Signs 01/22/19 01/22/19 01/22/19 01:48 03:46 04:11 Temperature 98.1 F Pulse Rate 86 93 H Respiratory 16 21 16 Rate Blood Pressure 151/83 140/61 Blood Pressure [Left] O2 Sat by Pulse 100 97 100 Oximetry 01/22/19 01/22/19 01/22/19 04:23 05:56 05:58 Temperature Pulse Rate 133 H 76 Respiratory 11 L Rate Blood Pressure 145/85 145/85 Blood Pressure 141/78 [Left] O2 Sat by Pulse 97 96 Oximetry 01/22/19 01/22/19 01/22/19 06:00 06:16 06:30 Temperature Pulse Rate 82 76 82 Respiratory 12 12 10 L Rate Blood Pressure 145/85 117/75 117/75 Blood Pressure [Left] O2 Sat by Pulse 98 99 97 Oximetry 01/22/19 01/22/19 01/22/19 06:45 07:01 07:15 Temperature Pulse Rate 84 66 89 Respiratory 18 9 L 16 Rate Blood Pressure 145/85 117/75 117/75 Blood Pressure [Left] O2 Sat by Pulse 98 97 71 L Oximetry 01/22/19 01/22/19 01/22/19 07:31 07:45 08:15 Temperature Pulse Rate 67 62 73 Respiratory 12 11 L 9 L Rate Blood Pressure 117/75 117/75 152/112 Blood Pressure [Left] O2 Sat by Pulse 97 98 Oximetry 01/22/19 01/22/19 01/22/19 08:45 09:55 10:00 Temperature Pulse Rate 79 71 60 Respiratory 17 7 L 7 L Rate Blood Pressure 115/79 108/64 116/83 Blood Pressure [Left] O2 Sat by Pulse 93 94 Oximetry 01/22/19 10:31 Temperature Pulse Rate 63 Respiratory 8 L Rate Blood Pressure 116/83 Blood Pressure [Left] O2 Sat by Pulse 96 [facility] I received signout from previous ER physician, Dr. Marcial. 01/22/19 06:08 Patient is complaining of severe chest pain at an 8 out of 10. Patient will be given another dose of Dilaudid. Patient will also be given antibiotics for her UTI 01/22/19 07:08 Reevaluation #3: Patient states her pain is under control. Patient is resting without complaints in bed. Patient given fluids and antibiotics. I discussed all results with patient. I discussed plan of care with patient. Patient agrees with plan of care and discharge. Patient will be discharged home. Patient stable at discharge. Patient given discharge instructions. Patient voiced understanding of discharge instructions. Patient's information was faxed over to the fire alarm installer for cardiology follow-up within 2 days. 01/22/19 10:40 ED Medical Decision Making - Lab Data Result diagrams: 01/22/19 01:40 01/22/19 01:40 - EKG Data -: EKG Interpreted by Mn EKG shows normal: sinus rhythm, axis, intervals, QRS complexes, ST-T waves Rate: normal - Radiology Data Radiology results: report reviewed, image reviewed DUPLEX DOPPLER LOWER EXTREMITY VEINS, BILATERAL INDICATION: b/l lower ext swelling. TECHNIQUE: Duplex doppler imaging was performed through the veins of both lower extremities using venous compression and other maneuvers. COMPARISON: None available. FINDINGS: Right Common Femoral vein: Negative. Right Femoral vein: Negative. Right Popliteal vein: Negative. Right Calf veins: Negative. Left Common Femoral vein: Negative. Left Femoral vein: Negative. Left Popliteal vein: Negative. Left Calf veins: Negative. Additional findings: None. IMPRESSION: 1. No sonographic evidence for DVT in either lower extremity. - Medical Decision Making Patient is a 48-year-old female presents to the emergency room for sickle cell pain and chest pain. Patient's labs unremarkable. Patient's EKG is unchanged from previous EKGs. Patient's chest x-ray negative. Patient had an ultrasound of the legs which was negative for DVT. Patient given multiple doses of pain medication which finally controlled her pain and patient will be discharged home with pain meds. Patient information faxed over to [facility] [place] for close follow-up for her chest pain. Patient's troponin checked twice and negative. Patient responded well to therapy. Patient's retake count was negative. Patient was originally seen by Dr. Marcial was signed out to me for final disposition and follow up on diagnostic and laboratory studies - Differential Diagnosis chest pain. Sickle cell pain. DVT. UTI Critical care attestation.: If time is entered above; I have spent that time in minutes in the direct care of this critically ill patient, excluding procedure time. ED Disposition Is pt being admited?: No Does the pt Need Aspirin: No Time of Disposition: 10:45
--- NOTE | 2019-01-22 04:39 | XRay Report ---
CHEST 2 VIEWS INDICATION / CLINICAL INFORMATION: cp sob. COMPARISON: 12/31/2018 FINDINGS: SUPPORT DEVICES: None. HEART / MEDIASTINUM: No significant abnormality. LUNGS / PLEURA: No significant pulmonary or pleural abnormality. No pneumothorax. ADDITIONAL FINDINGS: No significant additional findings. IMPRESSION: 1. No acute findings. Signer Name: Ruddy Finn MD Signed: 01/22/2019 4:34 AM Workstation Name: [id number]
[2019-01-22 05:57] LABS: Bacteria,Urine 1+ /HPF (Negative); Bilirubin,Urine NEG (Negative); Blood,Urine LG (Negative); Color,Urine Yellow (Yellow); Mucus,Urine FEW /HPF; Urobilinogen,Urine < 2.0 mg/dL (<2.0)
[2019-01-22] MEDS ORDERED: DILAUDID IV ONE (07:08)
[2019-01-22] MEDS ORDERED: NACL 0.9% 1000 ML 1,000 ML IV ONE (07:09)
[2019-01-22] MEDS ORDERED: ROCEPHIN/NS 1 GM/50 ML 1 GM/50 ML BAG IV ONE (07:10)
[2019-01-22] MEDS ORDERED: BENADRYL IV ONE (08:51)
[2019-01-22] MEDS ORDERED: ZOFRAN IV ONE (08:51)
--- NOTE | 2019-01-22 09:45 | Vascular Lab Report ---
DUPLEX DOPPLER LOWER EXTREMITY VEINS, BILATERAL INDICATION: b/l lower ext swelling. TECHNIQUE: Duplex doppler imaging was performed through the veins of both lower extremities using venous hermes fernando and other maneuvers. COMPARISON: None available. FINDINGS: Right Common Femoral vein: Negative. Right Femoral vein: Negative. Right Popliteal vein: Negative. Right Calf veins: Negative. Left Common Femoral vein: Negative. Left Femoral vein: Negative. Left Popliteal vein: Negative. Left Calf veins: Negative. Additional findings: None. IMPRESSION: 1. No sonographic evidence for DVT in either lower extremity. Signer Name: Samir Tena MD Signed: 01/22/2019 9:41 AM Workstation Name: [id number]
[2019-01-22 11:52] VITALS: BP 123/99
== END 2019-01-22 11:53 | disposition home or self-care (01) ==
LOC: ED 01:23
DX: D57.1 Sickle-cell disease without crisis (principal); N18.9 Chronic kidney disease, unspecified; N39.0 Urinary tract infection, site not specified; R07.89 Other chest pain
CPT/HCPCS: 36415; 71046; 80053; 81001; 82550; 83735; 84484; 85025; 85045; 85379; 87086; 93005; 93010; 93970; 99285; J0696; J1170; J1200; J2405; J7030; 87076; 87186; Q0162

== ENCOUNTER 2019-05-16 21:28 | Emergency (ER) | payer SELFPAY ==
--- NOTE | 2019-05-16 22:21 | Event Note ---
ED Screening Note Date of service: 05/16/19 ED Screening Note: This initial assessment/diagnostic orders/clinical plan/treatment(s) is/are subject to change based on patients health status, clinical progression and re- assessment by fellow clinical providers in the ED. Further treatment and workup at subsequent clinical providers discretion. Patient/guardian urged not to elope from the ED as their condition may be serious if not clinically assessed and managed. Initial orders include: 48yo female states that she has CP, back pain, and bilateral leg pain that began 3 days ago. Pt states that her pain feels like on of her sickle cell crises.
[2019-05-16 22:43] LABS: Basophils # (Auto) 0.1 K/mm3 (0.0-0.1); Basophils % (Auto) 1.1 % (0.0-1.8); Eosinophils # (Auto) 0.3 K/mm3 (0.0-0.4); Eosinophils % (Auto) 5.4 % (0.0-4.3); Hematocrit 27.8 % (30.3-42.9); Lymphocytes # (Auto) 1.5 K/mm3 (1.2-5.4); Lymphocytes % (Auto) 24.1 % (13.4-35.0); Mean Corpuscular HGB Conc 33 % (30-34); Mean Corpuscular Volume 72 fl (79-97); Monocytes # (Auto) 0.4 K/mm3 (0.0-0.8); Monocytes % (Auto) 7.3 % (0.0-7.3); Platelet Count 205 K/mm3 (140-440); Red Blood Count 3.87 M/mm3 (3.65-5.03)
[2019-05-16 22:44] LABS: Red Cell Distribution Width 21.6 % (13.2-15.2)
[2019-05-16] MEDS ORDERED: ONDANSETRON 4 MG/2 ML INJ IV ONE (22:52)
[2019-05-16] MEDS ORDERED: diphenhydrAMINE 50 MG/ML VIAL IV ONE (22:52)
[2019-05-16] MEDS ORDERED: MORPHINE 4 MG/1 ML INJ IV ONE (22:52)
[2019-05-16 22:55] LABS: Albumin 4.3 g/dL (3.9-5); Calcium 8.5 mg/dL (8.4-10.2)
--- NOTE | 2019-05-16 22:58 | Emergency Department Report ---
ED General Adult HPI - General Chief complaint: Chest Pain Stated complaint: SOB CHEST PAIN NAUSEAM SICKLE CELL PAIN Time Seen by Provider: 05/16/19 22:51 Source: patient Mode of arrival: Ambulatory Limitations: No Limitations - History of Present Illness Initial comments: CC: "Sickle cell pain crisis" HPI: Mrs. Nieto is a 48-year-old female with history of sickle cell disease, renal cell carcinoma in remission, hypothyroidism, atrial fibrillation, chronic kidney disease, uterine fibroids, who presents with pain crisis. Mrs. Nieto has chest pain dull. Constant for the past several days. Also has joint pain, lower leg pain she had low-grade temperature 100F at home 2 days ago. Denies cough. Positive nausea. Due to lack of insurance, does not have a allocations clerk for primary care physician. -: Gradual, days(s) (2-3) Location: chest, left, right, lower extremity Severity scale (0 -10): 7 Quality: aching Consistency: constant Improves with: none Worsens with: none Associated Symptoms: other (low-grade fever at home) - Related Data Previous Rx's Medication Instructions Recorded Last Taken Type Folic Acid 1 mg PO QDAY #30 capsule 02/05/18 Unknown Rx Levothyroxine Sodium [Synthroid] 175 mcg PO QDAY #20 tab 07/07/18 Unknown Rx Ciprofloxacin HCl [Ciprofloxacin 500 mg PO Q12HR 10 Days #20 tab 01/22/19 Unknown Rx TAB] HYDROcodone/APAP 7.5-325 [[place] 1 each PO Q6HR PRN #12 tablet 01/22/19 Unknown Rx 7.5/325] oxyCODONE /ACETAMINOPHEN [Percocet 1 tab PO Q6HR PRN #15 tablet 03/08/19 Unknown Rx 5/325] Allergies Allergy/AdvReac Type Severity Reaction Status Date / Time promethazine HCl Allergy Unknown Verified 10/02/18 03:30 [From Phenergan] quetiapine [From Seroquel] Allergy Unknown Verified 10/28/18 21:23 ketorolac [From Toradol] AdvReac Unknown Verified 10/02/18 03:30 NSAIDS (Non-Steroidal AdvReac Unknown Verified 12/17/16 09:15 Anti-Inflamma tramadol AdvReac Unknown Verified 12/17/16 09:14 ED Review of Systems ROS: Stated complaint: SOB CHEST PAIN NAUSEAM SICKLE CELL PAIN Other details as noted in HPI Comment: All other systems reviewed and negative Constitutional: fever Respiratory: denies: cough Cardiovascular: chest pain Musculoskeletal: myalgia ED Past Medical Hx - Past Medical History Previous Medical History?: Yes Hx Congestive Heart Failure: No Hx Diabetes: No Hx Sickle Cell Disease: Yes Hx Asthma: No Hx COPD: No Additional medical history: Renal cell carcinoma,hypothyroidism. A-Fib. Stage 2 kidney Disease. fibroids - Surgical History Past Surgical History?: Yes Hx Cholecystectomy: Yes Additional Surgical History: Removal left kidney, Thyroidectomy. x3, left ovary removal - Social History Smoking Status: Never Smoker Substance Use Type: Alcohol - Medications Home Medications: Home Medications Medication Instructions Recorded Confirmed Last Taken Type Folic Acid 1 mg PO QDAY #30 capsule 02/05/18 Unknown Rx Levothyroxine Sodium [Synthroid] 175 mcg PO QDAY #20 tab 07/07/18 Unknown Rx Ciprofloxacin HCl [Ciprofloxacin 500 mg PO Q12HR 10 Days #20 tab 01/22/19 Unknown Rx TAB] HYDROcodone/APAP 7.5-325 [[place] 1 each PO Q6HR PRN #12 tablet 01/22/19 Unknown Rx 7.5/325] oxyCODONE /ACETAMINOPHEN [Percocet 1 tab PO Q6HR PRN #15 tablet 03/08/19 Unknown Rx 5/325] ED Physical Exam - General Limitations: No Limitations General appearance: alert, in no apparent distress - Head Head exam: Present: atraumatic, normocephalic - Eye Eye exam: Present: normal appearance - ENT ENT exam: Present: mucous membranes moist - Neck Neck exam: Present: normal inspection, full ROM - Respiratory Respiratory exam: Present: normal lung sounds bilaterally. Absent: respiratory distress, wheezes, rales, rhonchi - Cardiovascular Cardiovascular Exam: Present: regular rate, normal rhythm, normal heart sounds. Absent: systolic murmur, diastolic murmur, rubs, gallop - GI/Abdominal GI/Abdominal exam: Present: soft, normal bowel sounds. Absent: distended, tenderness, guarding, rebound - Extremities Exam Extremities exam: Present: normal inspection - Neurological Exam Neurological exam: Present: alert, oriented X3 - Psychiatric Psychiatric exam: Present: normal affect, normal mood - Skin Skin exam: Present: warm, dry, intact, normal color. Absent: rash ED Course Vital Signs 05/16/19 05/16/19 05/16/19 21:45 22:00 23:26 Temperature 98.4 F 98.3 F Pulse Rate 71 79 Respiratory 14 16 Rate Blood Pressure 131/79 121/78 [Left] O2 Sat by Pulse 98 99 Oximetry ED Medical Decision Making - Lab Data Result diagrams: 05/16/19 22:25 05/16/19 22:25 - EKG Data 05/16/19 23:01 EKG obtained 2148 Normal sinus rhythm rate 60 beats a minute normal axis normal intervals poor R wave progression in the anterior leads no ST-T signs ischemia no ST elevation - Medical Decision Making 1. Mrs. Nieto presents with chest pain recurrent. Non-cardiac without s/s of PE, PNA or ACS. Diffuse joint pain typical for sickle cell disease pain santosh is. NO fever here in the ED. Anemia at baseline. 2. Opioid dependence: I have reviewed the [place] Prescription Drug Monitoring Database. Mrs. Nieto has received 23 opioid prescriptions from 23 providers from 13 pharmacies over the past year. I provided prescription for opiod type medication to Mrs. Nieto 2 months ago. I explained to Mrs. Nieto that I am unable to provide a second prescription. Given a referral to satisfy clinic. Discharged home. Vital Signs - 24 hr 05/16/19 05/16/19 05/16/19 21:45 22:00 23:26 Temperature 98.4 F 98.3 F Pulse Rate 71 79 Respiratory 14 16 Rate Blood Pressure 131/79 121/78 [Left] O2 Sat by Pulse 98 99 Oximetry Critical care attestation.: If time is entered above; I have spent that time in minutes in the direct care of this critically ill patient, excluding procedure time. ED Disposition Clinical Impression: Sickle cell anemia with crisis, Chest pain, Sickle-cell disease with pain Disposition: DC-01 TO HOME OR SELFCARE Is pt being admited?: No Does the pt Need Aspirin: No Condition: Stable Instructions: Chest Pain (ED) Referrals: LENI HAZEL MD [Primary Care Provider] - 3-5 Days
[2019-05-16] MEDS ORDERED: D5W/0.2% NACL 1,000 ML IV SCH (23:00)
[2019-05-16 23:28] VITALS: BP 121/78
[2019-05-17] MEDS ORDERED: oxyCODONE /ACETAMINOPHEN 5-325MG TAB PO ONE (00:22)
[2019-05-17] MEDS ORDERED: MORPHINE 4 MG/1 ML INJ IV ONE (00:22)
== END 2019-05-17 01:13 | disposition home or self-care (01) ==
LOC: ED 21:28
DX: D57.00 Hb-SS disease with crisis, unspecified (principal); E03.9 Hypothyroidism, unspecified; Z90.89 Acquired absence of other organs; Z79.899 Other long term (current) drug therapy; Z88.1 Allergy status to other antibiotic agents; Z88.6 Allergy status to analgesic agent; Z88.8 Allergy status to other drugs, medicaments and biological substances
CPT/HCPCS: 36415; 80053; 85025; 85045; 93005; 93010; 96374; 96375; 96376; 99283; J1200; J2270; J2405

== ENCOUNTER 2019-08-16 07:12 | Emergency (ER) | payer SELFPAY ==
[2019-08-16] MEDS ORDERED: MORPHINE 2 MG/1 ML INJ IV ONE (09:46)
[2019-08-16] MEDS ORDERED: dexAMETHasone 20 MG/5 ML VIAL IV ONE (09:46)
[2019-08-16] MEDS ORDERED: SODIUM CHLORIDE 0.9% 1000 ML 1,000 ML IV ONE (09:46)
--- NOTE | 2019-08-16 09:53 | Emergency Department Report ---
ED General Adult HPI - General Chief complaint: Sickle Cell Crisis Stated complaint: CP/SOB/SICKLE CELL/BACK PAIN/N/V Time Seen by Provider: 08/16/19 09:44 Source: patient Mode of arrival: Ambulatory Limitations: No Limitations - History of Present Illness Initial comments: This is a 48-year-old female with history of sickle cell anemia currently taking hydroxyurea and folic acid daily presents to the ED complaining of sickle cell related pain in her lower back radiating down her bilateral thighs. Patient states this has been going on for about a week and is getting worse. Patient states that pain is intermittent aching in nature in her joints causing her to be fatigued more than usual. Patient does state that she started to experience some pain in her chest with some shortness of breath. Patient does admit that she has been having a dry intermittent cough for the past week She denies fever/chills/nausea vomiting. - Related Data Previous Rx's Medication Instructions Recorded Last Taken Type Folic Acid 1 mg PO QDAY #30 capsule 02/05/18 Unknown Rx Levothyroxine Sodium [Synthroid] 175 mcg PO QDAY #20 tab 07/07/18 Unknown Rx Ciprofloxacin HCl [Ciprofloxacin 500 mg PO Q12HR 10 Days #20 tab 01/22/19 Unknown Rx TAB] oxyCODONE /ACETAMINOPHEN [Percocet 1 tab PO Q6HR PRN #15 tablet 03/08/19 Unknown Rx 5/325] HYDROcodone/APAP 7.5-325 [[place] 1 each PO Q6HR PRN #12 tablet 08/16/19 Unknown Rx 7.5-325 mg TAB] Allergies Allergy/AdvReac Type Severity Reaction Status Date / Time promethazine HCl Allergy Unknown Verified 10/02/18 03:30 [From Phenergan] quetiapine [From Seroquel] Allergy Unknown Verified 10/28/18 21:23 ketorolac [From Toradol] AdvReac Unknown Verified 10/02/18 03:30 NSAIDS (Non-Steroidal AdvReac Unknown Verified 12/17/16 09:15 Anti-Inflamma tramadol AdvReac Unknown Verified 12/17/16 09:14 ED Review of Systems ROS: Stated complaint: CP/SOB/SICKLE CELL/BACK PAIN/N/V Other details as noted in HPI Comment: All other systems reviewed and negative ED Past Medical Hx - Past Medical History Hx Congestive Heart Failure: No Hx Diabetes: No Hx Sickle Cell Disease: Yes Hx Asthma: No Hx COPD: No Additional medical history: Renal cell carcinoma,hypothyroidism. A-Fib. Stage 2 kidney Disease. fibroids - Surgical History Hx Cholecystectomy: Yes Additional Surgical History: Removal left kidney, Thyroidectomy. x3, left ovary removal - Social History Smoking Status: Never Smoker Substance Use Type: Alcohol - Medications Home Medications: Home Medications Medication Instructions Recorded Confirmed Last Taken Type Folic Acid 1 mg PO QDAY #30 capsule 02/05/18 Unknown Rx Levothyroxine Sodium [Synthroid] 175 mcg PO QDAY #20 tab 07/07/18 Unknown Rx Ciprofloxacin HCl [Ciprofloxacin 500 mg PO Q12HR 10 Days #20 tab 01/22/19 Unknown Rx TAB] oxyCODONE /ACETAMINOPHEN [Percocet 1 tab PO Q6HR PRN #15 tablet 03/08/19 Unknown Rx 5/325] HYDROcodone/APAP 7.5-325 [[place] 1 each PO Q6HR PRN #12 tablet 08/16/19 Unknown Rx 7.5-325 mg TAB] ED Physical Exam - General Limitations: No Limitations General appearance: alert, in no apparent distress - Head Head exam: Present: atraumatic, normocephalic - Eye Eye exam: Present: normal appearance - ENT ENT exam: Present: mucous membranes moist - Neck Neck exam: Present: normal inspection - Respiratory Respiratory exam: Present: normal lung sounds bilaterally. Absent: respiratory distress - Cardiovascular Cardiovascular Exam: Present: regular rate, normal rhythm. Absent: systolic murmur, diastolic murmur, rubs, gallop - GI/Abdominal GI/Abdominal exam: Present: soft, normal bowel sounds - Extremities Exam Extremities exam: Present: normal inspection, full ROM - Back Exam Back exam: Present: normal inspection, full ROM. Absent: CVA tenderness (R), CVA tenderness (L) - Neurological Exam Neurological exam: Present: alert, oriented X3 - Psychiatric Psychiatric exam: Present: normal affect, normal mood - Skin Skin exam: Present: warm, dry, intact, normal color. Absent: rash ED Course Vital Signs 08/16/19 08/16/19 08/16/19 07:29 10:33 11:15 Temperature 97.9 F Pulse Rate 67 72 Respiratory 18 18 18 Rate Blood Pressure 168/98 Blood Pressure 151/88 [Right] O2 Sat by Pulse 98 98 Oximetry 08/16/19 11:42 Temperature Pulse Rate Respiratory 18 Rate Blood Pressure Blood Pressure [Right] O2 Sat by Pulse 99 Oximetry ED Medical Decision Making - Lab Data Result diagrams: 08/16/19 10:26 08/16/19 10:26 - Radiology Data Radiology results: report reviewed, image reviewed FINDINGS: SUPPORT DEVICES: None. HEART / MEDIASTINUM: No significant abnormality. LUNGS / PLEURA: No significant pulmonary or pleural abnormality. No pneumothorax. ADDITIONAL FINDINGS: No significant additional findings. IMPRESSION: 1. No acute findings. Signer Name: Rupesh Jean MD Signed: 08/16/2019 10:07 AM Workstation Name: [id number] Transcribed By: BC Dictated By: Rupesh Jean MD Electronically Authenticated By: Rupesh Jean MD Signed Date/Time: 08/16/19 1007 - Medical Decision Making 48-year-old female presents with acute pain secondary to sickle cell disease. CBC and reticulocytes completed in ED. Within normal findings. Patient received fluids, pain medication in the ED. Chest x-ray was normal no acute findings. Discussed with patient to follow-up with primary care physician. Discussed with patient to continue taking her hydroxyurea and folic acid. Discussed with patient to stay out of the cold. Upon reevaluation patient reports feeling moderately better Vital signs are normal patient is in no acute distress Critical care attestation.: If time is entered above; I have spent that time in minutes in the direct care of this critically ill patient, excluding procedure time. 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 Take all your medications as you've been prescribed. If you have any worsening symptoms or develop new symptoms please return to ED immediately. Prescriptions: HYDROcodone/APAP 7.5-325 [[place] 7.5-325 mg TAB] 1 each PO Q6HR PRN #12 tablet PRN Reason: Pain Referrals: PRIMARY CARE, [Primary Care Provider] - 3-5 Days [facility] [Outside] - 3-5 Days [facility] [Outside] - 3-5 Days Forms: Accompanied Note, Work/School Release Form(ED) Time of Disposition: 11:14
--- NOTE | 2019-08-16 10:11 | XRay Report ---
CHEST 1 VIEW INDICATION / CLINICAL INFORMATION: MAIN: CHEST pain/sob. COMPARISON: 03/08/2019 FINDINGS: SUPPORT DEVICES: None. HEART / MEDIASTINUM: No significant abnormality. LUNGS / PLEURA: No significant pulmonary or pleural abnormality. No pneumothorax. ADDITIONAL FINDINGS: No significant additional findings. IMPRESSION: 1. No acute findings. Signer Name: Rupesh Jean MD Signed: 08/16/2019 10:07 AM Workstation Name: [id number]
[2019-08-16 10:48] LABS: Hematocrit 27.7 % (30.3-42.9); Hemoglobin 9.2 gm/dl (10.1-14.3); Mean Corpuscular HGB Conc 33 % (30-34); Mean Corpuscular Volume 73 fl (79-97); Platelet Count 190 K/mm3 (140-440); Red Blood Count 3.79 M/mm3 (3.65-5.03)
[2019-08-16 10:49] LABS: Red Cell Distribution Width 21.6 % (13.2-15.2)
[2019-08-16 11:29] LABS: Calcium 9.4 mg/dL (8.4-10.2)
[2019-08-16 11:51] VITALS: BP 151/88
== END 2019-08-16 11:32 | disposition home or self-care (01) ==
LOC: ED 07:12
DX: D57.819 Other sickle-cell disorders with crisis, unspecified (principal); Z88.6 Allergy status to analgesic agent; Z88.8 Allergy status to other drugs, medicaments and biological substances; Z98.890 Other specified postprocedural states; Z90.89 Acquired absence of other organs; Z79.899 Other long term (current) drug therapy
CPT/HCPCS: 36415; 71046; 80048; 85025; 85045; 93005; 93010; 96374; 96375; 99284; J1100; J2270; J7030

== ENCOUNTER 2019-12-03 12:02 | Emergency (ER) | payer MEDICAID ==
[2019-12-03 12:29] VITALS: BP 177/77
--- NOTE | 2019-12-03 12:31 | Emergency Department Report ---
Blank Doc - Documentation Documentation: 49-year-old female that presents with generalized body aches w/ sickle cell cr rahul. This initial assessment/diagnostic orders/clinical plan/treatment(s) is/are subject to change based on patient's health status, clinical progression and re- assessment by fellow clinical providers in the ED. Further treatment and workup at subsequent clinical providers discretion. Patient/guardians urged not to elope from the ED as their condition may be serious if not clinically assessed and managed. Initial orders include: 1- Patient sent to [facility] for further evaluation and treatment 2- labs 3- UA
[2019-12-03 13:01] LABS: Bilirubin,Urine NEG (Negative); Blood,Urine NEG (Negative); Color,Urine Yellow (Yellow); Mucus,Urine FEW /HPF; Protein,Urine <15 mg/dL mg/dL (Negative); Urobilinogen,Urine < 2.0 mg/dL (<2.0); WBC,Urine < 1.0 /HPF (0.0-6.0)
[2019-12-03 13:04] LABS: HCG Qualitative,Urine Negative (Negative)
[2019-12-03 13:16] LABS: Basophils % (Auto) 0.9 % (0.0-1.8); Eosinophils # (Auto) 0.1 K/mm3 (0.0-0.4); Hemoglobin 8.4 gm/dl (10.1-14.3); Lymphocytes # (Auto) 1.2 K/mm3 (1.2-5.4); Lymphocytes % (Auto) 24.3 % (13.4-35.0); Mean Corpuscular HGB Conc 33 % (30-34); Mean Corpuscular Volume 71 fl (79-97); Monocytes # (Auto) 0.4 K/mm3 (0.0-0.8); Monocytes % (Auto) 8.2 % (0.0-7.3); Platelet Count 192 K/mm3 (140-440); Red Blood Count 3.65 M/mm3 (3.65-5.03)
[2019-12-03 13:17] LABS: Red Cell Distribution Width 21.9 % (13.2-15.2)
[2019-12-03 13:36] LABS: Alanine Aminotransferase 24 units/L (7-56); Albumin 4.5 g/dL (3.9-5); BUN/Creatinine Ratio 16; Blood Urea Nitrogen 18 mg/dL (7-17); Calcium 9.9 mg/dL (8.4-10.2); Hemolysis Index 35
== END 2019-12-03 16:27 | disposition left against medical advice (07) ==
LOC: ED 12:02
DX: R31.9 Hematuria, unspecified (principal); R00.2 Palpitations; Z53.21 Procedure and treatment not carried out due to patient leaving prior to being seen by health care provider
CPT/HCPCS: 36415; 80053; 81001; 81025; 85025; 85045

== ENCOUNTER 2020-02-21 01:57 | Emergency (ER) | payer MEDICAID ==
[2020-02-21 02:11] VITALS: BP 127/80
[2020-02-21 03:15] LABS: Bilirubin,Urine NEG (Negative); Blood,Urine LG (Negative); Color,Urine Yellow (Yellow); Mucus,Urine FEW /HPF; Protein,Urine <15 mg/dL mg/dL (Negative)
[2020-02-21 03:49] LABS: Basophils # (Auto) 0.1 K/mm3 (0.0-0.1); Basophils % (Auto) 1.2 % (0.0-1.8); Eosinophils # (Auto) 0.3 K/mm3 (0.0-0.4); Eosinophils % (Auto) 3.7 % (0.0-4.3); Hematocrit 31.4 % (30.3-42.9); Hemoglobin 10.3 gm/dl (10.1-14.3); Lymphocytes # (Auto) 1.5 K/mm3 (1.2-5.4); Lymphocytes % (Auto) 20.2 % (13.4-35.0); Mean Corpuscular HGB Conc 33 % (30-34); Monocytes # (Auto) 0.6 K/mm3 (0.0-0.8); Platelet Count 208 K/mm3 (140-440); Red Blood Count 4.55 M/mm3 (3.65-5.03)
[2020-02-21 03:55] LABS: Mean Corpuscular Volume 69 fl (79-97); Red Cell Distribution Width 20.4 % (13.2-15.2)
[2020-02-21 04:07] LABS: Albumin 4.4 g/dL (3.9-5)
--- NOTE | 2020-02-21 04:30 | Emergency Department Report ---
ED General Adult HPI - General Chief complaint: Sickle Cell Crisis Stated complaint: SICKLE CELL CRISIS PUI?: No Time Seen by Provider: 02/21/20 04:10 Source: patient Mode of arrival: Ambulatory Limitations: No Limitations - History of Present Illness Initial comments: Patient is a 49-year-old female that presents emergency room with complaints of sickle cell crisis, leg pain, dysuria lower back pain.. Patient states her symp toms started 2 days ago. Patient states she always has her sickle cell crisis in her legs. Patient states her pain is a 10 out of 10. Patient states her [id number] and prescription medications are not working. Patient states that her pain is better with rest and worse with movement. Patient states her dysuria is not every time she urinates. Patient denies fever and chills. Patient denies abdominal pain. Patient denies chest pain or shortness of breath. Patient denies cough. Patient denies recent travel. Patient denies recent international travel. Patient denies exposure to the novel coronavirus. Patient denies sick contacts. Patient denies fever and chills. Patient denies cough. Patient denies diarrhea. Patient denies coming in contact with anybody with symptoms of the novel coronavirus. Patient states she has sickle cell but does not see a upper tier. Patient states she is never seen a upper tier. -: Sudden Location: back, lower extremity Severity scale (0 -10): 10 Quality: stabbing Consistency: constant Improves with: rest Worsens with: movement Associated Symptoms: denies other symptoms. denies: confusion, chest pain, cough, diaphoresis, fever/chills, headaches, loss of appetite, malaise, nausea/vomiting, rash, seizure, shortness of breath, syncope, weakness - Related Data Previous Rx's Medication Instructions Recorded Last Taken Type Folic Acid 1 mg PO QDAY #30 capsule 02/05/18 Unknown Rx Levothyroxine Sodium [Synthroid] 175 mcg PO QDAY #20 tab 07/07/18 Unknown Rx oxyCODONE /ACETAMINOPHEN [Percocet 1 tab PO Q6HR PRN #15 tablet 03/08/19 Unknown Rx 5/325] HYDROcodone/APAP 7.5-325 [[place] 1 each PO Q6HR PRN #12 tablet 08/16/19 Unknown Rx 7.5-325 mg TAB] Ciprofloxacin HCl [Ciprofloxacin 500 mg PO Q12HR 10 Days #20 tab 02/21/20 Unknown Rx TAB] Ondansetron [Zofran Odt] 4 mg PO Q6HR PRN #20 tab.rapdis 02/21/20 Unknown Rx Allergies Allergy/AdvReac Type Severity Reaction Status Date / Time promethazine HCl Allergy Unknown Verified 10/02/18 03:30 [From Phenergan] quetiapine [From Seroquel] Allergy Unknown Verified 10/28/18 21:23 ketorolac [From Toradol] AdvReac Unknown Verified 10/02/18 03:30 NSAIDS (Non-Steroidal AdvReac Unknown Verified 12/17/16 09:15 Anti-Inflamma tramadol AdvReac Unknown Verified 12/17/16 09:14 ED Review of Systems ROS: Stated complaint: SICKLE CELL CRISIS Other details as noted in HPI Constitutional: denies: chills, fever Eyes: denies: eye pain, eye discharge, vision change ENT: denies: ear pain, throat pain Respiratory: denies: cough, shortness of breath, wheezing Cardiovascular: denies: chest pain, palpitations Endocrine: no symptoms reported Gastrointestinal: denies: abdominal pain, nausea, diarrhea Genitourinary: dysuria. denies: urgency, discharge Musculoskeletal: denies: back pain, joint swelling, arthralgia Skin: denies: rash, lesions Neurological: denies: headache, weakness, paresthesias Psychiatric: denies: anxiety, depression Hematological/Lymphatic: denies: easy bleeding, easy bruising ED Past Medical Hx - Past Medical History Previous Medical History?: Yes Hx Congestive Heart Failure: No Hx Diabetes: No Hx Renal Disease: Yes (ckd2) Hx Sickle Cell Disease: Yes Hx Asthma: No Hx COPD: No Additional medical history: Renal cell carcinoma,hypothyroidism. A-Fib. Stage 2 kidney Disease. fibroids - Surgical History Past Surgical History?: Yes Hx Cholecystectomy: Yes Additional Surgical History: Removal left kidney, Thyroidectomy. x3, left ovary removal - Family History Family history: no significant - Social History Smoking Status: Never Smoker Substance Use Type: None - Medications Home Medications: Home Medications Medication Instructions Recorded Confirmed Last Taken Type Folic Acid 1 mg PO QDAY #30 capsule 02/05/18 Unknown Rx Levothyroxine Sodium [Synthroid] 175 mcg PO QDAY #20 tab 07/07/18 Unknown Rx oxyCODONE /ACETAMINOPHEN [Percocet 1 tab PO Q6HR PRN #15 tablet 03/08/19 Unknown Rx 5/325] HYDROcodone/APAP 7.5-325 [[place] 1 each PO Q6HR PRN #12 tablet 08/16/19 Unknown Rx 7.5-325 mg TAB] Ciprofloxacin HCl [Ciprofloxacin 500 mg PO Q12HR 10 Days #20 tab 02/21/20 Unknown Rx TAB] Ondansetron [Zofran Odt] 4 mg PO Q6HR PRN #20 tab.rapdis 02/21/20 Unknown Rx ED Physical Exam - General Limitations: No Limitations General appearance: alert, in no apparent distress - Head Head exam: Present: atraumatic, normocephalic - Eye Eye exam: Present: normal appearance - ENT ENT exam: Present: mucous membranes moist - Neck Neck exam: Present: normal inspection - Respiratory Respiratory exam: Present: normal lung sounds bilaterally. Absent: respiratory distress - Cardiovascular Cardiovascular Exam: Present: regular rate, normal rhythm. Absent: systolic murmur, diastolic murmur, rubs, gallop - GI/Abdominal GI/Abdominal exam: Present: soft, normal bowel sounds - Extremities Exam Extremities exam: Present: normal inspection - Back Exam Back exam: Present: normal inspection - Neurological Exam Neurological exam: Present: alert, oriented X3 - Psychiatric Psychiatric exam: Present: normal affect, normal mood - Skin Skin exam: Present: warm, dry, intact, normal color. Absent: rash ED Course Vital Signs 02/21/20 02:10 Temperature 98.4 F Pulse Rate 73 Respiratory 20 Rate Blood Pressure 127/80 O2 Sat by Pulse 100 Oximetry - Reevaluation(s) Reevaluation #1: I discussed all results and clinical findings with patient. I discussed plan of care with patient. Patient agrees with plan of care. Patient is stable for discharge. Patient will be discharged home. Patient given discharge instructions. Patient voiced understanding of discharge instructions. 02/21/20 04:31 ED Medical Decision Making - Lab Data Result diagrams: 02/21/20 02:52 02/21/20 02:52 - Medical Decision Making Patient is a 49-year-old female that presents emergency room with complaints of sickle cell crisis, leg pain, back pain, dysuria. Patient had labs and were essentially unremarkable except for CKD and UTI. Patient is retake count is normal. Patient is stable for discharge. Patient is not currently in sickle cell crisis. Patient does not require further emergency medical services. Patient will be given Zofran and antibiotics. Patient will need to take Tylenol for her pain. - Differential Diagnosis Aqua cell crisis, leg pain, back pain, back strain. dysuria, uti Critical care attestation.: If time is entered above; I have spent that time in minutes in the direct care of this critically ill patient, excluding procedure time. ED Disposition Clinical Impression: Dysuria Sickle cell anemia Qualifiers: Sickle-cell associated disorders: without crisis Qualified Code(s): D57.1 - Sickle-cell disease without crisis Back pain Qualifiers: Back pain location: low back pain Chronicity: acute Back pain laterality: bilateral Sciatica presence: without sciatica Qualified Code(s): M54.5 - Low back pain UTI (urinary tract infection) Qualifiers: Urinary tract infection type: acute cystitis Hematuria presence: with hematuria Qualified Code(s): N30.01 - Acute cystitis with hematuria CKD (chronic kidney disease) Qualifiers: Chronic kidney disease stage: unspecified stage Qualified Code(s): N18.9 - Chronic kidney disease, unspecified Disposition: TO HOME OR SELFCARE Is pt being admited?: No Does the pt Need Aspirin: No Condition: Stable Instructions: Urinary Tract Infection in Women (ED), Dysuria (ED) Additional Instructions: Patient to follow-up with primary care in 2 to 3 days. Patient to follow-up with upper tier in 2 to 3 days. Patient to rest. Patient to increase water. Patient to avoid strenuous exercise or heavy lifting until cleared by [facility] care. Patient to take Tylenol as needed for pain. Patient to take meds as directed. Patient to return to the ER if condition worsens, changes or new symptoms arise. Prescriptions: Ciprofloxacin HCl [Ciprofloxacin TAB] 500 mg PO Q12HR 10 Days #20 tab Ondansetron [Zofran Odt] 4 mg PO Q6HR PRN #20 tab.rapdis PRN Reason: Nausea And Vomiting Referrals: LENI HAZEL MD [Primary Care Provider] - 2-3 Days Time of Disposition: 04:36
== END 2020-02-21 05:07 | disposition home or self-care (01) ==
LOC: ED 01:57
DX: N39.0 Urinary tract infection, site not specified (principal); N18.9 Chronic kidney disease, unspecified; M54.5 Low back pain; D57.1 Sickle-cell disease without crisis; R30.0 Dysuria; Z90.49 Acquired absence of other specified parts of digestive tract; Z90.89 Acquired absence of other organs; Z98.890 Other specified postprocedural states; Z79.2 Long term (current) use of antibiotics; Z79.899 Other long term (current) drug therapy; Z88.8 Allergy status to other drugs, medicaments and biological substances
CPT/HCPCS: 36415; 80053; 81001; 85025; 85045

== ENCOUNTER 2020-04-21 19:48 | Emergency (ER) | payer MEDICAID ==
--- NOTE | 2020-04-21 20:40 | Event Note ---
ED Screening Note ED Screening Note: sick cell pain that began three days ago states began having dysuria two days ago no fever +diarrhea nausea no abd pain no vaginal discharge or irritation hx of kidney cancer had a nephrectomy in 2007, has CKD stage 2, afib allergy:seroquel, phenergan, toradol, tramadol, IV contrast, NSAIDs, ciprofloxac in IV LNMP: 04/17/2020 This initial assessment/diagnostic orders/clinical plan/treatment(s) is/are subject to change based on patients health status, clinical progression and re- assessment by fellow clinical providers in the ED. Further treatment and workup at subsequent clinical providers discretion. Patient/guardian urged not to elope from the ED as their condition may be serious if not clinically assessed and managed. Initial orders include: labs, UA, urine preg
[2020-04-21] MEDS ORDERED: HYDROmorphone 2 MG/1 ML INJ IV ONE (22:07)
[2020-04-21] MEDS ORDERED: diphenhydrAMINE 50 MG/ML VIAL IV ONE (22:07)
[2020-04-21] MEDS ORDERED: ONDANSETRON 4 MG/2 ML INJ IV ONE (22:07)
--- NOTE | 2020-04-21 22:12 | Emergency Department Report ---
ED General Adult HPI - General Chief complaint: Sickle Cell Crisis Stated complaint: SICKLE CELL PAIN, NAUSEA, AND PAIN WHILE URINATING PUI?: No Time Seen by Provider: 04/21/20 20:38 Source: patient Mode of arrival: Ambulatory Limitations: No Limitations - History of Present Illness Initial comments: Patient is a 49-year-old female that presents emergency room with complaints of sickle cell pain, back pain, leg pain, arthralgias, dysuria, nausea. Patient denies vomiting. Patient states her symptoms are worsening. Patient states that her burning with urination and painful urination started yesterday. Patient states her sickle cell pain and nausea started 4 days ago. Patient states that her symptoms are worsening. Patient states her pain is a 10 out of 10. Patient states the pain is better with rest and worse with palpation and movement. Patient denies fever and chills. Patient denies chest pain. Patient denies shortness of breath. Patient denies cough. Patient denies abdominal pain. Patient denies recent travel. Patient denies recent international travel. Patient denies exposure to the novel coronavirus. Patient denies sick contacts. Patient denies fever and chills. Patient denies cough. Patient denies diarrhea. Patient denies coming in contact with anybody with symptoms of the novel coronavirus. -: Sudden Location: back, upper extremity, lower extremity Radiation: non-radiation Severity scale (0 -10): 10 Quality: stabbing Consistency: constant Improves with: rest Worsens with: movement Associated Symptoms: denies: confusion, chest pain, cough, diaphoresis, fever/chills, headaches, loss of appetite, malaise, rash, seizure, shortness of breath, syncope, weakness Treatments Prior to Arrival: none - Related Data Previous Rx's Medication Instructions Recorded Last Taken Type Folic Acid 1 mg PO QDAY #30 capsule 02/05/18 Unknown Rx Levothyroxine Sodium [Synthroid] 175 mcg PO QDAY #20 tab 07/07/18 Unknown Rx oxyCODONE /ACETAMINOPHEN [Percocet 1 tab PO Q6HR PRN #15 tablet 03/08/19 Unknown Rx 5/325] Ciprofloxacin HCl [Ciprofloxacin 500 mg PO Q12HR 10 Days #20 tab 02/21/20 Unknown Rx TAB] HYDROcodone/APAP 7.5-325 [[place] 1 each PO Q6HR PRN #5 tablet 04/22/20 Unknown Rx 7.5-325 mg TAB] Ondansetron [Zofran ODT TAB] 4 mg PO Q6HR PRN #20 tab.rapdis 04/22/20 Unknown Rx Allergies Allergy/AdvReac Type Severity Reaction Status Date / Time promethazine HCl Allergy Unknown Verified 10/02/18 03:30 [From Phenergan] quetiapine [From Seroquel] Allergy Unknown Verified 10/28/18 21:23 ketorolac [From Toradol] AdvReac Unknown Verified 10/02/18 03:30 NSAIDS (Non-Steroidal AdvReac Unknown Verified 12/17/16 09:15 Anti-Inflamma tramadol AdvReac Unknown Verified 12/17/16 09:14 ED Review of Systems ROS: Stated complaint: SICKLE CELL PAIN, NAUSEA, AND PAIN WHILE URINATING Other details as noted in HPI Constitutional: denies: chills, fever Eyes: denies: eye pain, eye discharge, vision change ENT: denies: ear pain, throat pain Respiratory: denies: cough, shortness of breath, wheezing Cardiovascular: denies: chest pain, palpitations Endocrine: no symptoms reported Gastrointestinal: as per HPI, nausea. denies: abdominal pain, vomiting, diarrhea Genitourinary: as per HPI, urgency, dysuria. denies: discharge Musculoskeletal: back pain, arthralgia. denies: joint swelling Skin: denies: rash, lesions Neurological: denies: headache, weakness, paresthesias Psychiatric: denies: anxiety, depression Hematological/Lymphatic: denies: easy bleeding, easy bruising ED Past Medical Hx - Past Medical History Previous Medical History?: Yes Hx Congestive Heart Failure: No Hx Diabetes: No Hx Renal Disease: Yes (ckd2) Hx Sickle Cell Disease: Yes Hx Asthma: No Hx COPD: No Additional medical history: Renal cell carcinoma,hypothyroidism. A-Fib. Stage 2 kidney Disease. fibroids - Surgical History Past Surgical History?: Yes Hx Cholecystectomy: Yes Additional Surgical History: Removal left kidney, Thyroidectomy. x3, left ovary removal - Family History Family history: no significant - Social History Smoking Status: Never Smoker Substance Use Type: None - Medications Home Medications: Home Medications Medication Instructions Recorded Confirmed Last Taken Type Folic Acid 1 mg PO QDAY #30 capsule 02/05/18 Unknown Rx Levothyroxine Sodium [Synthroid] 175 mcg PO QDAY #20 tab 01/20/19 Unknown Rx oxyCODONE /ACETAMINOPHEN [Percocet 1 tab PO Q6HR PRN #15 tablet 03/08/19 Unknown Rx 5/325] Ciprofloxacin HCl [Ciprofloxacin 500 mg PO Q12HR 10 Days #20 tab 02/21/20 Unknown Rx TAB] HYDROcodone/APAP 7.5-325 [[place] 1 each PO Q6HR PRN #5 tablet 04/22/20 Unknown Rx 7.5-325 mg TAB] Ondansetron [Zofran ODT TAB] 4 mg PO Q6HR PRN #20 tab.rapdis 04/22/20 Unknown Rx ED Physical Exam - General Limitations: No Limitations General appearance: alert, in no apparent distress - Head Head exam: Present: atraumatic, normocephalic - Eye Eye exam: Present: normal appearance - ENT ENT exam: Present: mucous membranes moist - Neck Neck exam: Present: normal inspection - Respiratory Respiratory exam: Present: normal lung sounds bilaterally. Absent: respiratory distress, wheezes, rales, rhonchi - Cardiovascular Cardiovascular Exam: Present: regular rate, normal rhythm. Absent: systolic murmur, diastolic murmur, rubs, gallop - GI/Abdominal GI/Abdominal exam: Present: soft, normal bowel sounds - Extremities Exam Extremities exam: Present: normal inspection - Back Exam Back exam: Present: normal inspection - Neurological Exam Neurological exam: Present: alert, oriented X3 - Psychiatric Psychiatric exam: Present: normal affect, normal mood - Skin Skin exam: Present: warm, dry, intact, normal color. Absent: rash ED Course Vital Signs 04/21/20 04/21/20 04/21/20 20:06 22:13 22:15 Temperature 98.4 F Pulse Rate 80 84 85 Respiratory 20 25 H 17 Rate Blood Pressure 137/76 145/114 O2 Sat by Pulse 100 100 100 Oximetry 04/21/20 22:30 Temperature Pulse Rate 92 H Respiratory 12 Rate Blood Pressure 147/99 O2 Sat by Pulse 100 Oximetry - Reevaluation(s) Reevaluation #1: I discussed results with patient. Patient is not currently in sickle cell crisis. Patient to count is 123. Patient will have a CTA of the abdomen to rule out a kidney stones as the patient has dysuria, urinary symptoms, back pain and hematuria. 04/21/20 22:57 ED Medical Decision Making - Lab Data Result diagrams: 04/21/20 20:53 04/21/20 20:53 - Radiology Data Radiology results: report reviewed CT ABDOMEN AND PELVIS WITHOUT CONTRAST INDICATION / CLINICAL INFORMATION: RENAL STONE PROTOCOL!!! Pt complains of back pain with hematuria. TECHNIQUE: Axial CT images were obtained through the abdomen and pelvis without IV contrast. All CT scans at this location are performed using CT dose reduction for ALARA by means of automated exposure control. COMPARISON: None available. FINDINGS: LOWER CHEST: No significant abnormality. LIVER: No significant abnormality. GALLBLADDER: Removed. BILE DUCTS: No significant abnormality. PANCREAS: No significant abnormality. SPLEEN: No significant abnormality. ADRENALS: No significant abnormality. RIGHT KIDNEY and URETER: No significant abnormality. LEFT KIDNEY and URETER: Surgically removed.. STOMACH and SMALL BOWEL: No significant abnormality. COLON: No significant abnormality. APPENDIX: No significant abnormality. PERITONEUM: No free fluid. No free air. No fluid collection. LYMPH NODES: No significant adenopathy. AORTA and ARTERIES: No significant abnormality. IVC and VEINS: No significant abnormality. URINARY BLADDER: No significant abnormality. REPRODUCTIVE ORGANS: 2 cm cystlike lesion within the right ovary.. ADDITIONAL FINDINGS: None. SKELETAL SYSTEM: No significant abnormality. IMPRESSION: 1. No obstructive ureteral calculus identified. 2. Left-sided nephrectomy. - Medical Decision Making Patient is 49-year-old female that presents emergency room with complaints of sickle cell pain, back. Lower leg. Pulmonology, dysuria. Patient had labs done which showed a normal reticulocyte count. Patient was found to be anemic. Patient's chemistry was normal. Patient's urine showed hematuria. Patient had a CT scan to rule out a kidney stone and it was normal. Patient's abdominal CT negative for acute findings. Patient's stable for discharge. Patient given fluids, antiemetics and Dilaudid and the patient responded well. Patient is stable to follow-up as an outpatient. Patient given discharge instructions. - Differential Diagnosis Sickle cell crisis, back pain, UTI, kidney stone, Critical care attestation.: If time is entered above; I have spent that time in minutes in the direct care of this critically ill patient, excluding procedure time. ED Disposition Clinical Impression: Dysuria, Nausea alone, Gastroenteritis Sickle cell anemia Qualifiers: Sickle-cell associated disorders: without crisis Qualified Code(s): D57.1 - Sickle-cell disease without crisis Back pain Qualifiers: Back pain location: low back pain Chronicity: acute Back pain laterality: bilateral Sciatica presence: without sciatica Qualified Code(s): M54.5 - Low back pain Lumbar strain Qualifiers: Encounter type: initial encounter Qualified Code(s): S39.012A - Strain of muscle, fascia and tendon of lower back, initial encounter Hematuria Qualifiers: Hematuria type: benign essential microscopic Qualified Code(s): R31.1 - Benign essential microscopic hematuria Disposition: TO HOME OR SELFCARE Is pt being admited?: No Does the pt Need Aspirin: No Condition: Stable Instructions: Lumbar Sprain, Low Back Sprain or Strain Rehab-SportsMed, Hematuria, Adult, Viral Gastroenteritis, Adult Additional Instructions: Patient to follow-up with primary care in 2 to 3 days. Patient to follow-up with urologist in 2 to 3 days. Patient to follow-up with orthopedist in 2 to 3 days. Patient to rest. Patient to increase water. Patient to avoid strenuous exercise or heavy lifting until cleared by orthopedist. Patient to take Tylenol or ibuprofen as needed for pain. Patient to take meds as directed. Patient to return to the ER if condition worsens, changes or new symptoms arise. Prescriptions: HYDROcodone/APAP 7.5-325 [Center 7.5-325 mg TAB] 1 each PO Q6HR PRN #5 tablet PRN Reason: Pain Ondansetron [Zofran ODT TAB] 4 mg PO Q6HR PRN #20 tab.rapdis PRN Reason: Nausea And Vomiting Referrals: LENI HAZEL MD [Primary Care Provider] - 2-3 Days Time of Disposition: 02:00
[2020-04-21 22:13] LABS: Calcium 8.8 mg/dL (8.4-10.2)
[2020-04-21 22:17] LABS: HCG Qualitative,Urine Negative (Negative)
[2020-04-21 22:20] LABS: Bilirubin,Urine NEG (Negative); Blood,Urine MOD (Negative); Color,Urine Yellow (Yellow); Protein,Urine <15 mg/dL mg/dL (Negative)
[2020-04-21 22:26] LABS: Basophils # (Auto) 0.1 K/mm3 (0.0-0.1); Basophils % (Auto) 0.9 % (0.0-1.8); Eosinophils # (Auto) 0.1 K/mm3 (0.0-0.4); Eosinophils % (Auto) 1.9 % (0.0-4.3); Hemoglobin 8.3 gm/dl (10.1-14.3); Lymphocytes # (Auto) 1.5 K/mm3 (1.2-5.4); Lymphocytes % (Auto) 23.4 % (13.4-35.0); Mean Corpuscular HGB Conc 32 % (30-34); Monocytes # (Auto) 0.4 K/mm3 (0.0-0.8); Monocytes % (Auto) 6.3 % (0.0-7.3); Platelet Count 199 K/mm3 (140-440); Red Blood Count 3.89 M/mm3 (3.65-5.03); Red Cell Distribution Width 19.3 % (13.2-15.2)
[2020-04-21 22:27] LABS: Albumin 4.1 g/dL (3.9-5)
[2020-04-21 22:29] LABS: Mean Corpuscular Volume 67 fl (79-97)
[2020-04-21] MEDS ORDERED: D5W/0.2% NACL 1,000 ML IV SCH (23:00)
[2020-04-22] MEDS ORDERED: diphenhydrAMINE 50 MG/ML VIAL ONE (00:29)
[2020-04-22] MEDS ORDERED: diphenhydrAMINE 50 MG/ML VIAL IV ONE (00:33)
--- NOTE | 2020-04-22 01:11 | Cat Scan Report ---
CT ABDOMEN AND PELVIS WITHOUT CONTRAST INDICATION / CLINICAL INFORMATION: RENAL STONE PROTOCOL!!! Pt complains of back pain with hematuria. TECHNIQUE: Axial CT images were obtained through the abdomen and pelvis without IV contrast. All CT scans at [facility] location are performed using CT dose reduction for ALARA by means of automated exposure control. COMPARISON: None available. FINDINGS: LOWER CHEST: No significant abnormality. LIVER: No significant abnormality. GALLBLADDER: Removed. BILE DUCTS: No significant abnormality. PANCREAS: No significant abnormality. SPLEEN: No significant abnormality. ADRENALS: No significant abnormality. RIGHT KIDNEY and URETER: No significant abnormality. LEFT KIDNEY and URETER: Surgically removed.. STOMACH and SMALL BOWEL: No significant abnormality. COLON: No significant abnormality. APPENDIX: No significant abnormality. PERITONEUM: No free fluid. No free air. No fluid collection. LYMPH NODES: No significant adenopathy. AORTA and ARTERIES: No significant abnormality. IVC and VEINS: No significant abnormality. URINARY BLADDER: No significant abnormality. REPRODUCTIVE ORGANS: 2 cm cystlike lesion within the right ovary.. ADDITIONAL FINDINGS: None. SKELETAL SYSTEM: No significant abnormality. IMPRESSION: 1. No obstructive ureteral calculus identified. 2. Left-sided nephrectomy. Signer Name: Rupesh Jean MD Signed: 04/22/2020 1:06 AM Workstation Name: [id number]
[2020-04-22 02:20] VITALS: BP 112/79
== END 2020-04-22 02:21 | disposition home or self-care (01) ==
LOC: ED 19:48
DX: S39.012A Strain of muscle, fascia and tendon of lower back, initial encounter (principal); R31.9 Hematuria, unspecified; D57.1 Sickle-cell disease without crisis; K52.9 Noninfective gastroenteritis and colitis, unspecified; R11.0 Nausea; R30.0 Dysuria; M54.6 Pain in thoracic spine; Z90.49 Acquired absence of other specified parts of digestive tract; Z90.89 Acquired absence of other organs; Z98.890 Other specified postprocedural states; Z79.2 Long term (current) use of antibiotics; Z79.899 Other long term (current) drug therapy; Z88.8 Allergy status to other drugs, medicaments and biological substances; X58.XXXA Exposure to other specified factors, initial encounter; Y93.89 Activity, other specified; Y92.89 Other specified places as the place of occurrence of the external cause; Y99.8 Other external cause status
CPT/HCPCS: 36415; 74176; 80053; 81001; 81025; 85025; 85045; 96361; 96374; 96375; 96376; 99284; J1170; J1200; J2405

== ENCOUNTER 2020-07-29 08:46 | Emergency (ER) | payer OTHER, MEDICAID ==
[2020-07-29 08:59] VITALS: BP 157/97
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
[2020-07-29] MEDS ORDERED: oxyCODONE /ACETAMINOPHEN 5-325MG TAB PO ONE (09:31)
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
== END 2020-07-29 12:17 | disposition home or self-care (01) ==
LOC: ED 08:46
DX: S39.012A Strain of muscle, fascia and tendon of lower back, initial encounter (principal); S09.90XA Unspecified injury of head, initial encounter; I10 Essential (primary) hypertension; Z90.49 Acquired absence of other specified parts of digestive tract; Z98.890 Other specified postprocedural states; Z90.89 Acquired absence of other organs; Z79.2 Long term (current) use of antibiotics; Z79.899 Other long term (current) drug therapy; Z88.8 Allergy status to other drugs, medicaments and biological substances; V49.49XA Driver injured in collision with other motor vehicles in traffic accident, initial encounter; Y93.89 Activity, other specified; Y92.410 Unspecified street and highway as the place of occurrence of the external cause; Y99.8 Other external cause status
CPT/HCPCS: 70450; 72100; 72131